=== PATIENT | male | born 1945 | race Caucasian/White ===

== ENCOUNTER 2021-10-26 07:52 | Inpatient (IN) ==
[2021-10-26] MEDS ORDERED: IOPAMIDOL 100 ML BOTTLE IV ONE ×2 (07:53)
[2021-10-26] MEDS ORDERED: 0.9 % SODIUM CHLORIDE 1,000 ML IV ONE (08:06)
[2021-10-26 08:30] LABS: POC Calcium, Ionized 1.08 (1.16-1.32); POC Creatinine 0.9 (0.6-1.2); POC Potassium 2.4 (3.3-5.1)
[2021-10-26 09:30] LABS: Partial Thromboplastin Time 31.3 sec (20.0-37.0)
[2021-10-26 09:37] LABS: INR 1.6 (0.9-1.1); Prothrombin Time 19.3 sec (11.9-14.5)
[2021-10-26 09:49] LABS: ALT/SGPT 9 U/L (<40); AST/SGOT 20 U/L (<40); Albumin 2.7 gm/dL (3.2-5.2); Alkaline Phosphatase 95 U/L (39-117); Bilirubin,Total 1.1 mg/dL (0.1-1.0); Blood Urea Nitrogen 13 mg/dL (8-23); Calcium 8.1 mg/dL (8.6-10.4); Carbon Dioxide 21 mmol/L (22-30); Chloride 94 mmol/L (96-108); Globulin 2.6 gm/dL (2.2-3.7); Glomerular Filtration Rate 83; Glucose 206 mg/dL (70-105)
--- NOTE | 2021-10-26 10:02 | XRay Report ---
CLINICAL INFORMATION: Weakness COMPARISON: None. TECHNIQUE: Portable FINDINGS: The heart size, mediastinum and pulmonary vessels are unremarkable. The lungs are clear. There are no effusions. The bones and soft tissues are within normal limits. IMPRESSION: Normal chest. Interpreted and Authenticated by: Lencho Jurado 10/26/21
[2021-10-26 10:28] LABS: Basophils # (Auto) 0.01 K/mcL (0.00-0.30); Eosinophils # (Auto) 0 K/mcL (0.00-0.70); Hematocrit 27.5 % (40.1-51.0); Hemoglobin 9.5 g/dL (13.7-17.5); Lymphocytes # (Auto) 0.34 K/mcL (1.50-4.80); Mean Cell Volume 95.5 fL (80.0-100.0); Mean Corpuscular HGB Conc 34.5 g/dL (31.0-36.0); Mean Platelet Volume 10.2 fL (7.4-10.4); Monocytes # (Auto) 0.39 K/mcL (0.10-0.90); Platelet Count 135 K/mcL (140-440); RBC 2.88 M/mcL (4.63-6.08); WBC 1.5 K/mcL (4.5-11.0)
[2021-10-26] MEDS ORDERED: MAGNESIUM OXIDE 400 MG TABLET PO ONE (10:48)
[2021-10-26] MEDS ORDERED: POTASSIUM CHLORIDE 20 MEQ TABLET PO ONE (10:48)
[2021-10-26] MEDS ORDERED: POTASSIUM CHLORIDE 20 MEQ PACKET PO ONE (11:57)
[2021-10-26] MEDS ORDERED: MAGNESIUM SULFATE 8.12 MEQ in DEXTROSE 5% IN WATER 50 ML IV ONE (11:57)
--- NOTE | 2021-10-26 12:18 | Ultrasound Report ---
CLINICAL INFORMATION: Edema and pain COMPARISON: None. FINDINGS: The entire deep venous system including the common femoral, superficial femoral, popliteal and paired trifurcation calf veins are easily compressible and show normal venous blood flow on color and spectral Doppler. No evidence of thrombus IMPRESSION: Negative exam - no evidence of deep vein thrombosis. Interpreted and Authenticated by: Lencho Jurado 10/26/21
[2021-10-26] MEDS ORDERED: VANCOMYCIN 1,000 MG in 0.9 % SODIUM CHLORIDE 250 ML IV ONE (12:49)
[2021-10-26] MEDS ORDERED: PIPERACILLIN SODIUM/TAZOBACTAM 4.5 GM in DEXTROSE 5% IN WATER 50 ML IV ONE (12:49)
--- NOTE | 2021-10-26 14:54 | Cat Scan Report ---
CLINICAL INFORMATION: Sacral decubitus ulcer. Evaluate for osteomyelitis COMPARISON: Chest abdomen and pelvic CT 10/11/2021 TECHNIQUE: Following enteric contrast, 80 cc of [id number] were injected intravenously, and 60 seconds later, 0.625 mm helical slices were obtained from the mid heart through the subtrochanteric regions. Following reconstruction, 2.5 mm sagittal, coronal and axial reformatted images were processed and reviewed at bone, lung and soft tissue windows. Five minutes later, 0.625 mm helical slices were obtained from the mid heart through the kidneys and viewed at soft tissue windows.The exam was performed using radiation dose optimization techniques including, but not limited to, automated exposure control, adjustment of the mA and/or kV according to patient size and use of iterative reconstruction technique. FINDINGS: The lung bases are clear. No effusions. The visualized heart is mildly enlarged with calcific plaque the visualized coronary arteries also calcification in the mitral and aortic valves. Abdominal images show diminutive liver with homogeneous attenuation and slight cortical irregularity compatible with cirrhosis. The portal vein and tributaries are normal diameter. There is moderate ascites throughout the abdomen and pelvis. Gallbladder and bile ducts are normal: CBD is 5 mm. Both kidneys, adrenal glands, spleen and pancreas are normal. The aorta is normal diameter with scattered atherosclerotic plaque. Pelvic images show prostate, seminal vesicles and urinary bladder to be normal. The stomach, small and large bowel show symmetric dilatation compatible with ileus. There is mild colonic wall thickening particularly in the mid transverse segment suggesting edema or inflammation. Cerclage clips are present in the mid sigmoid colon reflecting partial colectomy and primary anastomosis. There is no free air. Bone windows show degenerative changes of lower lumbar spine. There is no evidence of osteomyelitis in the sacrococcygeal region in the area reported decubitus ulcer. No evidence of myositis or fasciitis.. IMPRESSION: 1. No evidence of abscess or osteomyelitis in the sacral region in the area of decubitus ulcer. 2. Cirrhosis with moderate ascites. No evidence of portal hypertension. 3. Moderate ileus. Mild wall thickening in the colon likely reflect edema related cirrhosis but colitis is not excluded. Interpreted and Authenticated by: Lencho Jurado 10/26/21
--- NOTE | 2021-10-26 15:45 | Internal Med History&Physical ---
HPI History of Present Illness Patient information: Note initiated : 10/26/21 at 3:32 pm Service Date, if different from initiated Date: [] Patient: Will Lyn 75 y/o M admitted on for Weak. Chief Complaint: [] History of present illness: Mr. Lyn is a 75 year old male with a history of hypertension, diabetes mellitus, obesity, nonhealing decubitus pressure ulcer, colon cancer status post partial hemicolectomy currently receiving chemotherapy who presented to the ED for feeling generally unwell. The patient was supposed to go to wound care today at [facility] but decided to go to the emergency department instead. In the emergency department, the patient was felt to have an infected decubitus ulcer. The patient was started on broad-spectrum antibiotics. In the ED, the patient was noted to be pancytopenic including neutropenia with an absolute neutrophil count of 740. Chemistry panel was noted for mild hyponatremia, hypokalemia, mild metabolic acidosis, relatively normal LFTs, albumin of 2.7. The patient was afebrile in the ED, he deniedrecent fevers. The patient had a CT abdomen and pelvis, the radiology report did not show any evidence of abscess or osteomyelitis in the sacral region of the area of the decubitus ulcer, there was cirrhosis with moderate ascites, no evidence of portal hypertension, there was moderate ileus with mild wall thickening in the colon felt to reflect edema related to cirrhosis but colitis was not excluded. The patient says that he recently experienced diarrhea and lower abdominal pain which is occurred before after receiving chemotherapy. Upon further evaluation, the patient says that he has also recently been having difficulty eating due to oral pain exacerbated by eating, bilateral lower extremity pitting edema. General surgery evaluated the patient and felt that a debridement was necessary. Hospital medicine was consulted for admission. It sounds like the patient's decubitus pressure ulcer started a couple months ago and has been progressively worsening. The patient says he received IV chemotherapy about 2 weeks ago and recently completed oral chemotherapy. Neither the patient nor his accompanying family member know which chemotherapy the patient has received. The patient normally follows at [facility] as well as [facility]. Review of systems Constitutional: Positive for fatigue, no fevers Eyes: no vision changes or pain Cardiovascular: no chest pain, no palpitations Respiratory: no cough or dyspnea Gastrointestinal: Painful swallowing, suprapubic abdominal pain, no nausea, vomiting, or diarrhea Genitourinary: no dysuria or difficulty voiding Musculoskeletal: no arthralgia or myalgia Integumentary: Positive for decubitus pressure ulcer. Neurological: no focal weakness or numbness Psychiatric: no anxiety or depression Physical exam General: Chronically ill-appearing 75-year-old male in no apparent distress. Head: Atraumatic, normal inspection. Eyes: normal appearance, no scleral icterus. Neck: full ROM Respiratory: no respiratory distress. Cardiovascular: normal rate and rhythm, S1, S2. GI/Abdominal: soft, nontender, no guarding. Extremities: bilateral lower extremity pitting edema full range of motion, nontender. Neurological: CN II-XII intact, intact motor, intact sensation. Psychiatric: normal mood. Skin: Palmar and pedal desquamation. PFSH PFSH All Active Problems (Updated 05/28/20 @ 23:34 by Nathan Barnhart DO) Concussion without loss of consciousness (Acute) Laceration (Acute) Fall from slip, trip, or stumble (Acute) Dyslipidemia (Acute) Essential hypertension (Acute) Type 2 diabetes mellitus (Acute) Medical History (Updated 05/28/20 @ 23:34 by Nathan Barnhart DO) Dyslipidemia Essential hypertension Type 2 diabetes mellitus MEDS/ALLERGIES Home Medications and Allergies Home Medications Medication Instructions Recorded Confirmed Type aspirin 325 mg tablet 325 mg PO DAILY 05/28/20 05/28/20 History atorvastatin 80 mg tablet 80 mg PO HS 05/28/20 05/28/20 History cinnamon bark 500 mg capsule 1,000 mg PO DAILY 05/28/20 05/28/20 History (Cinnamon) lisinopril 10 mg tablet 10 mg PO QDAY 05/28/20 05/28/20 History metformin 1,000 mg tablet 1,000 mg PO BID 05/28/20 05/28/20 History pioglitazone 30 mg tablet 30 mg PO QDAY 05/28/20 05/28/20 History salmon oil-omega-3 fatty acids 1,000 cap PO DAILY 05/28/20 05/28/20 History 1,000 mg-200 mg capsule Allergies Allergy/AdvReac Type Severity Reaction Status Date / Time No Known Drug Allergies Allergy Verified 10/26/21 07:53 EXAM Constitutional Vitals: Temp Pulse Resp BP Pulse Ox 98.4 F 67 16 76/52 96 10/26/21 07:53 10/26/21 14:59 10/26/21 07:53 10/26/21 14:59 10/26/21 14:59 DATA Data Completed and Pending Labs: Labs from last 24 hours 10/26/21 10/26/21 10/26/21 11:51 08:29 08:27 WBC RBC Hgb Hct POC Hct 26.0 L MCV MCH MCHC RDW Plt Count MPV Neut % (Auto) Lymph % (Auto) [place] % (Auto) Eos % (Auto) Baso % (Auto) Lymph # (Auto) [place] # (Auto) Eos # (Auto) Baso # (Auto) Absolute Neutrophils PT INR APTT VBG Lactic Acid 1.3 POC Sodium 132 L Sodium POC Potassium 2.4 L* Potassium POC Chloride 95 L Chloride Carbon Dioxide POC Total CO2 24.0 Anion Gap POC BUN 13 BUN Creatinine POC Creatinine 0.9 GFR Calculation Glucose POC Glucose 209 H Calcium POC WB Ioniz Calcium 1.08 L Total Bilirubin AST ALT Alkaline Phosphatase Total Protein Albumin Globulin Albumin/Globulin Ratio POC Troponin I 0.02 10/26/21 10/26/21 10/26/21 08:20 08:20 08:20 WBC 1.5 L RBC 2.88 L Hgb 9.5 L Hct 27.5 L POC Hct MCV 95.5 MCH 33.0 MCHC 34.5 RDW Plt Count 135 L MPV 10.2 Neut % (Auto) TNP Lymph % (Auto) TNP [place] % (Auto) TNP Eos % (Auto) TNP Baso % (Auto) TNP Lymph # (Auto) 0.34 L [place] # (Auto) 0.39 Eos # (Auto) 0 Baso # (Auto) 0.01 Absolute Neutrophils 0.74 L* PT 19.3 H INR 1.6 H APTT 31.3 VBG Lactic Acid 2.1 H POC Sodium Sodium 131 L POC Potassium Potassium 2.6 L* POC Chloride Chloride 94 L Carbon Dioxide 21 L POC Total CO2 Anion Gap 16.0 POC BUN BUN 13 Creatinine 0.9 POC Creatinine GFR Calculation 83 Glucose 206 H POC Glucose Calcium 8.1 L POC WB Ioniz Calcium Total Bilirubin 1.1 H AST 20 ALT 9 Alkaline Phosphatase 95 Total Protein 5.3 L Albumin 2.7 L Globulin 2.6 Albumin/Globulin Ratio 1.0 POC Troponin I A/P Narrative A/P Narrative: Assessment: 75 year old male with a history of diabetes mellitus, obesity, nonhealing decubitus pressure ulcer, colon cancer status post partial hemicolectomy currently receiving chemotherapy who presented to the ED for feeling generally unwell. In the ED, the patient was found to be pancytopenic, likely secondary to chemotherapy, and hypokalemic. General surgery was consulted regarding the patient's decubitus ulcer, recommended surgical debridement. Hospital medicine was consulted for admission due to the patient's comorbidities. #Decubitus pressure ulcer #Pancytopenia likely due to chemotherapy #Afebrile neutropenia #Hypokalemia likely secondary to loop diuretic #Bilateral lower extremity pedal edema #Liver cirrhosis with moderate ascites #Oropharyngeal candidiasis #Possible moderate ileus and mild colonic wall thickening #Diabetes mellitus #Colon cancer status post partial hemicolectomy currently on chemotherapy #Malnourishment Plan -General surgery consulted to evaluate pressure ulcer, wound care recom mendations. -Received antibiotics in the ED, will hold off for now in case surgical cultures can be obtained. -Monitor CBC, if the patient develops a fever will start antibiotics for neutropenic fever. -Check procalcitonin and CRP. -Replace potassium and follow. -Echocardiogram for bilateral lower extremity edema in the setting of a chemotherapy. -Nystatin for oropharyngeal candidiasis, treat for 7 to 14 days -Correction Humalog SSImedium. -Check hemoglobin A1c. -Home medication reconciliation, resume important meds. 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 -Wound cares. -NPO at midnight for surgery. -DVT prophylaxis: Hold until after surgery. -Disposition: TBD Time Spent With Patient Time: Total time spent is greater than 50% in coordination of care (as documented) at patient's floor/unit and/or counseling patient:
[2021-10-26] MEDS ORDERED: CLOTRIMAZOLE 10 MG TROCHE PO SCH (17:00)
[2021-10-26] MEDS ORDERED: DEXTROSE 31 GM ORAL.SUSP PO PRN (17:19)
[2021-10-26] MEDS ORDERED: DEXTROSE 50% 50 ML VIAL IV PRN (17:19)
[2021-10-26] MEDS: NYSTATIN 500,000 UNITS/5 ML ORAL.SUSP SSW SCH ×2 (18:04→20:40)
[2021-10-26 18:05] LABS: C-Reactive Protein 4.7 mg/dL (0.03-0.80)
--- NOTE | 2021-10-26 18:07 | General Surgery Consult Note ---
HPI Data of Consult Patient: new to practice Consult date: 10/26/21 Primary Care Provider: Qasim Murphy Consult Narrative Patient Information: Note initiated : 10/26/21 at 6:00 pm Service Date, if different from initiated Date: [] Patient: Will Lyn 75 y/o M admitted on 10/26/21 for Weakness. Mr. Lyn is a 75 year old male with a history of hypertension, diabetes mellitus, obesity, nonhealing decubitus pressure ulcer, colon cancer status post partial hemicolectomy currently receiving chemotherapy who presented to the ED for feeling generally unwell. The patient was supposed to go to wound care today at [facility] but decided to go to the emergency department instead. In the emergency department, the patient was felt to have an infected decubitus ulcer. The patient was started on broad-spectrum antibiotics. In the ED, the patient was noted to be pancytopenic including neutropenia with an absolute neutrophil count of 740. Chemistry panel was noted for mild hyponatremia, hypokalemia, mild metabolic acidosis, relatively normal LFTs, albumin of 2.7. T he patient was afebrile in the ED, he deniedrecent fevers. The patient had a CT abdomen and pelvis, the radiology report did not show any evidence of abscess or osteomyelitis in the sacral region of the area of the decubitus ulcer, there was cirrhosis with moderate ascites, no evidence of portal hypertension, there was moderate ileus with mild wall thickening in the colon felt to reflect edema related to cirrhosis but colitis was not excluded. The patient says that he recently experienced diarrhea and lower abdominal pain which is occurred before after receiving chemotherapy. Upon further evaluation, the patient says that he has also recently been having difficulty eating due to oral pain exacerbated by eating, bilateral lower extremity pitting edema. It sounds like the patient's decubitus pressure ulcer started a couple months ago and has been progressively worsening. The patient says he received IV chemotherapy about 2 weeks ago and recently completed oral chemotherapy. Neither the patient nor his accompanying family member know which chemotherapy the patient has received. The patient normally follows at [facility] as well as [facility]. Chief Complaint: [] Reason for consult: Evaluate for sacral decubitis cc:: CC: Griffin Anaya MD Review of Systems Review of systems: all systems reviewed, negative other than above PFSH PFSH All Active Problems Decubitus ulcer of sacral region, unstageable (Acute) Concussion without loss of consciousness (Acute) Laceration (Acute) Fall from slip, trip, or stumble (Acute) Dyslipidemia (Acute) Essential hypertension (Acute) Type 2 diabetes mellitus (Acute) Medical History Dyslipidemia Essential hypertension Type 2 diabetes mellitus MEDS/ALLERGIES Home Medications and Allergies Home Medications Medication Instructions Recorded Confirmed Type atorvastatin 80 mg tablet 80 mg PO HS 05/28/20 10/26/21 History cinnamon bark 500 mg capsule 1,000 mg PO DAILY 05/28/20 10/26/21 History (Cinnamon) metformin 1,000 mg tablet 1,000 mg PO BID 05/28/20 10/26/21 History salmon oil-omega-3 fatty acids 1,000 cap PO DAILY 05/28/20 10/26/21 History 1,000 mg-200 mg capsule cholestyramine (with sugar) 4 gram 1 ea PO BID 10/26/21 10/26/21 History oral powder diphenoxylate-atropine 2.5 2 tab PO QID 10/26/21 10/26/21 History mg-0.025 mg tablet doxycycline hyclate 100 mg capsule 1 cap PO BID 10/26/21 10/26/21 History furosemide 40 mg tablet 1 tab PO QDAY 10/26/21 10/26/21 History ondansetron HCl 8 mg tablet 8 mg PO Q8HP PRN 10/26/21 10/26/21 History pioglitazone 30 mg tablet 1 tab PO QDAY 10/26/21 10/26/21 History Allergies Allergy/AdvReac Type Severity Reaction Status Date / Time No Known Drug Allergies Allergy Verified 10/26/21 07:53 Physical Examination Vital Signs Vital signs: Temp Pulse Resp BP Pulse Ox 98.4 F 58 L 16 103/61 100 10/26/21 07:53 10/26/21 16:01 10/26/21 07:53 10/26/21 16:01 10/26/21 16:01 General physical appearance General physical exam: well developed, well nourished and no distress Eyes Eye exam: PERRL and normal ocular movement ENT ENT exam: normal pinna, normal nares, normal mucosa, no hearing loss and no congestion Head Head exam IM: Present atraumatic and normocephalic Neck Neck exam: no masses, no bruits, trachea midline, no lymphadenopathy and no venous distension Cardiovascular Cardiovascular exam IM: Present normal rate and rhythm Respiratory Respiratory exam: normal expansion, normal respiratory effort, clear to percussion and clear to auscultation Abdomen Abdomen: Present soft, non tender and bowel sounds Hernia: Present none Genitourinary Genitourinary (Male): Present normal penis with no external lesions Rectum Rectum: Present normal sphincter tone, no hemorrhoids, no tenderness, no masses and no bleeding Integumentary Integumentary: Present no rash, no growths and no abnormal pigmentation Neurologic Neurologic: Present normal coordination and normal sensation Musculoskeletal Musculoskeletal: Present normal gait and normal posture Psychiatric Psychiatric: Present oriented to time, oriented to person, oriented to place, speech is normal and memory intact Additional Findings Additional exam: non-stageable sacral decubitus ulcer Results Labs Result diagrams: 10/26/21 08:20 10/26/21 08:20 Labs: Abnormal lab results 10/26/21 10/26/21 10/26/21 Range/Units 08:20 08:20 08:20 WBC 1.5 L (4.5-11.0) K/mcL RBC 2.88 L (4.63-6.08) M/mcL Hgb 9.5 L (13.7-17.5) g/dL Hct 27.5 L (40.1-51.0) % POC Hct (41-55) Plt Count 135 L (140-440) K/mcL Lymph # (Auto) 0.34 L (1.50-4.80) K/mcL Absolute Neutrophils 0.74 L* (1.80-8.00) K/mcL PT 19.3 H (11.9-14.5) sec INR 1.6 H (0.9-1.1) VBG Lactic Acid 2.1 H (0.5-2.0) mmol/L POC Sodium (133-145) Sodium 131 L (133-145) mmol/L POC Potassium (3.3-5.1) Potassium 2.6 L* (3.3-5.1) mmol/L POC Chloride (96-108) Chloride 94 L (96-108) mmol/L Carbon Dioxide 21 L (22-30) mmol/L Glucose 206 H (70-105) mg/dL POC Glucose (70-105) Calcium 8.1 L (8.6-10.4) mg/dL POC WB Ioniz Calcium (1.16-1.32) Total Bilirubin 1.1 H (0.1-1.0) mg/dL Total Protein 5.3 L (5.9-8.4) gm/dL Albumin 2.7 L (3.2-5.2) gm/dL 10/26/21 Range/Units 08:27 WBC (4.5-11.0) K/mcL RBC (4.63-6.08) M/mcL Hgb (13.7-17.5) g/dL Hct (40.1-51.0) % POC Hct 26.0 L (41-55) Plt Count (140-440) K/mcL Lymph # (Auto) (1.50-4.80) K/mcL Absolute Neutrophils (1.80-8.00) K/mcL PT (11.9-14.5) sec INR (0.9-1.1) VBG Lactic Acid (0.5-2.0) mmol/L POC Sodium 132 L (133-145) Sodium (133-145) mmol/L POC Potassium 2.4 L* (3.3-5.1) Potassium (3.3-5.1) mmol/L POC Chloride 95 L (96-108) Chloride (96-108) mmol/L Carbon Dioxide (22-30) mmol/L Glucose (70-105) mg/dL POC Glucose 209 H (70-105) Calcium (8.6-10.4) mg/dL POC WB Ioniz Calcium 1.08 L (1.16-1.32) Total Bilirubin (0.1-1.0) mg/dL Total Protein (5.9-8.4) gm/dL Albumin (3.2-5.2) gm/dL Diabetes panel 10/26/21 Range/Units 08:20 Sodium 131 L (133-145) mmol/L Potassium 2.6 L* (3.3-5.1) mmol/L Chloride 94 L (96-108) mmol/L Carbon Dioxide 21 L (22-30) mmol/L BUN 13 (8-23) mg/dL Creatinine 0.9 (0.7-1.2) mg/dL Glucose 206 H (70-105) mg/dL Calcium 8.1 L (8.6-10.4) mg/dL AST 20 (<40) U/L ALT 9 (<40) U/L Alkaline Phosphatase 95 (39-117) U/L Total Protein 5.3 L (5.9-8.4) gm/dL Albumin 2.7 L (3.2-5.2) gm/dL Calcium panel 10/26/21 Range/Units 08:20 Calcium 8.1 L (8.6-10.4) mg/dL Albumin 2.7 L (3.2-5.2) gm/dL Pituitary panel 10/26/21 Range/Units 08:20 Sodium 131 L (133-145) mmol/L Potassium 2.6 L* (3.3-5.1) mmol/L Chloride 94 L (96-108) mmol/L Carbon Dioxide 21 L (22-30) mmol/L BUN 13 (8-23) mg/dL Creatinine 0.9 (0.7-1.2) mg/dL Glucose 206 H (70-105) mg/dL Calcium 8.1 L (8.6-10.4) mg/dL Adrenal panel 10/26/21 Range/Units 08:20 Sodium 131 L (133-145) mmol/L Potassium 2.6 L* (3.3-5.1) mmol/L Chloride 94 L (96-108) mmol/L Carbon Dioxide 21 L (22-30) mmol/L BUN 13 (8-23) mg/dL Creatinine 0.9 (0.7-1.2) mg/dL Glucose 206 H (70-105) mg/dL Calcium 8.1 L (8.6-10.4) mg/dL Total Bilirubin 1.1 H (0.1-1.0) mg/dL AST 20 (<40) U/L ALT 9 (<40) U/L Alkaline Phosphatase 95 (39-117) U/L Total Protein 5.3 L (5.9-8.4) gm/dL Albumin 2.7 L (3.2-5.2) gm/dL All other labs normal. A/P Assessment and plan (1) Decubitus ulcer of sacral region, unstageable: Plan: can not stage due to necrotic tissue, no evidence of abscess or osteo Plan: will take to OR tomorrow for debridement, further wound care by wound care at that point. Status: Acute Time Spent With Patient Time: Total time spent is greater than 50% in coordination of care (as documented) at patient's floor/unit and/or counseling patient:
[2021-10-26 18:33] LABS: Hemoglobin A1C 6.9 % Hgb (4.0-6.0)
[2021-10-26] MEDS ORDERED: HYDROcodone/APAP 5/325MG TABLET PO PRN (18:34)
[2021-10-26] MEDS: INSULIN LISPRO 1 UNIT/0.01 ML UNIT SQ SCH ×2 (18:35→22:06)
[2021-10-26] MEDS: NYSTATIN 500,000 UNITS/5 ML ORAL.SUSP PO SCH (18:36)
--- NOTE | 2021-10-26 18:57 | Emergency Department Note ---
HPI General Chief complaint: Weakness Stated complaint: Weak Time Seen by Provider: 10/26/21 07:59 Source: EMS Mode of arrival: EMS Limitations: no limitations History of Present Illness HPI Narrative: Narrative: 75-year-old male with history of colon cancer post hemicolectomy chemotherapy fourth round, sacral decubitus region ulcer was going to have initial wound care evaluation today presents for evaluation of about 3 to 4 days of generalized weakness and malaise. He denies fever or chills. He denies chest pain or shortness of breath. He is on unknown chemotherapy drug with oral regimen. He denies any chest pain or pressure. He denies cough or congestion. He denies shortness of breath. He denies abdominal pain or nausea but has had loose stools, no jaswant watery stools. He denies any dysuria or flank pain. He is tolerating p.o. but has reduced p.o. intake Related Data Home Medications Medication Instructions Recorded Confirmed atorvastatin 80 mg tablet 80 mg PO HS 05/28/20 10/26/21 cinnamon bark 500 mg capsule 1,000 mg PO DAILY 05/28/20 10/26/21 (Cinnamon) metformin 1,000 mg tablet 1,000 mg PO BID 05/28/20 10/26/21 salmon oil-omega-3 fatty acids 1,000 cap PO DAILY 05/28/20 10/26/21 1,000 mg-200 mg capsule cholestyramine (with sugar) 4 gram 1 ea PO BID 10/26/21 10/26/21 oral powder diphenoxylate-atropine 2.5 2 tab PO QID 10/26/21 10/26/21 mg-0.025 mg tablet doxycycline hyclate 100 mg capsule 1 cap PO BID 10/26/21 10/26/21 furosemide 40 mg tablet 1 tab PO QDAY 10/26/21 10/26/21 ondansetron HCl 8 mg tablet 8 mg PO Q8HP PRN 10/26/21 10/26/21 pioglitazone 30 mg tablet 1 tab PO QDAY 10/26/21 10/26/21 Allergies Allergy/AdvReac Type Severity Reaction Status Date / Time No Known Drug Allergies Allergy Verified 10/26/21 07:53 Review of Systems ROS ROS Narrative: Narrative: All systems ED: reviewed and negative except as stated. PFSH Narrative Patient History Narrative: Narrative: Medical/Surgical/Family History All Active Problems (Updated 10/26/21 @ 19:02 by Alex Allen DO) Decubitus ulcer, infected (Acute) Decubitus ulcer of sacral region, unstageable (Acute) Concussion without loss of consciousness (Acute) Laceration (Acute) Fall from slip, trip, or stumble (Acute) Dyslipidemia (Acute) Essential hypertension (Acute) Type 2 diabetes mellitus (Acute) Medical History Dyslipidemia Essential hypertension Type 2 diabetes mellitus Social History Smoking Status: Smokeless tobacco Exam Narrative Narrative: Narrative: General Limitations: no limitations General appearance: Present alert and in no apparent distress Head Head: Present atraumatic and normocephalic Eye Eye: Present normal appearance and EOMI ENT ENT: Present normal exam; Absent mucous membranes moist Neck Neck: Present normal inspection and full ROM Chest Chest: Present normal inspection and symmetric chest wall rise Respiratory Respiratory: Present normal lung sounds bilaterally; Absent respiratory distress Cardiovascular Cardiovascular: Present regular rate and normal rhythm Adbominal Abdominal: Present soft; Absent distention or tenderness Extremities Extremities: Present normal inspection, full ROM and other (Bilateral palms and soles erythematous and peeling, or patient reports that has been this way for the past several weeks) Back Back: Present other (Sacral decub ulcer with small amount of purulent drainage, mild surrounding erythema, tender surrounding this area) Neurological Neurological: Present alert, oriented X3 and CN II-XII intact; Absent motor sensory deficit Psychiatric Psychiatric: Present normal affect and normal mood Skin Skin: Present warm (WNL), dry and normal color Course Vital Signs Vital signs: Vital Signs Temperature 98.4 F 10/26/21 07:53 Pulse Rate 82 10/26/21 07:53 Respiratory Rate 16 10/26/21 07:53 Blood Pressure 115/64 10/26/21 07:53 Pulse Oximetry (%) 99 10/26/21 07:53 Temperature 97.6 F 10/26/21 18:15 Pulse Rate 89 10/26/21 18:15 Respiratory Rate 20 10/26/21 18:15 Blood Pressure 83/58 10/26/21 18:15 Pulse Oximetry (%) 100 10/26/21 18:15 [facility] Narrative Medical decision making narrative: Narrative: Patient with generalized weakness and systemic symptoms concerning for infected sacral decubitus ulcer. He has leukopenia likely consistent with this but vitals otherwise normal and I do not believe he has severe sepsis. He felt better after IV fluids and was given vancomycin and Zosyn for broad-spectrum coverage for his wound with underlying diabetes. He was admitted to the hospitalist for further management with surgical consult for debridement. He was also found to have significant hypokalemia which was repleted in the emergency department Lab Data Lab results reviewed: Yes I reviewed the patient's lab results. Result diagrams: 10/26/21 08:20 10/26/21 08:20 Labs: Lab Results 10/26/21 10/26/21 10/26/21 Range/Units 08:20 08:20 08:20 WBC 1.5 L (4.5-11.0) K/mcL RBC 2.88 L (4.63-6.08) M/mcL Hgb 9.5 L (13.7-17.5) g/dL Hct 27.5 L (40.1-51.0) % POC Hct (41-55) MCV 95.5 (80.0-100.0) fL MCH 33.0 (26.0-34.0) pg MCHC 34.5 (31.0-36.0) g/dL RDW (11.5-14.5) % Plt Count 135 L (140-440) K/mcL MPV 10.2 (7.4-10.4) fL Neut % (Auto) TNP Lymph % (Auto) TNP [place] % (Auto) TNP Eos % (Auto) TNP Baso % (Auto) TNP Lymph # (Auto) 0.34 L (1.50-4.80) K/mcL [place] # (Auto) 0.39 (0.10-0.90) K/mcL Eos # (Auto) 0 (0.00-0.70) K/mcL Baso # (Auto) 0.01 (0.00-0.30) K/mcL Absolute Neutrophils 0.74 L* (1.80-8.00) K/mcL PT 19.3 H (11.9-14.5) sec INR 1.6 H (0.9-1.1) APTT 31.3 (20.0-37.0) sec VBG Lactic Acid 2.1 H (0.5-2.0) mmol/L POC Sodium (133-145) Sodium 131 L (133-145) mmol/L POC Potassium (3.3-5.1) Potassium 2.6 L* (3.3-5.1) mmol/L POC Chloride (96-108) Chloride 94 L (96-108) mmol/L Carbon Dioxide 21 L (22-30) mmol/L POC Total CO2 (22-30) Anion Gap 16.0 (8.0-16.0) POC BUN (6-20) BUN 13 (8-23) mg/dL Creatinine 0.9 (0.7-1.2) mg/dL POC Creatinine (0.6-1.2) GFR Calculation 83 Glucose 206 H (70-105) mg/dL POC Glucose (70-105) Hemoglobin A1c (4.0-6.0) % Hgb Estim Average Glucose mg/dL Calcium 8.1 L (8.6-10.4) mg/dL POC WB Ioniz Calcium (1.16-1.32) Magnesium (1.6-2.5) mg/dL Total Bilirubin 1.1 H (0.1-1.0) mg/dL AST 20 (<40) U/L ALT 9 (<40) U/L Alkaline Phosphatase 95 (39-117) U/L C-Reactive Protein (0.03-0.80) mg/dL Total Protein 5.3 L (5.9-8.4) gm/dL Albumin 2.7 L (3.2-5.2) gm/dL Globulin 2.6 (2.2-3.7) gm/dL Albumin/Globulin Ratio 1.0 (1.0-2.3) Procalcitonin (<0.10) ng/mL POC Troponin I (0.02-0.08) 10/26/21 10/26/21 10/26/21 Range/Units 08:27 08:29 08:40 WBC (4.5-11.0) K/mcL RBC (4.63-6.08) M/mcL Hgb (13.7-17.5) g/dL Hct (40.1-51.0) % POC Hct 26.0 L (41-55) MCV (80.0-100.0) fL MCH (26.0-34.0) pg MCHC (31.0-36.0) g/dL RDW (11.5-14.5) % Plt Count (140-440) K/mcL MPV (7.4-10.4) fL Neut % (Auto) Lymph % (Auto) [place] % (Auto) Eos % (Auto) Baso % (Auto) Lymph # (Auto) (1.50-4.80) K/mcL [place] # (Auto) (0.10-0.90) K/mcL Eos # (Auto) (0.00-0.70) K/mcL Baso # (Auto) (0.00-0.30) K/mcL Absolute Neutrophils (1.80-8.00) K/mcL PT (11.9-14.5) sec INR (0.9-1.1) APTT (20.0-37.0) sec VBG Lactic Acid (0.5-2.0) mmol/L POC Sodium 132 L (133-145) Sodium (133-145) mmol/L POC Potassium 2.4 L* (3.3-5.1) Potassium (3.3-5.1) mmol/L POC Chloride 95 L (96-108) Chloride (96-108) mmol/L Carbon Dioxide (22-30) mmol/L POC Total CO2 24.0 (22-30) Anion Gap (8.0-16.0) POC BUN 13 (6-20) BUN (8-23) mg/dL Creatinine (0.7-1.2) mg/dL POC Creatinine 0.9 (0.6-1.2) GFR Calculation Glucose (70-105) mg/dL POC Glucose 209 H (70-105) Hemoglobin A1c 6.9 H (4.0-6.0) % Hgb Estim Average Glucose 151 mg/dL Calcium (8.6-10.4) mg/dL POC WB Ioniz Calcium 1.08 L (1.16-1.32) Magnesium 1.8 (1.6-2.5) mg/dL Total Bilirubin (0.1-1.0) mg/dL AST (<40) U/L ALT (<40) U/L Alkaline Phosphatase (39-117) U/L C-Reactive Protein 4.70 H (0.03-0.80) mg/dL Total Protein (5.9-8.4) gm/dL Albumin (3.2-5.2) gm/dL Globulin (2.2-3.7) gm/dL Albumin/Globulin Ratio (1.0-2.3) Procalcitonin (<0.10) ng/mL POC Troponin I 0.02 (0.02-0.08) 10/26/21 10/26/21 Range/Units 08:40 11:51 WBC (4.5-11.0) K/mcL RBC (4.63-6.08) M/mcL Hgb (13.7-17.5) g/dL Hct (40.1-51.0) % POC Hct (41-55) MCV (80.0-100.0) fL MCH (26.0-34.0) pg MCHC (31.0-36.0) g/dL RDW (11.5-14.5) % Plt Count (140-440) K/mcL MPV (7.4-10.4) fL Neut % (Auto) Lymph % (Auto) [place] % (Auto) Eos % (Auto) Baso % (Auto) Lymph # (Auto) (1.50-4.80) K/mcL [place] # (Auto) (0.10-0.90) K/mcL Eos # (Auto) (0.00-0.70) K/mcL Baso # (Auto) (0.00-0.30) K/mcL Absolute Neutrophils (1.80-8.00) K/mcL PT (11.9-14.5) sec INR (0.9-1.1) APTT (20.0-37.0) sec VBG Lactic Acid 1.3 (0.5-2.0) mmol/L POC Sodium (133-145) Sodium (133-145) mmol/L POC Potassium (3.3-5.1) Potassium (3.3-5.1) mmol/L POC Chloride (96-108) Chloride (96-108) mmol/L Carbon Dioxide (22-30) mmol/L POC Total CO2 (22-30) Anion Gap (8.0-16.0) POC BUN (6-20) BUN (8-23) mg/dL Creatinine (0.7-1.2) mg/dL POC Creatinine (0.6-1.2) GFR Calculation Glucose (70-105) mg/dL POC Glucose (70-105) Hemoglobin A1c (4.0-6.0) % Hgb Estim Average Glucose mg/dL Calcium (8.6-10.4) mg/dL POC WB Ioniz Calcium (1.16-1.32) Magnesium (1.6-2.5) mg/dL Total Bilirubin (0.1-1.0) mg/dL AST (<40) U/L ALT (<40) U/L Alkaline Phosphatase (39-117) U/L C-Reactive Protein (0.03-0.80) mg/dL Total Protein (5.9-8.4) gm/dL Albumin (3.2-5.2) gm/dL Globulin (2.2-3.7) gm/dL Albumin/Globulin Ratio (1.0-2.3) Procalcitonin 0.47 H (<0.10) ng/mL POC Troponin I (0.02-0.08) ED POC Tests ED POC Tests: MARCIE - SARS Antigen Negative Radiology Data Radiology results reviewed: Yes I reviewed the patient's radiology results. Discharge Plan Patient/Caregiver Discharge Instructions Pt seen by DUMPER [employer] CLEANER/PA only: No Clinical Impression: Decubitus ulcer, infected Patient Disposition: Xfer As Inpt ([facility]) Discharge Date/Time: 10/26/21 17:11
[2021-10-26 19:11] LABS: Appearance,Urine CLEAR (Clear); Bilirubin,Urine Negative (Negative); Color,Urine YELLOW; Culture Indicated,Urine No; Glucose,Urine (UA) >=500 mg/dL (Negative); Ketones,Urine 20 mg/dL (Negative); Leukocyte Esterase,Urine Negative /uL (Negative); Mucus,Urine FEW /hpf; Nitrate,Urine Negative (Negative); Protein,Urine Negative (Negative); Specific Gravity,Urine 1.038 (1.000-1.035); Urine Blood 0.03 mg/dL (Negative); Urine RBC < 1 /hpf (0-3); Urine Squamous Epithelial Cell 0 /hpf (0-4); Urine WBC 5 /hpf (0-4); Urobilinogen,Urine Negative
[2021-10-26] MEDS: ACETAMINOPHEN 500 MG TABLET PO PRN (20:40)
[2021-10-26] MEDS: ATORVASTATIN 40 MG TABLET PO SCH (20:40)
[2021-10-26] MEDS: CHOLESTYRAMINE/ASPARTAME 4 GM POWD.PACK PO SCH (21:55)
[2021-10-26] MEDS: 0.9 % SODIUM CHLORIDE 10 ML SYRINGE IV SCH (22:07)
[2021-10-26] MEDS: SENNOSIDES 1 TABLET PO SCH (22:07)
[2021-10-27] MEDS: ACETAMINOPHEN 500 MG TABLET PO PRN (03:52)
[2021-10-27] MEDS: 0.9 % SODIUM CHLORIDE 10 ML SYRINGE IV SCH ×3 (05:58→21:06)
[2021-10-27 06:45] LABS: Hematocrit 24.4 % (40.1-51.0); Hemoglobin 8.6 g/dL (13.7-17.5); Mean Cell Volume 94.9 fL (80.0-100.0); Mean Corpuscular HGB Conc 35.2 g/dL (31.0-36.0); Mean Platelet Volume 9.6 fL (7.4-10.4); Platelet Count 119 K/mcL (140-440); RBC 2.57 M/mcL (4.63-6.08); WBC 3.3 K/mcL (4.5-11.0)
[2021-10-27 07:20] LABS: ALT/SGPT 9 U/L (<40); AST/SGOT 18 U/L (<40); Albumin 2.2 gm/dL (3.2-5.2); Alkaline Phosphatase 86 U/L (39-117); Bilirubin,Direct 0.6 mg/dL (<0.3); Blood Urea Nitrogen 16 mg/dL (8-23); Calcium 7.8 mg/dL (8.6-10.4); Carbon Dioxide 21 mmol/L (22-30); Chloride 97 mmol/L (96-108); Globulin 2.3 gm/dL (2.2-3.7); Glomerular Filtration Rate 87; Glucose 140 mg/dL (70-105); Lactate Dehydrogenase 226 U/L (135-225); Phosphorous 1.3 mg/dL (2.5-4.5); Triglycerides 71 mg/dL (<150); Uric Acid 1.9 mg/dL (2.5-8.0)
[2021-10-27] MEDS ORDERED: POTASSIUM CHLORIDE 20 MEQ TABLET PO ONE ×2 (07:26→12:08)
[2021-10-27] MEDS: INSULIN LISPRO 1 UNIT/0.01 ML UNIT SQ SCH ×4 (07:36→21:05)
[2021-10-27] MEDS: CHOLESTYRAMINE/ASPARTAME 4 GM POWD.PACK PO SCH ×2 (07:39→21:15)
[2021-10-27] MEDS ORDERED: POTASSIUM PHOSPHATE 40 MEQ in DEXTROSE 5% IN WATER 500 ML IV SCH (08:00)
[2021-10-27 08:56] LABS: Anisocytosis 2+ (None Seen); Band Neutrophils % 18 % (0-10); Eosinophils % (Manual) 1 % (0-7); Lymphocytes % 26 % (15-49); Metamyelocytes % 6 %; Monocytes % (Manual) 15 % (1-12); Myelocytes % 6 %; Nucleated Red Blood Cells 3 % (0-0); Platelet Estimate DECREASED (Normal); RBC Morphology ABNORMAL (Normal); Segmented Neutrophils % 28 % (38-78)
[2021-10-27] MEDS ORDERED: FUROSEMIDE 40 MG TABLET PO SCH (09:00)
[2021-10-27] MEDS: NYSTATIN 500,000 UNITS/5 ML ORAL.SUSP SSW SCH ×4 (09:47→21:05)
[2021-10-27] MEDS ORDERED: SCOPOLAMINE 1 PATCH PATCH TOPICAL PRN (10:00)
[2021-10-27] MEDS ORDERED: IPRATROPIUM/ALBUTEROL 3 ML AMPUL.NEB NEB PRN (10:00)
[2021-10-27] MEDS ORDERED: fentaNYL 100 MCG/2 ML VIAL IV ONE ×2 (10:23)
[2021-10-27] MEDS ORDERED: KETAMINE 50 MG/ML Syringe (ANEST) IV ONE ×3 (10:23)
[2021-10-27] MEDS ORDERED: PROPOFOL 200 MG/20 ML VIAL IV ONE ×2 (10:23)
[2021-10-27] MEDS ORDERED: ONDANSETRON 4 MG/2 ML VIAL ONE ×2 (10:23)
[2021-10-27] MEDS ORDERED: DEXAMETHASONE 10 MG/ML VIAL ONE ×2 (10:23)
[2021-10-27] MEDS ORDERED: LIDOCAINE 1% 20 ML, BUPIVACAINE W/EPI 0.5% 20 ML SQ ONE (11:30)
--- NOTE | 2021-10-27 11:35 | Operative Note ---
Brief Operative Note Date of procedure: 10/27/21 Pre-op diagnosis: Sacral decub Post-op diagnosis: other (Gluteal pressure sore) Procedure: Operative debridement down to subcutaneous tissue Grafts/Implants: No Anesthesia: MAC Findings: Necrotic skin down to subcutaneous tissue Complications: none Surgeon: Tunde Mullins Estimated blood loss (cc): 10 Specimens Removed/Pathology: other (Necrotic skin right gluteal lesion) Condition: stable Disposition: PACU Operative Note Operative Note: After Hours benefits and alternatives to the procedure were discussed with the patient at length he verbalized understanding and desire to continue the procedure. Patient was taken main operating place upon the operative table. Monitored anesthesia care was administered throughout the case. Patient's and draped in the standard sterile surgical fashion after being placed in a left lateral decubitus position. Surgical timeout was taken to verify patient and procedure being performed. 1% lidocaine half percent Marcaine was used for local anesthesia. Attention was first turned to the right gluteal wound where the necrotic area of the skin was sharply excised down to the subcutaneous tissue. The necrosis did not extend past the skin and dermis and good healthy subcutaneous tissues were identified. Hemostasis was obtained with electrocautery. The skin was passed off the field for surgical pathology. Attention was turned to the left gluteal region where no further pathology was identified. Betadine soaked 4 x 4 gauze was placed in the wound covered with an ABD and mesh underwear. Patient was then awake from a seizure transported postanesthesia care unit awake alert in good condition.
--- NOTE | 2021-10-27 15:54 | Internal Med Progress Note ---
SUBJECTIVE Subjective Patient information: Note initiated : 10/27/21 at 3:53 pm Service Date, if different from initiated Date: [] Patient: Will Lyn 75 y/o M admitted on 10/26/21 for Weak. Chief Complaint: [] Interval history: Mr. Lyn is a 75 year old male with a history of hypertension, diabetes mellitus, obesity, nonhealing decubitus pressure ulcer, colon cancer status post partial hemicolectomy currently receiving chemotherapy who presented to the ED for feeling generally unwell. The patient was supposed to go to wound care today at [facility] but decided to go to the emergency department instead. In the emergency department, the patient was felt to have an infected decubitus ulcer. The patient was started on broad-spectrum antibiotics. In the ED, the patient was noted to be pancytopenic including neutropenia with an absolute neutrophil count of 740. Chemistry panel was noted for mild hyponatremia, hypokalemia, mild metabolic acidosis, relatively normal LFTs, albumin of 2.7. The patient was afebrile in the ED, he deniedrecent fevers. The patient had a CT abdomen and pelvis, the radiology report did not show any evidence of abscess or osteomyelitis in the sacral region of the area of the decubitus ulcer, there was cirrhosis with moderate ascites, no evidence of portal hypertension, there was moderate ileus with mild wall thickening in the colon felt to reflect edema related to cirrhosis but colitis was not excluded. The patient says that he recently experienced diarrhea and lower abdominal pain which is occurred before after receiving chemotherapy. Upon further evaluation, the patient says that he has also recently been having difficulty eating due to oral pain exacerbated by eating, bilateral lower extremity pitting edema. General surgery evaluated the patient and felt that a debridement was necessary. Hospital medicine was consulted for admission. It sounds like the patient's decubitus pressure ulcer started a couple months ago and has been progressively worsening. The patient says he received IV chemotherapy about 2 weeks ago and recently completed oral chemotherapy. Neither the patient nor his accompanying family member know which chemotherapy the patient has received. The patient normally follows at [facility] well as [facility]. 10/27 General surgery performed a debridement of the gluteal pressure ulcer, noted necrotic tissue but no evidence of infection. Replaced potassium and phosphorus, holding lasix until potassium normalizes. Two loose bowel movements this morning per the patient. Physical exam General: Chronically ill-appearing 75-year-old male in no apparent distress. Head: Atraumatic, normal inspection. Eyes: normal appearance, no scleral icterus. Neck: full ROM Respiratory: no respiratory distress. Cardiovascular: normal rate and rhythm, S1, S2. GI/Abdominal: soft, nontender, no guarding. Extremities: bilateral lower extremity pitting edema full range of motion, nontender. Neurological: CN II-XII intact, intact motor, intact sensation. Psychiatric: normal mood. Skin: Palmar and pedal desquamation. Constitutional Vitals: Vital Signs Temp Pulse Resp BP Pulse Ox 97.1 F 72 16 108/67 97 10/27/21 15:39 10/27/21 15:39 10/27/21 15:39 10/27/21 15:39 10/27/21 15:39 Period Temp Pulse Resp BP Sys/Hawkins Pulse Ox Last 24 Hr 96.7 F-97.8 F 58-89 15-20 83-119/51-70 96-100 Intake and Output 10/27/21 10/27/21 10/27/21 05:59 13:59 21:59 Intake Total 055 390.7708 Output Total 5 200 Balance 482 875.4981 Intake & Output: Intake & Output 10/27/21 10/27/21 10/27/21 05:59 13:59 21:59 Intake Total 271 842.8153 Output Total 5 200 Balance 136 832.0925 Intake: IV 509.0909 Potassium Phosphate 40 Meq In 509.0909 Dextrose 5% in Water 500 ml @ 84.848 mls/hr IV 0800 [facility] Rx#: [id number] IV - Manual Only 600 Output: Void Amount 200 Estimated Blood Loss 5 Other: Meal Lunch Percent of Meal Consumed 75% Feeding Ability Independent Urine Color Light Melanie Stool Size Small Small Stool Color Brown Brown Stool Consistency Loose Loose # Voids 1 # Bowel Movements 1 # of times incontinent of 1 Bowels OBJ DATA Labs CBC & Chem 7: 10/27/21 05:21 10/27/21 05:21 Labs: Abnormal Lab Results 10/27/21 10/27/21 10/26/21 05:21 05:21 18:32 WBC 3.3 L RBC 2.57 L Hgb 8.6 L Hct 24.4 L POC Hct Plt Count 119 L Lymph # (Auto) Seg Neutrophils % 28 L Band Neutrophils % 18 H Monocytes % (Manual) 15 H Absolute Neutrophils Nucleated RBCs 3 H Platelet Estimate Decreased A RBC Morphology Abnormal A Anisocytosis 2+ A PT INR VBG Lactic Acid POC Sodium Sodium 132 L POC Potassium Potassium 2.2 L* POC Chloride Chloride Carbon Dioxide 21 L Glucose 140 H POC Glucose Hemoglobin A1c Uric Acid 1.9 L Calcium 7.8 L POC WB Ioniz Calcium Phosphorus 1.3 L Total Bilirubin Direct Bilirubin 0.6 H Lactate Dehydrogenase 226 H C-Reactive Protein Total Protein 4.5 L Albumin 2.2 L Procalcitonin Urine Glucose (UA) >=500 A Urine Ketones 20 A Urine WBC 5 H Urine Mucus Few A 10/26/21 10/26/21 10/26/21 08:40 08:40 08:27 WBC RBC Hgb Hct POC Hct 26.0 L Plt Count Lymph # (Auto) Seg Neutrophils % Band Neutrophils % Monocytes % (Manual) Absolute Neutrophils Nucleated RBCs Platelet Estimate RBC Morphology Anisocytosis PT INR VBG Lactic Acid POC Sodium 132 L Sodium POC Potassium 2.4 L* Potassium POC Chloride 95 L Chloride Carbon Dioxide Glucose POC Glucose 209 H Hemoglobin A1c 6.9 H Uric Acid Calcium POC WB Ioniz Calcium 1.08 L Phosphorus Total Bilirubin Direct Bilirubin Lactate Dehydrogenase C-Reactive Protein 4.70 H Total Protein Albumin Procalcitonin 0.47 H Urine Glucose (UA) Urine Ketones Urine WBC Urine Mucus 10/26/21 10/26/21 10/26/21 08:20 08:20 08:20 WBC 1.5 L RBC 2.88 L Hgb 9.5 L Hct 27.5 L POC Hct Plt Count 135 L Lymph # (Auto) 0.34 L Seg Neutrophils % Band Neutrophils % Monocytes % (Manual) Absolute Neutrophils 0.74 L* Nucleated RBCs Platelet Estimate RBC Morphology Anisocytosis PT 19.3 H INR 1.6 H VBG Lactic Acid 2.1 H POC Sodium Sodium 131 L POC Potassium Potassium 2.6 L* POC Chloride Chloride 94 L Carbon Dioxide 21 L Glucose 206 H POC Glucose Hemoglobin A1c Uric Acid Calcium 8.1 L POC WB Ioniz Calcium Phosphorus Total Bilirubin 1.1 H Direct Bilirubin Lactate Dehydrogenase C-Reactive Protein Total Protein 5.3 L Albumin 2.7 L Procalcitonin Urine Glucose (UA) Urine Ketones Urine WBC Urine Mucus Meds: Medications Acetaminophen (Acetaminophen 500 Mg Tablet) 500 mg PO Q4HP PRN; Protocol PRN Reason: Per Pain Protocol Last Admin: 10/27/21 03:52 Dose: 500 mg Documented by: Hydrocodone Bitart/Acetaminophen (Hydrocodone/Apap 5/325mg Tablet) 1 tab PO Q4HP PRN; Protocol PRN Reason: Per Pain Protocol Atorvastatin Calcium (Atorvastatin 40 Mg Tablet) 80 mg PO [facility] Last Admin: 10/26/21 20:40 Dose: 80 mg Documented by: Cholestyramine Resin (Cholestyramine/Aspartame 4 Gm Powd.Pack) 4 gm PO BID@0700,1900 [facility] Last Admin: 10/27/21 07:39 Dose: Not Given Documented by: Dextrose (Dextrose 50% 50 Ml Vial) 0 ml IV UD PRN PRN Reason: Per Sliding Scale Diagnostic Test (Pha) (Accu-Chek 1 Each Strip) 1 each FS [facility] Last Admin: 10/27/21 11:41 Dose: 1 each Documented by: Glucose (Dextrose 31 Gm Oral.Susp) 15 gm PO PRN PRN PRN Reason: Hypoglycemia Insulin Human Lispro (Insulin Lispro 1 Unit/0.01 Ml Unit) 0 unit SQ [facility]; Protocol Last Admin: 10/27/21 12:31 Dose: 2 units Documented by: Nystatin (Nystatin 500,000 Units/5 Ml Oral.Susp) 500,000 units SSW QID [facility] Stop: 11/02/21 17:18 Last Admin: 10/27/21 15:01 Dose: 500,000 units Documented by: Ondansetron HCl (Ondansetron 4 Mg/2 Ml Vial) 4 mg IV Q6HP PRN PRN Reason: Nausea And Vomiting Senna (Sennosides 1 Tablet) 2 tab PO [facility] Last Admin: 10/26/21 22:07 Dose: Not Given Documented by: Sodium Chloride (0.9 % Sodium Chloride 10 Ml Syringe) 10 ml IV Q8 [facility] Last Admin: 10/27/21 15:18 Dose: 10 ml Documented by: A/P Narrative A/P Narrative: Assessment: 75 year old male with a history of diabetes mellitus, obesity, nonhealing decubitus pressure ulcer, colon cancer status post partial hemicolectomy currently receiving chemotherapy who presented to the ED for feeling generally unwell. In the ED, the patient was found to be pancytopenic, likely secondary to chemotherapy, and hypokalemic. General surgery was consulted regarding the patient's decubitus ulcer, recommended surgical debridement. Hospital medicine was consulted for admission due to the patient's comorbidities. #Gluteal pressure ulcer #Pancytopenia likely due to chemotherapy #Neutropenia #Hypokalemia likely secondary to loop diuretic #Hypophosphatemia #Bilateral lower extremity pedal edema #Liver cirrhosis with moderate ascites #Oropharyngeal candidiasis #Possible mild colonic wall thickening per CT #Diarrhea #Diabetes mellitus #Colon cancer status post partial hemicolectomy currently on chemotherapy #Malnourishment Plan -Monitor CBC and vitals, if the patient develops a fever will start antibiotics for neutropenic fever. -Replace potassium and phosphorus. -Holding home lasix until potassium level normal. -Follow up pending Echocardiogram for bilateral lower extremity edema in the setting of a chemotherapy. -Nystatin for oropharyngeal candidiasis, treat for 7 to 14 days -Correction Humalog SSImedium. -Resume home Atorvastatin and cholestyramine. 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 -Wound cares. -Consistent carbohydrate diet. -media monitor. -DVT prophylaxis: Lovenox -Disposition: TBD, referral to wound care clinic at discharge. Time Spent With Patient Time: Total time spent is greater than 50% in coordination of care (as documented) at patient's floor/unit and/or counseling patient: QUALITY VTE Deep Vein Thrombosis/Pulmonary Embolism Present on Admission: No
[2021-10-27] MEDS: SENNOSIDES 1 TABLET PO SCH (21:06)
[2021-10-27] MEDS: ATORVASTATIN 40 MG TABLET PO SCH (21:06)
[2021-10-28] MEDS: 0.9 % SODIUM CHLORIDE 10 ML SYRINGE IV SCH ×3 (05:40→21:03)
[2021-10-28 06:30] LABS: INR 1.5 (0.9-1.1); Prothrombin Time 18.6 sec (11.9-14.5)
[2021-10-28 06:33] LABS: Basophils # (Auto) 0.06 K/mcL (0.00-0.30); Basophils % (Auto) 1.3 % (0.0-2.0); Eosinophils # (Auto) 0 K/mcL (0.00-0.70); Eosinophils % (Auto) 0 % (0.0-7.0); Hematocrit 26.7 % (40.1-51.0); Lymphocytes # (Auto) 0.45 K/mcL (1.50-4.80); Lymphocytes % (Auto) 9.8 % (15.5-49.0); Mean Cell Volume 96.4 fL (80.0-100.0); Mean Corpuscular HGB Conc 33.7 g/dL (31.0-36.0); Mean Platelet Volume 9.7 fL (7.4-10.4); Monocytes # (Auto) 0.74 K/mcL (0.10-0.90); Monocytes % (Auto) 16.2 % (1.0-12.0); Platelet Count 155 K/mcL (140-440); WBC 4.6 K/mcL (4.5-11.0)
[2021-10-28 06:36] LABS: ALT/SGPT 11 U/L (<40); AST/SGOT 21 U/L (<40); Albumin 2.3 gm/dL (3.2-5.2); Alkaline Phosphatase 91 U/L (39-117); Bilirubin,Direct 0.5 mg/dL (<0.3); Bilirubin,Total 0.8 mg/dL (0.1-1.0); Blood Urea Nitrogen 18 mg/dL (8-23); Carbon Dioxide 23 mmol/L (22-30); Chloride 100 mmol/L (96-108); Globulin 2.3 gm/dL (2.2-3.7); Glomerular Filtration Rate 87; Glucose 210 mg/dL (70-105); Lactate Dehydrogenase 240 U/L (135-225); Phosphorous 2.2 mg/dL (2.5-4.5); Triglycerides 71 mg/dL (<150); Uric Acid 2.1 mg/dL (2.5-8.0)
[2021-10-28 07:22] LABS: Neutrophils % (Auto) 72.7 % (38.0-78.0); RBC 2.77 M/mcL (4.63-6.08)
[2021-10-28] MEDS ORDERED: POTASSIUM CHLORIDE 20 MEQ TABLET PO ONE (07:33)
[2021-10-28] MEDS: INSULIN LISPRO 1 UNIT/0.01 ML UNIT SQ SCH ×4 (08:05→21:03)
[2021-10-28] MEDS: CHOLESTYRAMINE/ASPARTAME 4 GM POWD.PACK PO SCH ×2 (08:10→18:38)
[2021-10-28] MEDS: FUROSEMIDE 40 MG/4 ML VIAL IV SCH ×2 (08:37→16:57)
--- NOTE | 2021-10-28 09:38 | General Surgery Progress Note ---
SUBJECTIVE Subjective Patient information: Note initiated : 10/28/21 at 9:37 am Service Date, if different from initiated Date: [] Patient: Will Lyn 75 y/o M admitted on 10/26/21 for Weak. Chief Complaint: [] Principal diagnosis: Postop day 1 status post debridement of bilateral buttocks pressure wounds. Interval history: No significant changes overnight Constitutional Vitals: Vital Signs Temp Pulse Resp BP Pulse Ox 97.8 F 68 16 115/63 96 10/28/21 06:43 10/28/21 06:43 10/28/21 06:43 10/28/21 06:43 10/28/21 06:43 Period Temp Pulse Resp BP Sys/Hawkins Pulse Ox Last 24 Hr 96.8 F-98.3 F 63-79 16-16 97-123/55-74 96-100 Intake and Output 10/27/21 10/28/21 10/28/21 21:59 05:59 13:59 Intake Total 509.0909 200 Output Total 300 100 150 Balance 209.0909 100 -150 Weight 182 lb 1.6 oz Intake & Output: Intake & Output 10/27/21 10/28/21 10/28/21 21:59 05:59 13:59 Intake Total 509.0909 200 Output Total 300 100 150 Balance 209.0909 100 -150 Weight 182 lb 1.6 oz Intake: IV 509.0909 Potassium Phosphate 40 Meq In 509.0909 Dextrose 5% in Water 500 ml @ 84.848 mls/hr IV 0800 [facility] Rx#: [id number] Oral 200 Output: Void Amount 300 100 Urine/Stool Mix 150 Other: Meal Dinner Percent of Meal Consumed 100% Feeding Ability Independent Urine Color Light Melanie Stool Size Small Stool Color Brown Stool Consistency Soft # of times incontinent of 1 Bowels General appearance: cooperative and no acute distress GI/Abdominal GI/Abdominal exam: Present normal bowel sounds and soft; Absent distended or tenderness A/P Assessment and plan (1) Decubitus ulcer, infected: Status: Acute Plan Twice daily dressing changes to bilateral buttocks pressure wounds. Offloading to decrease further pressure. Follow-up with wound care as an outpatient for further wound care instructions. Time Spent With Patient Time: Total time spent is greater than 50% in coordination of care (as documented) at patient's floor/unit and/or counseling patient:
[2021-10-28] MEDS: INSULIN GLARGINE, HUMAN 1 UNIT/0.01 ML SQ SCH (11:11)
[2021-10-28] MEDS: ENOXAPARIN 40 MG/0.4 ML SYRINGE SQ SCH (11:15)
[2021-10-28] MEDS: NYSTATIN 500,000 UNITS/5 ML ORAL.SUSP SSW SCH ×4 (11:16→21:03)
--- NOTE | 2021-10-28 16:58 | Internal Med Progress Note ---
SUBJECTIVE Subjective Patient information: Note initiated : 10/28/21 at 4:51 pm Service Date, if different from initiated Date: [] Patient: Will Lyn 75 y/o M admitted on 10/26/21 for Weak. Chief Complaint: [] Interval history: Mr. Lyn is a 75 year old male with a history of hypertension, diabetes mellitus, obesity, nonhealing decubitus pressure ulcer, colon cancer status post partial hemicolectomy currently receiving chemotherapy who presented to the ED for feeling generally unwell. The patient was supposed to go to wound care today at [facility] but decided to go to the emergency department instead. In the emergency department, the patient was felt to have an infected decubitus ulcer. The patient was started on broad-spectrum antibiotics. In the ED, the patient was noted to be pancytopenic including neutropenia with an absolute neutrophil count of 740. Chemistry panel was noted for mild hyponatremia, hypokalemia, mild metabolic acidosis, relatively normal LFTs, albumin of 2.7. The patient was afebrile in the ED, he deniedrecent fevers. The patient had a CT abdomen and pelvis, the radiology report did not show any evidence of abscess or osteomyelitis in the sacral region of the area of the decubitus ulcer, there was cirrhosis with moderate ascites, no evidence of portal hypertension, there was moderate ileus with mild wall thickening in the colon felt to reflect edema related to cirrhosis but colitis was not excluded. The patient says that he recently experienced diarrhea and lower abdominal pain which is occurred before after receiving chemotherapy. Upon further evaluation, the patient says that he has also recently been having difficulty eating due to oral pain exacerbated by eating, bilateral lower extremity pitting edema. General surgery evaluated the patient and felt that a debridement was necessary. Hospital medicine was consulted for admission. It sounds like the patient's decubitus pressure ulcer started a couple months ago and has been progressively worsening. The patient says he received IV chemotherapy about 2 weeks ago and recently completed oral chemotherapy. Neither the patient nor his accompanying family member know which chemotherapy the patient has received. The patient normally follows at [facility] well as [facility]. 10/27 General surgery performed a debridement of the gluteal pressure ulcer, noted necrotic tissue but no evidence of infection. Replaced potassium and phosphorus, holding lasix until potassium normalizes. Two loose bowel movements this morning per the patient. 5/7 Stable overnight, neutropenia resolved. Potassium normal today, started Lasix 40 mg IV twice daily. Started Lasix 10 units daily. Transthoracic echocardiogram show LVEF of 50 to 55% with mild hypokinesis of the anterior left ventricular wall, right ventricular systolic function was mildly reduced with a TAPSE of 1.1 cm, RV S' was 10.7 cm/s. Ongoing wound care for gluteal pressure ulcer and disposition planning. Physical exam General: Chronically ill-appearing 75-year-old male in no apparent distress. Head: Atraumatic, normal inspection. Eyes: normal appearance, no scleral icterus. Neck: full ROM Respiratory: no respiratory distress. Cardiovascular: normal rate and rhythm, S1, S2. GI/Abdominal: soft, nontender, no guarding. Extremities: bilateral lower extremity pitting edema full range of motion, nontender. Neurological: CN II-XII intact, intact motor, intact sensation. Psychiatric: normal mood. Skin: Palmar and pedal desquamation. Constitutional Vitals: Vital Signs Temp Pulse Resp BP Pulse Ox 97.6 F 73 18 111/71 96 10/28/21 16:00 10/28/21 16:00 10/28/21 16:00 10/28/21 16:00 10/28/21 16:00 Period Temp Pulse Resp BP Sys/Hawkins Pulse Ox Last 24 Hr 97.2 F-98.3 F 68-81 16-18 111-123/63-74 96-99 Intake and Output 10/28/21 10/28/21 10/28/21 05:59 13:59 21:59 Intake Total 200 360 480 Output Total 100 850 400 Balance 100 -490 80 Intake & Output: Intake & Output 10/28/21 10/28/21 10/28/21 05:59 13:59 21:59 Intake Total 200 360 480 Output Total 100 850 400 Balance 100 -490 80 Intake: Nourishment/Supplement quantity 360 240 (ml) Oral 200 240 Output: Void Amount 100 Urine/Stool Mix 850 400 Other: Meal Breakfast Lunch Percent of Meal Consumed 75% 75% Feeding Ability Independent Independent Nourishment/Supplement name brendenomaira, angelia glucerjakub Stool Size Small Small Stool Color Brown Brown Blood Tinged Stool Consistency Soft Soft # Voids 1 # Bowel Movements 2 # of times incontinent of 1 2 Bowels OBJ DATA Labs CBC & Chem 7: 10/28/21 05:28 10/28/21 05:28 Labs: Abnormal Lab Results 10/28/21 10/28/21 10/28/21 05:28 05:28 05:28 WBC RBC 2.77 L Hgb 9.0 L Hct 26.7 L POC Hct Plt Count Lymph % (Auto) 9.8 L Walsh % (Auto) 16.2 H Lymph # (Auto) 0.45 L Seg Neutrophils % Band Neutrophils % Monocytes % (Manual) Absolute Neutrophils Nucleated RBCs Platelet Estimate RBC Morphology Anisocytosis PT 18.6 H INR 1.5 H VBG Lactic Acid POC Sodium Sodium POC Potassium Potassium POC Chloride Chloride Carbon Dioxide Glucose 210 H POC Glucose Hemoglobin A1c Uric Acid 2.1 L Calcium 8.0 L POC WB Ioniz Calcium Phosphorus 2.2 L Total Bilirubin Direct Bilirubin 0.5 H Lactate Dehydrogenase 240 H C-Reactive Protein Total Protein 4.6 L Albumin 2.3 L Procalcitonin Urine Glucose (UA) Urine Ketones Urine WBC Urine Mucus 10/27/21 10/27/21 10/26/21 05:21 05:21 18:32 WBC 3.3 L RBC 2.57 L Hgb 8.6 L Hct 24.4 L POC Hct Plt Count 119 L Lymph % (Auto) Walsh % (Auto) Lymph # (Auto) Seg Neutrophils % 28 L Band Neutrophils % 18 H Monocytes % (Manual) 15 H Absolute Neutrophils Nucleated RBCs 3 H Platelet Estimate Decreased A RBC Morphology Abnormal A Anisocytosis 2+ A PT INR VBG Lactic Acid POC Sodium Sodium 132 L POC Potassium Potassium 2.2 L* POC Chloride Chloride Carbon Dioxide 21 L Glucose 140 H POC Glucose Hemoglobin A1c Uric Acid 1.9 L Calcium 7.8 L POC WB Ioniz Calcium Phosphorus 1.3 L Total Bilirubin Direct Bilirubin 0.6 H Lactate Dehydrogenase 226 H C-Reactive Protein Total Protein 4.5 L Albumin 2.2 L Procalcitonin Urine Glucose (UA) >=500 A Urine Ketones 20 A Urine WBC 5 H Urine Mucus Few A 10/26/21 10/26/21 10/26/21 08:40 08:40 08:27 WBC RBC Hgb Hct POC Hct 26.0 L Plt Count Lymph % (Auto) Walsh % (Auto) Lymph # (Auto) Seg Neutrophils % Band Neutrophils % Monocytes % (Manual) Absolute Neutrophils Nucleated RBCs Platelet Estimate RBC Morphology Anisocytosis PT INR VBG Lactic Acid POC Sodium 132 L Sodium POC Potassium 2.4 L* Potassium POC Chloride 95 L Chloride Carbon Dioxide Glucose POC Glucose 209 H Hemoglobin A1c 6.9 H Uric Acid Calcium POC WB Ioniz Calcium 1.08 L Phosphorus Total Bilirubin Direct Bilirubin Lactate Dehydrogenase C-Reactive Protein 4.70 H Total Protein Albumin Procalcitonin 0.47 H Urine Glucose (UA) Urine Ketones Urine WBC Urine Mucus 10/26/21 10/26/21 10/26/21 08:20 08:20 08:20 WBC 1.5 L RBC 2.88 L Hgb 9.5 L Hct 27.5 L POC Hct Plt Count 135 L Lymph % (Auto) Walsh % (Auto) Lymph # (Auto) 0.34 L Seg Neutrophils % Band Neutrophils % Monocytes % (Manual) Absolute Neutrophils 0.74 L* Nucleated RBCs Platelet Estimate RBC Morphology Anisocytosis PT 19.3 H INR 1.6 H VBG Lactic Acid 2.1 H POC Sodium Sodium 131 L POC Potassium Potassium 2.6 L* POC Chloride Chloride 94 L Carbon Dioxide 21 L Glucose 206 H POC Glucose Hemoglobin A1c Uric Acid Calcium 8.1 L POC WB Ioniz Calcium Phosphorus Total Bilirubin 1.1 H Direct Bilirubin Lactate Dehydrogenase C-Reactive Protein Total Protein 5.3 L Albumin 2.7 L Procalcitonin Urine Glucose (UA) Urine Ketones Urine WBC Urine Mucus Meds: Medications Acetaminophen (Acetaminophen 500 Mg Tablet) 500 mg PO Q4HP PRN; Protocol PRN Reason: Per Pain Protocol Last Admin: 10/27/21 03:52 Dose: 500 mg Documented by: Hydrocodone Bitart/Acetaminophen (Hydrocodone/Apap 5/325mg Tablet) 1 tab PO Q4HP PRN; Protocol PRN Reason: Per Pain Protocol Atorvastatin Calcium (Atorvastatin 40 Mg Tablet) 80 mg PO HS [facility] Last Admin: 10/27/21 21:06 Dose: 80 mg Documented by: Cholestyramine Resin (Cholestyramine/Aspartame 4 Gm Powd.Pack) 4 gm PO BID@0700,1900 [facility] Last Admin: 10/28/21 08:10 Dose: 4 gm Documented by: Dextrose (Dextrose 50% 50 Ml Vial) 0 ml IV UD PRN PRN Reason: Per Sliding Scale Diagnostic Test (Pha) (Accu-Chek 1 Each Strip) 1 each FS ACHS [facility] Last Admin: 10/28/21 11:56 Dose: 1 each Documented by: Enoxaparin Sodium (Enoxaparin 40 Mg/0.4 Ml Syringe) 40 mg SQ DAILY [facility] Last Admin: 10/28/21 11:15 Dose: 40 mg Documented by: Glucose (Dextrose 31 Gm Oral.Susp) 15 gm PO PRN PRN PRN Reason: Hypoglycemia Insulin Glargine (Insulin Glargine, Human 1 Unit/0.01 Ml) 10 unit SQ DAILY [facility] Last Admin: 10/28/21 11:11 Dose: 10 unit Documented by: Insulin Human Lispro (Insulin Lispro 1 Unit/0.01 Ml Unit) 0 unit SQ ACHS [facility]; Protocol Last Admin: 10/28/21 12:09 Dose: 4 units Documented by: Nystatin (Nystatin 500,000 Units/5 Ml Oral.Susp) 500,000 units SSW QID [facility] Stop: 11/02/21 17:18 Last Admin: 10/28/21 14:37 Dose: 500,000 units Documented by: Ondansetron HCl (Ondansetron 4 Mg/2 Ml Vial) 4 mg IV Q6HP PRN PRN Reason: Nausea And Vomiting Senna (Sennosides 1 Tablet) 2 tab PO HS [facility] Last Admin: 10/27/21 21:06 Dose: Not Given Documented by: Sodium Chloride (0.9 % Sodium Chloride 10 Ml Syringe) 10 ml IV Q8 [facility] Last Admin: 10/28/21 13:45 Dose: 10 ml Documented by: A/P Narrative A/P Narrative: Assessment: 75 year old male with a history of diabetes mellitus, obesity, nonhealing decubitus pressure ulcer, colon cancer status post partial hemicolectomy currently receiving chemotherapy who presented to the ED for feeling generally unwell. In the ED, the patient was found to be pancytopenic, likely secondary to chemotherapy, and hypokalemic. General surgery was consulted regarding the patient's decubitus ulcer, recommended surgical debridement. Hospital medicine was consulted for admission due to the patient's comorbidities. #Gluteal pressure wounds status post debridement 10/27/2021 #Resolved pancytopenia secondary to chemotherapy #Normocytic anemia #Hypophosphatemia #Bilateral lower extremity pedal edema #Liver cirrhosis with moderate ascites #Oropharyngeal candidiasis #Possible mild colonic wall thickening per CT #Diarrhea #Diabetes mellitus #Colon cancer status post partial hemicolectomy currently on chemotherapy #Malnourishment Plan -Replace potassium and phosphorus. -Lasix 40 mg IV twice daily today. -Nystatin for oropharyngeal candidiasis, treat for 7 to 14 days -Correction Humalog SSImedium. -Continue home Atorvastatin and cholestyramine. 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 -Wound cares with the twice daily dressing changes. -Offloading gluteal pressure wounds. -Consistent carbohydrate diet with nutritional supplement. -playground monitor. -DVT prophylaxis: Lovenox -Disposition: TBD, referral to wound care clinic at discharge. Time Spent With Patient Time: Total time spent is greater than 50% in coordination of care (as documented) at patient's floor/unit and/or counseling patient: QUALITY VTE Deep Vein Thrombosis/Pulmonary Embolism Present on Admission: No
[2021-10-28] MEDS: SENNOSIDES 1 TABLET PO SCH (19:32)
[2021-10-28] MEDS ORDERED: DIPHENOXYLATE HCL/ATROPINE 1 TABLET PO SCH (20:00)
[2021-10-28] MEDS: NEUTRA PHOS 1 PACKET PO SCH (21:02)
[2021-10-28] MEDS: ATORVASTATIN 40 MG TABLET PO SCH (21:03)
[2021-10-29] MEDS: 0.9 % SODIUM CHLORIDE 10 ML SYRINGE IV SCH ×3 (05:53→21:09)
[2021-10-29 07:57] LABS: Basophils # (Auto) 0.03 K/mcL (0.00-0.30); Basophils % (Auto) 0.9 % (0.0-2.0); Eosinophils # (Auto) 0 K/mcL (0.00-0.70); Eosinophils % (Auto) 0 % (0.0-7.0); Hematocrit 26.8 % (40.1-51.0); Hemoglobin 8.9 g/dL (13.7-17.5); Lymphocytes % (Auto) 17.2 % (15.5-49.0); Mean Corpuscular HGB Conc 33.2 g/dL (31.0-36.0); Mean Platelet Volume 9.6 fL (7.4-10.4); Monocytes # (Auto) 0.84 K/mcL (0.10-0.90); Monocytes % (Auto) 24.1 % (1.0-12.0); Platelet Count 117 K/mcL (140-440); WBC 3.5 K/mcL (4.5-11.0)
[2021-10-29] MEDS: INSULIN LISPRO 1 UNIT/0.01 ML UNIT SQ SCH ×4 (07:58→21:09)
[2021-10-29] MEDS: ENOXAPARIN 40 MG/0.4 ML SYRINGE SQ SCH (08:03)
[2021-10-29] MEDS: NYSTATIN 500,000 UNITS/5 ML ORAL.SUSP SSW SCH ×4 (08:03→21:09)
[2021-10-29] MEDS: INSULIN GLARGINE, HUMAN 1 UNIT/0.01 ML SQ SCH (08:03)
[2021-10-29] MEDS: DIPHENOXYLATE HCL/ATROPINE 1 TABLET PO SCH ×5 (08:04→21:33)
[2021-10-29 08:14] LABS: ALT/SGPT 11 U/L (<40); AST/SGOT 18 U/L (<40); Albumin 2.3 gm/dL (3.2-5.2); Alkaline Phosphatase 89 U/L (39-117); Bilirubin,Direct 0.3 mg/dL (<0.3); Bilirubin,Total 0.7 mg/dL (0.1-1.0); Blood Urea Nitrogen 25 mg/dL (8-23); Calcium 8.4 mg/dL (8.6-10.4); Carbon Dioxide 25 mmol/L (22-30); Chloride 104 mmol/L (96-108); Globulin 2.3 gm/dL (2.2-3.7); Glomerular Filtration Rate 83; Glucose 158 mg/dL (70-105); Lactate Dehydrogenase 264 U/L (135-225); Phosphorous 2.2 mg/dL (2.5-4.5); Triglycerides 80 mg/dL (<150); Uric Acid 2.7 mg/dL (2.5-8.0)
[2021-10-29] MEDS: NEUTRA PHOS 1 PACKET PO SCH ×2 (08:59→21:09)
[2021-10-29] MEDS: CHOLESTYRAMINE/ASPARTAME 4 GM POWD.PACK PO SCH ×2 (08:59→18:44)
[2021-10-29] MEDS: POTASSIUM CHLORIDE 20 MEQ TABLET PO SCH (09:00)
[2021-10-29 11:27] LABS: Neutrophils % (Auto) 57.8 % (38.0-78.0)
[2021-10-29 11:28] LABS: RBC 2.68 M/mcL (4.63-6.08)
[2021-10-29] MEDS ORDERED: FUROSEMIDE 40 MG/4 ML VIAL IV SCH ×2 (11:45→18:00)
[2021-10-29] MEDS ORDERED: POTASSIUM CHLORIDE 20 MEQ TABLET PO SCH (11:50)
[2021-10-29] MEDS: ONDANSETRON 4 MG/2 ML VIAL IV PRN ×2 (14:57→21:24)
--- NOTE | 2021-10-29 15:54 | Internal Med Progress Note ---
SUBJECTIVE Subjective Patient information: Note initiated : 10/29/21 at 3:49 pm Service Date, if different from initiated Date: [] Patient: Will Lyn 75 y/o M admitted on 10/26/21 for Weak. Chief Complaint: [] Principal diagnosis: Postop day 1 status post debridement of bilateral buttocks pressure wounds. Interval history: Mr. Lyn is a 75 year old male with a history of hypertension, diabetes mellitus, obesity, nonhealing decubitus pressure ulcer, colon cancer status post partial hemicolectomy currently receiving chemotherapy who presented to the ED for feeling generally unwell. The patient was supposed to go to wound care today at [facility] but decided to go to the emergency department instead. In the emergency department, the patient was felt to have an infected decubitus ulcer. The patient was started on broad-spectrum antibiotics. In the ED, the patient was noted to be pancytopenic including neutropenia with an absolute neutrophil count of 740. Chemistry panel was noted for mild hyponatremia, hyp okalemia, mild metabolic acidosis, relatively normal LFTs, albumin of 2.7. The patient was afebrile in the ED, he deniedrecent fevers. The patient had a CT abdomen and pelvis, the radiology report did not show any evidence of abscess or osteomyelitis in the sacral region of the area of the decubitus ulcer, there was cirrhosis with moderate ascites, no evidence of portal hypertension, there was moderate ileus with mild wall thickening in the colon felt to reflect edema related to cirrhosis but colitis was not excluded. The patient says that he recently experienced diarrhea and lower abdominal pain which is occurred before after receiving chemotherapy. Upon further evaluation, the patient says that he has also recently been having difficulty eating due to oral pain exacerbated by eating, bilateral lower extremity pitting edema. General surgery evaluated the patient and felt that a debridement was necessary. Hospital medicine was consulted for admission. It sounds like the patient's decubitus pressure ulcer started a couple months ago and has been progressively worsening. The patient says he received IV chemotherapy about 2 weeks ago and recently completed oral chemotherapy. Neither the patient nor his accompanying family member know which chemotherapy the patient has received. The patient normally follows at [facility] well as [facility]. 10/27 General surgery performed a debridement of the gluteal pressure ulcer, noted necrotic tissue but no evidence of infection. Replaced potassium and phosphorus, holding lasix until potassium normalizes. Two loose bowel movements this morning per the patient. 10/28 Stable overnight, neutropenia resolved. Potassium normal today, started Lasix 40 mg IV twice daily. Started Lasix 10 units daily. Transthoracic echocardiogram show LVEF of 50 to 55% with mild hypokinesis of the anterior left ventricular wall, right ventricular systolic function was mildly reduced with a TAPSE of 1.1 cm, RV S' was 10.7 cm/s. Ongoing wound care for gluteal pressure ulcer and disposition planning. 10/29 Stable overnight, continuing Lasix IV twice daily for bilateral lower extremity pitting edema. Patient is currently awaiting placement in a shelter facility. Physical exam General: Chronically ill-appearing 75-year-old male in no apparent distress. Head: Atraumatic, normal inspection. Eyes: normal appearance, no scleral icterus. Neck: full ROM Respiratory: no respiratory distress. Cardiovascular: normal rate and rhythm, S1, S2. GI/Abdominal: soft, nontender, no guarding. Extremities: bilateral lower extremity pitting edema full range of motion, nontender. Neurological: CN II-XII intact, intact motor, intact sensation. Psychiatric: normal mood. Skin: Palmar and pedal desquamation. Constitutional Vitals: Vital Signs Temp Pulse Resp BP Pulse Ox 97.1 F 96 H 18 136/75 98 10/29/21 11:26 10/29/21 11:26 10/29/21 11:26 10/29/21 11:26 10/29/21 11:26 Period Temp Pulse Resp BP Sys/Hawkins Pulse Ox Last 24 Hr 96.5 F-97.9 F 63-96 14-18 111-136/61-75 96-99 Intake and Output 10/29/21 10/29/21 10/29/21 05:59 13:59 21:59 Intake Total 240 709 Output Total 475 260 Balance 240 234 -260 Intake & Output: Intake & Output 10/29/21 10/29/21 10/29/21 05:59 13:59 21:59 Intake Total 240 709 Output Total 475 260 Balance 240 234 -260 Intake: Nourishment/Supplement quantity 709 (ml) Oral 240 Output: Void Amount 375 260 Urine/Stool Mix 100 Other: Meal Lunch Percent of Meal Consumed 75% Feeding Ability Assist with Tray Set Up Nourishment/Supplement name Bal Urine Appearance Clear Urine Color Bright Yellow Bright Yellow Urine Odor Normal Strong Stool Size Moderate Small Small Stool Color Green Brown Brown Stool Consistency Liquid Loose Loose # Voids 1 # Unmeasured Emesis 1 2 # Bowel Movements 1 1 # of times incontinent of 1 1 Bowels OBJ DATA Labs CBC & Chem 7: 10/29/21 05:13 10/29/21 05:13 Labs: Abnormal Lab Results 10/29/21 10/29/21 10/28/21 05:13 05:13 05:28 WBC 3.5 L RBC 2.68 L Hgb 8.9 L Hct 26.8 L Plt Count 117 L Lymph % (Auto) Mcmullen % (Auto) 24.1 H Lymph # (Auto) 0.60 L Seg Neutrophils % Band Neutrophils % Monocytes % (Manual) Nucleated RBCs Platelet Estimate RBC Morphology Anisocytosis PT 18.6 H INR 1.5 H Sodium Potassium Carbon Dioxide BUN 25 H Glucose 158 H Hemoglobin A1c Uric Acid Calcium 8.4 L Phosphorus 2.2 L Direct Bilirubin 0.3 H Lactate Dehydrogenase 264 H C-Reactive Protein Total Protein 4.6 L Albumin 2.3 L Procalcitonin Urine Glucose (UA) Urine Ketones Urine WBC Urine Mucus 10/28/21 10/28/21 10/27/21 05:28 05:28 05:21 WBC RBC 2.77 L Hgb 9.0 L Hct 26.7 L Plt Count Lymph % (Auto) 9.8 L Mcmullen % (Auto) 16.2 H Lymph # (Auto) 0.45 L Seg Neutrophils % Band Neutrophils % Monocytes % (Manual) Nucleated RBCs Platelet Estimate RBC Morphology Anisocytosis PT INR Sodium 132 L Potassium 2.2 L* Carbon Dioxide 21 L BUN Glucose 210 H 140 H Hemoglobin A1c Uric Acid 2.1 L 1.9 L Calcium 8.0 L 7.8 L Phosphorus 2.2 L 1.3 L Direct Bilirubin 0.5 H 0.6 H Lactate Dehydrogenase 240 H 226 H C-Reactive Protein Total Protein 4.6 L 4.5 L Albumin 2.3 L 2.2 L Procalcitonin Urine Glucose (UA) Urine Ketones Urine WBC Urine Mucus 10/27/21 10/26/21 10/26/21 05:21 18:32 08:40 WBC 3.3 L RBC 2.57 L Hgb 8.6 L Hct 24.4 L Plt Count 119 L Lymph % (Auto) Mcmullen % (Auto) Lymph # (Auto) Seg Neutrophils % 28 L Band Neutrophils % 18 H Monocytes % (Manual) 15 H Nucleated RBCs 3 H Platelet Estimate Decreased A RBC Morphology Abnormal A Anisocytosis 2+ A PT INR Sodium Potassium Carbon Dioxide BUN Glucose Hemoglobin A1c Uric Acid Calcium Phosphorus Direct Bilirubin Lactate Dehydrogenase C-Reactive Protein Total Protein Albumin Procalcitonin 0.47 H Urine Glucose (UA) >=500 A Urine Ketones 20 A Urine WBC 5 H Urine Mucus Few A 10/26/21 08:40 WBC RBC Hgb Hct Plt Count Lymph % (Auto) Mcmullen % (Auto) Lymph # (Auto) Seg Neutrophils % Band Neutrophils % Monocytes % (Manual) Nucleated RBCs Platelet Estimate RBC Morphology Anisocytosis PT INR Sodium Potassium Carbon Dioxide BUN Glucose Hemoglobin A1c 6.9 H Uric Acid Calcium Phosphorus Direct Bilirubin Lactate Dehydrogenase C-Reactive Protein 4.70 H Total Protein Albumin Procalcitonin Urine Glucose (UA) Urine Ketones Urine WBC Urine Mucus Meds: Medications Acetaminophen (Acetaminophen 500 Mg Tablet) 500 mg PO Q4HP PRN; Protocol PRN Reason: Per Pain Protocol Last Admin: 10/27/21 03:52 Dose: 500 mg Documented by: Hydrocodone Bitart/Acetaminophen (Hydrocodone/Apap 5/325mg Tablet) 1 tab PO Q4HP PRN; Protocol PRN Reason: Per Pain Protocol Atorvastatin Calcium (Atorvastatin 40 Mg Tablet) 80 mg PO HS [facility] Last Admin: 10/28/21 21:03 Dose: 80 mg Documented by: Cholestyramine Resin (Cholestyramine/Aspartame 4 Gm Powd.Pack) 4 gm PO BID@0700,1900 [facility] Last Admin: 10/29/21 08:59 Dose: 4 gm Documented by: Dextrose (Dextrose 50% 50 Ml Vial) 0 ml IV UD PRN PRN Reason: Per Sliding Scale Diagnostic Test (Pha) (Accu-Chek 1 Each Strip) 1 each FS ACHS [facility] Last Admin: 10/29/21 12:39 Dose: 1 each Documented by: Diphenoxylate HCl/Atropine (Diphenoxylate Hcl/Atropine 1 Tablet) 2 tab PO QID [facility] Last Admin: 10/29/21 12:54 Dose: 2 tab Documented by: Enoxaparin Sodium (Enoxaparin 40 Mg/0.4 Ml Syringe) 40 mg SQ DAILY [facility] Last Admin: 10/29/21 08:03 Dose: 40 mg Documented by: Furosemide (Furosemide 40 Mg/4 Ml Vial) 40 mg IV 1800 [facility] Stop: 10/29/21 21:00 Furosemide (Furosemide 40 Mg Tablet) 40 mg PO BIDD [facility] Stop: 10/30/21 16:01 Glucose (Dextrose 31 Gm Oral.Susp) 15 gm PO PRN PRN PRN Reason: Hypoglycemia Insulin Glargine (Insulin Glargine, Human 1 Unit/0.01 Ml) 10 unit SQ DAILY [facility] Last Admin: 10/29/21 08:03 Dose: 10 unit Documented by: Insulin Human Lispro (Insulin Lispro 1 Unit/0.01 Ml Unit) 0 unit SQ ACHS [facility]; Protocol Last Admin: 10/29/21 12:51 Dose: 2 units Documented by: Nystatin (Nystatin 500,000 Units/5 Ml Oral.Susp) 500,000 units SSW QID [facility] Stop: 11/02/21 17:18 Last Admin: 10/29/21 13:29 Dose: 500,000 units Documented by: Ondansetron HCl (Ondansetron 4 Mg/2 Ml Vial) 4 mg IV Q6HP PRN PRN Reason: Nausea And Vomiting Last Admin: 10/29/21 14:57 Dose: 4 mg Documented by: Potassium Chloride (Potassium Chloride 20 Meq Tablet) 40 meq PO DAILY [facility] Stop: 11/01/21 08:59 Last Admin: 10/29/21 09:00 Dose: 40 meq Documented by: Potassium/Phosphorus/Sodium (Neutra Phos 1 Packet) 1 packet PO BID [facility] Stop: 10/29/21 21:01 Last Admin: 10/29/21 08:59 Dose: 1 packet Documented by: Senna (Sennosides 1 Tablet) 2 tab PO HS [facility] Last Admin: 10/28/21 19:32 Dose: Not Given Documented by: Sodium Chloride (0.9 % Sodium Chloride 10 Ml Syringe) 10 ml IV Q8 [facility] Last Admin: 10/29/21 13:03 Dose: 10 ml Documented by: A/P Narrative A/P Narrative: Assessment: 75 year old male with a history of diabetes mellitus, obesity, nonhealing decubitus pressure ulcer, colon cancer status post partial he micolectomy currently receiving chemotherapy who presented to the ED for feeling generally unwell. In the ED, the patient was found to be pancytopenic, likely secondary to chemotherapy, and hypokalemic. The patient was admitted for further evaluation of a gluteal pressure wound. General surgery was consulted and performed debridement of the patient's pressure wound. Neutropenia resolved, the patient feels better. The reason the patient was not feeling well on admission was probably because of recent chemotherapy. The patient is currently awaiting placement. #Gluteal pressure wounds status post debridement 10/27/2021 #Resolved pancytopenia secondary to chemotherapy #Normocytic anemia #Hypophosphatemia #Bilateral lower extremity pedal edema #Liver cirrhosis with moderate ascites #Oropharyngeal candidiasis #Possible mild colonic wall thickening per CT #Diarrhea #Diabetes mellitus #Colon cancer status post partial hemicolectomy currently on chemotherapy #Malnourishment Plan -Lasix 40 mg IV twice daily today. -Nystatin for oropharyngeal candidiasis, treat for 7 to 14 days -Correction Humalog SSImedium. -Continue home Atorvastatin and cholestyramine. 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 -Wound cares for left toe wound and gluteal pressure wound. -Offloading gluteal pressure wounds. -Consistent carbohydrate diet with nutritional supplement. -Consider wound care consult. -equine intern. -DVT prophylaxis: Lovenox -Disposition: snf facility for rehab. Referral to wound care clinic for left toe wound and gluteal pressure wound. Time Spent With Patient Time: Total time spent is greater than 50% in coordination of care (as documented) at patient's floor/unit and/or counseling patient: QUALITY VTE Deep Vein Thrombosis/Pulmonary Embolism Present on Admission: No
[2021-10-29] MEDS ORDERED: METOCLOPRAMIDE 10 MG/2 ML VIAL IV PRN (19:20)
[2021-10-29] MEDS ORDERED: METOCLOPRAMIDE 10 MG/2 ML VIAL ONE (19:35)
[2021-10-29] MEDS: ATORVASTATIN 40 MG TABLET PO SCH ×2 (21:09→21:34)
[2021-10-29] MEDS: SENNOSIDES 1 TABLET PO SCH (21:10)
[2021-10-29] MEDS ORDERED: PROMETHAZINE 25 MG/ML VIAL IV PRN (23:26)
[2021-10-29] MEDS ORDERED: PROMETHAZINE 25 MG/ML VIAL ONE (23:38)
[2021-10-30] MEDS: NEUTRA PHOS 1 PACKET PO SCH (00:24)
[2021-10-30] MEDS ORDERED: ASPIRIN 81 MG TAB.CHEW CHEWED ONE (02:47)
[2021-10-30] MEDS ORDERED: NITROGLYCERIN 0.4 MG TAB.SUBL SL PRN (02:47)
[2021-10-30 03:17] LABS: POC Calcium, Ionized 1.17 (1.16-1.32); POC Creatinine 1.5 (0.6-1.2); POC Potassium 3.6 (3.3-5.1)
[2021-10-30 03:51] LABS: Basophils # (Auto) 0 K/mcL (0.00-0.30); Basophils % (Auto) 0 % (0.0-2.0); Eosinophils # (Auto) 0 K/mcL (0.00-0.70); Eosinophils % (Auto) 0 % (0.0-7.0); Hemoglobin 12.5 g/dL (13.7-17.5); Lymphocytes % (Auto) 12.6 % (15.5-49.0); Mean Cell Volume 100.8 fL (80.0-100.0); Mean Corpuscular HGB Conc 32.9 g/dL (31.0-36.0); Mean Platelet Volume 9.5 fL (7.4-10.4); Monocytes # (Auto) 1.41 K/mcL (0.10-0.90); Monocytes % (Auto) 22.2 % (1.0-12.0); Neutrophils % (Auto) 65.2 % (38.0-78.0); Platelet Count 201 K/mcL (140-440); RBC 3.77 M/mcL (4.63-6.08); WBC 6.3 K/mcL (4.5-11.0)
[2021-10-30 03:58] LABS: Creatine Kinase MB 2.2 ng/mL (<6.7)
[2021-10-30 04:00] LABS: ALT/SGPT 13 U/L (<40); AST/SGOT 22 U/L (<40); Albumin 2.7 gm/dL (3.2-5.2); Albumin/Globulin Ratio 0.9 (1.0-2.3); Alkaline Phosphatase 109 U/L (39-117); Bilirubin,Total 0.9 mg/dL (0.1-1.0); Blood Urea Nitrogen 35 mg/dL (8-23); Calcium 9.2 mg/dL (8.6-10.4); Carbon Dioxide 24 mmol/L (22-30); Chloride 102 mmol/L (96-108); Creatine Kinase 50 U/L (24-195); Globulin 3.1 gm/dL (2.2-3.7); Glomerular Filtration Rate 45; Glucose 178 mg/dL (70-105)
[2021-10-30] MEDS: ONDANSETRON 4 MG/2 ML VIAL IV PRN (04:51)
[2021-10-30] MEDS: 0.9 % SODIUM CHLORIDE 10 ML SYRINGE IV SCH ×3 (04:51→23:18)
[2021-10-30] MEDS ORDERED: 0.9 % SODIUM CHLORIDE 500 ML IV ONE (05:05)
[2021-10-30] MEDS: CHOLESTYRAMINE/ASPARTAME 4 GM POWD.PACK PO SCH ×2 (07:59→19:20)
[2021-10-30] MEDS ORDERED: FUROSEMIDE 40 MG TABLET PO SCH (08:00)
--- NOTE | 2021-10-30 08:07 | EKG ---
[facility] Minor Care Test Date: 2021-10-26 Pat Name: Will Lyn Department: ED Room: Gender: Male Bartender: LR : 1945 Requested By: Alex Allen Order Number: [id number] Reading MD: Benito Whatley D.O. Measurements Intervals [place] Rate: 68 P: -8 HI: 181 QRS: -15 QRSD: 132 T: -27 QT: 402 QTc: 428 Interpretive Statements Significant baseline artifact limits Interpretation SINUS OR ECTOPIC ATRIAL RHYTHM Electronically Signed On 10-30-2021 8:06:57 PDT by Benito Whatley D.O. /store/M0/[id number]
--- NOTE | 2021-10-30 08:36 | XRay Report ---
HISTORY: Nausea and vomiting FINDINGS: Two supine images were obtained. There is a moderate amount of gas in both large and small intestine. Some of the loops of small bowel are abnormally dilated measuring up to 5.1 cm. The wall of the bowel does not appear abnormally thickened or inflamed. Mid transverse colon measures up to 8.7 cm in diameter. The distal large bowel is decompressed. No gross free intra-abdominal air is present. There is a large amount of gas in the stomach. Comparison with the prior CT done on 10/26/21 shows similar findings were present at that time. A couple loops of small bowel are larger today than they had been on the prior exam. IMPRESSION: Nonspecific bowel pattern. This is more likely due to ileus rather than a distal large bowel obstruction Interpreted and Authenticated by: Aldair Bedolla 10/30/21
--- NOTE | 2021-10-30 09:32 | XRay Report ---
HISTORY: Nasogastric tube insertion FINDINGS: A nasogastric tube has been inserted. The catheter forms a partial loop in the stomach with the tip in the cardia. The stomach has been partially decompressed compared with earlier exam. There still a large amount gas in both large and small intestine. Transverse colon now measures up to 10 cm in diameter. Loops of small bowel measure up to 5 cm. IMPRESSION: Well-positioned nasogastric tube Interpreted and Authenticated by: Aldair Bedolla 10/30/21
--- NOTE | 2021-10-30 10:35 | Cat Scan Report ---
History: Nausea, vomiting, dilated large and small intestine, prior partial colectomy for colon cancer TECHNIQUE: Patient was imaged without contrast in axial plane at 2.5 mm intervals from above the diaphragm through the symphysis pubis. Sagittal and coronal reformats were created. The radiation exposure was limited using dose reduction technology. FINDINGS: The lung bases are clear. There is nasogastric tube passing through the esophagus into the stomach. The catheter forms a gentle loop in the upper fundus and body. There is a large amount of fluid within the stomach. Moderate amount of fluid is present in the small intestine. There are dilated segments of the jejunum and proximal ileum which measure up to 4.5 cm in diameter. The distal ileum is collapsed. Terminal ileum is normal. The appendix is not identified. There is a large amount of fecal material in the cecum and ascending colon. The hepatic flexure is interposed between the liver and diaphragm. This is an anatomic variant which was seen on prior study CT scan. The transverse colon is partially air-filled and measures up to 6.2 cm in diameter. There is an abrupt transition in caliber to collapsed descending colon, and the splenic flexure. There is no apparent mass, ulceration or inflammation at the transition point. On the prior CT on 10/26/21 there are circumferential thickening and inflammation of the wall of the large intestine from the splenic flexure to the rectosigmoid junction. The inflammation has since resolved. There is a row of anastomotic sutures in the sigmoid colon. There is no obstruction or inflammation at this point. The liver is small but grossly homogeneous. The capsule is smooth. There is high attenuation material within the gallbladder. This could be sludge or excreted intravenous contrast from the prior CT scan area the alexis not thickened and there are no stones. Small to moderate volume of ascites is present in the abdomen and pelvis. The volume of fluid deep in the pelvis has increased but the fluid in the upper abdomen remain stable since 10/26/21. No abscess is detected. There is no free intraperitoneal air. The spleen is normal in size and homogeneous. There is atrophy of the pancreas and no evidence of acute pancreatitis. The adrenals and kidneys are normal. Scattered plaques are present along the wall of the aorta. No adenopathy is present. Urinary bladder is collapsed by Manzo catheter. Prostate is normal in size. IMPRESSION: Partial large bowel obstruction at the splenic flexure. This could be due to a stricture following the recent inflammation of the large bowel. Small /moderate volume of ascites which has increased within the pelvis since the prior exam Small liver which may be due to cirrhosis Atrophic pancreas Interpreted and Authenticated by: Aldair Bedolla 10/30/21
[2021-10-30] MEDS: INSULIN LISPRO 1 UNIT/0.01 ML UNIT SQ SCH ×4 (10:39→19:12)
[2021-10-30] MEDS: DIPHENOXYLATE HCL/ATROPINE 1 TABLET PO SCH ×4 (10:40→19:21)
[2021-10-30] MEDS: NYSTATIN 500,000 UNITS/5 ML ORAL.SUSP SSW SCH ×4 (10:40→23:19)
[2021-10-30] MEDS: POTASSIUM CHLORIDE 20 MEQ TABLET PO SCH (10:40)
[2021-10-30] MEDS: 0.9 % SODIUM CHLORIDE 1,000 ML IV SCH ×2 (10:41→18:39)
[2021-10-30] MEDS: INSULIN GLARGINE, HUMAN 1 UNIT/0.01 ML SQ SCH (10:59)
[2021-10-30] MEDS: ENOXAPARIN 40 MG/0.4 ML SYRINGE SQ SCH (10:59)
--- NOTE | 2021-10-30 11:12 | Internal Med Progress Note ---
SUBJECTIVE Subjective Patient information: Note initiated : 10/30/21 at 11:06 am Service Date, if different from initiated Date: [] Patient: Will Lyn 75 y/o M admitted on 10/26/21 for Weak. Chief Complaint: [] Principal diagnosis: Postop day 1 status post debridement of bilateral buttocks pressure wounds. Interval history: Mr. Lyn is a 75 year old male with a history of hypertension, diabetes mellitus, obesity, nonhealing decubitus pressure ulcer, colon cancer status post partial hemicolectomy currently receiving chemotherapy who presented to the ED for feeling generally unwell. The patient was supposed to go to wound care today at [facility] but decided to go to the emergency department instead. In the emergency department, the patient was felt to have an infected decubitus ulcer. The patient was started on broad-spectrum antibiotics. In the ED, the patient was noted to be pancytopenic including neutropenia with an absolute neutrophil count of 740. Chemistry panel was noted for mild hyponatremia, hy pokalemia, mild metabolic acidosis, relatively normal LFTs, albumin of 2.7. The patient was afebrile in the ED, he deniedrecent fevers. The patient had a CT abdomen and pelvis, the radiology report did not show any evidence of abscess or osteomyelitis in the sacral region of the area of the decubitus ulcer, there was cirrhosis with moderate ascites, no evidence of portal hypertension, there was moderate ileus with mild wall thickening in the colon felt to reflect edema related to cirrhosis but colitis was not excluded. The patient says that he recently experienced diarrhea and lower abdominal pain which is occurred before after receiving chemotherapy. Upon further evaluation, the patient says that he has also recently been having difficulty eating due to oral pain exacerbated by eating, bilateral lower extremity pitting edema. General surgery evaluated the patient and felt that a debridement was necessary. Hospital medicine was consulted for admission. It sounds like the patient's decubitus pressure ulcer started a couple months ago and has been progressively worsening. The patient says he received IV chemotherapy about 2 weeks ago and recently completed oral chemotherapy. Neither the patient nor his accompanying family member know which chemotherapy the patient has received. The patient normally follows at [facility] as well as [facility]. 10/27 General surgery performed a debridement of the gluteal pressure ulcer, noted necrotic tissue but no evidence of infection. Replaced potassium and phosphorus, holding lasix until potassium normalizes. Two loose bowel movements this morning per the patient. 10/28 Stable overnight, neutropenia resolved. Potassium normal today, started Lasix 40 mg IV twice daily. Started Lasix 10 units daily. Transthoracic echocardiogram show LVEF of 50 to 55% with mild hypokinesis of the anterior left ventricular wall, right ventricular systolic function was mildly reduced with a TAPSE of 1.1 cm, RV S' was 10.7 cm/s. Ongoing wound care for gluteal pressure ulcer and disposition planning. 10/29 Stable overnight, continuing Lasix IV twice daily for bilateral lower extremity pitting edema. 10/30 The patient developed nausea, vomiting, and tachycardia overnight. IV fluids started, discontinued Lasix. Morning labs show that creatinine has bumped up to 1.5. Troponin initially 0.02, trended and increased to 0.08 (high normal). The patient is not having any chest discomforts. Abdominal x-ray showed a nonspecific bowel pattern. A CT abdomen pelvis without contrast showed a partial large bowel obstruction at the splenic flexure. A nasogastric tube was placed for low intermittent suctioning. Physical exam General: Chronically ill-appearing 75-year-old male in no apparent distress. Head: Atraumatic, normal inspection. Eyes: normal appearance, no scleral icterus. Neck: full ROM Respiratory: no respiratory distress. Cardiovascular: normal rate and rhythm, S1, S2. GI/Abdominal: soft, nontender, no guarding. Extremities: bilateral lower extremity pitting edema full range of motion, no ntender. Neurological: CN II-XII intact, intact motor, intact sensation. Psychiatric: normal mood. Skin: Palmar and pedal desquamation. Constitutional Vitals: Vital Signs Temp Pulse Resp BP Pulse Ox 97.8 F 102 H 20 129/81 99 10/30/21 08:00 10/30/21 08:00 10/30/21 08:00 10/30/21 08:00 10/30/21 08:00 Period Temp Pulse Resp BP Sys/Hawkins Pulse Ox Last 24 Hr 96.9 F-97.8 F 93-122 16-20 99-136/62-96 97-100 Intake and Output 10/29/21 10/30/21 10/30/21 21:59 05:59 13:59 Intake Total 472 120 500 Output Total 1185 350 Balance -713 -230 500 Weight 79.333 kg Intake & Output: Intake & Output 10/29/21 10/30/21 10/30/21 21:59 05:59 13:59 Intake Total 472 120 500 Output Total 1185 350 Balance -713 -230 500 Weight 79.333 kg Intake: Nourishment/Supplement quantity 236 (ml) IV 500 Sodium Chloride 0.9% 500 ml @ 500 Wide Open IV BOLUS ONE Rx#: [id number] Oral 236 120 Output: Void Amount 935 Emesis 250 350 Other: Meal Dinner Percent of Meal Consumed 100% Feeding Ability Independent Nourishment/Supplement name Glucerna, Robert Urine Appearance Clear Urine Color Pale Urine Odor Normal Stool Size Small Stool Color Brown Stool Consistency Loose # Unmeasured Emesis 1 # Bowel Movements 1 OBJ DATA Labs CBC & Chem 7: 10/30/21 03:00 10/30/21 03:00 Labs: Abnormal Lab Results 10/30/21 10/30/21 10/30/21 03:01 03:00 03:00 WBC RBC 3.77 L Hgb 12.5 L Hct 38.0 L POC Hct 38.0 L MCV 100.8 H Plt Count Lymph % (Auto) 12.6 L Sully % (Auto) 22.2 H Lymph # (Auto) 0.80 L Sully # (Auto) 1.41 H PT INR POC BUN 35 H BUN 35 H Creatinine 1.5 H POC Creatinine 1.5 H Glucose 178 H POC Glucose 180 H Uric Acid Calcium Phosphorus Direct Bilirubin Lactate Dehydrogenase Total Protein 5.8 L Albumin 2.7 L Albumin/Globulin Ratio 0.9 L 10/29/21 10/29/21 10/28/21 05:13 05:13 05:28 WBC 3.5 L RBC 2.68 L Hgb 8.9 L Hct 26.8 L POC Hct MCV Plt Count 117 L Lymph % (Auto) Sully % (Auto) 24.1 H Lymph # (Auto) 0.60 L Sully # (Auto) PT 18.6 H INR 1.5 H POC BUN BUN 25 H Creatinine POC Creatinine Glucose 158 H POC Glucose Uric Acid Calcium 8.4 L Phosphorus 2.2 L Direct Bilirubin 0.3 H Lactate Dehydrogenase 264 H Total Protein 4.6 L Albumin 2.3 L Albumin/Globulin Ratio 10/28/21 10/28/21 05:28 05:28 WBC RBC 2.77 L Hgb 9.0 L Hct 26.7 L POC Hct MCV Plt Count Lymph % (Auto) 9.8 L Sully % (Auto) 16.2 H Lymph # (Auto) 0.45 L Sully # (Auto) PT INR POC BUN BUN Creatinine POC Creatinine Glucose 210 H POC Glucose Uric Acid 2.1 L Calcium 8.0 L Phosphorus 2.2 L Direct Bilirubin 0.5 H Lactate Dehydrogenase 240 H Total Protein 4.6 L Albumin 2.3 L Albumin/Globulin Ratio Meds: Medications Acetaminophen (Acetaminophen 500 Mg Tablet) 500 mg PO Q4HP PRN; Protocol PRN Reason: Per Pain Protocol Last Admin: 10/27/21 03:52 Dose: 500 mg Documented by: Hydrocodone Bitart/Acetaminophen (Hydrocodone/Apap 5/325mg Tablet) 1 tab PO Q4HP PRN; Protocol PRN Reason: Per Pain Protocol Atorvastatin Calcium (Atorvastatin 40 Mg Tablet) 80 mg PO HS [facility] Last Admin: 10/29/21 21:34 Dose: Not Given Documented by: Cholestyramine Resin (Cholestyramine/Aspartame 4 Gm Powd.Pack) 4 gm PO BID@0700,1900 [facility] Last Admin: 10/30/21 07:59 Dose: Not Given Documented by: Dextrose (Dextrose 50% 50 Ml Vial) 0 ml IV UD PRN PRN Reason: Per Sliding Scale Diagnostic Test (Pha) (Accu-Chek 1 Each Strip) 1 each FS ACHS [facility] Last Admin: 10/30/21 10:39 Dose: 1 each Documented by: Diphenoxylate HCl/Atropine (Diphenoxylate Hcl/Atropine 1 Tablet) 2 tab PO QID [facility] Last Admin: 10/30/21 10:40 Dose: Not Given Documented by: Enoxaparin Sodium (Enoxaparin 40 Mg/0.4 Ml Syringe) 40 mg SQ DAILY [facility] Last Admin: 10/30/21 10:59 Dose: 40 mg Documented by: Glucose (Dextrose 31 Gm Oral.Susp) 15 gm PO PRN PRN PRN Reason: Hypoglycemia Sodium Chloride (Sodium Chloride 0.9%) 1,000 mls @ 125 mls/hr IV .Q8H [facility] Last Admin: 10/30/21 10:41 Dose: 125 mls/hr Documented by: Insulin Glargine (Insulin Glargine, Human 1 Unit/0.01 Ml) 10 unit SQ DAILY [facility] Last Admin: 10/30/21 10:59 Dose: 10 unit Documented by: Insulin Human Lispro (Insulin Lispro 1 Unit/0.01 Ml Unit) 0 unit SQ [facility]; Protocol Last Admin: 10/30/21 10:39 Dose: Not Given Documented by: Nitroglycerin (Nitroglycerin 0.4 Mg Tab.Subl) 0.4 mg SL Q5M PRN PRN Reason: Chest Pain Nystatin (Nystatin 500,000 Units/5 Ml Oral.Susp) 500,000 units SSW QID [facility] Stop: 11/02/21 17:18 Last Admin: 10/30/21 10:40 Dose: Not Given Documented by: Ondansetron HCl (Ondansetron 4 Mg/2 Ml Vial) 4 mg IV Q6HP PRN PRN Reason: Nausea And Vomiting Last Admin: 10/30/21 04:51 Dose: 4 mg Documented by: Potassium Chloride (Potassium Chloride 20 Meq Tablet) 40 meq PO DAILY [facility] Stop: 11/01/21 08:59 Last Admin: 10/30/21 10:40 Dose: Not Given Documented by: Promethazine HCl (Promethazine 25 Mg/Ml Vial) 12.5 mg IV Q4HP PRN PRN Reason: Nausea And Vomiting Last Admin: 10/29/21 23:34 Dose: 12.5 mg Documented by: Senna (Sennosides 1 Tablet) 2 tab PO HS [facility] Last Admin: 10/29/21 21:10 Dose: Not Given Documented by: Sodium Chloride (0.9 % Sodium Chloride 10 Ml Syringe) 10 ml IV Q8 [facility] Last Admin: 10/30/21 04:51 Dose: 10 ml Documented by: A/P Narrative A/P Narrative: Assessment: 75 year old male with a history of diabetes mellitus, obesity, nonhealing decubitus pressure ulcer, colon cancer status post partial hemicolectomy currently receiving chemotherapy who presented to the ED for feeling generally unwell. In the ED, the patient was found to be pancytopenic, likely secondary to chemotherapy, and hypokalemic. The patient was admitted for further evaluation of a gluteal pressure wound. General surgery was consulted and performed debridement of the patient's pressure wound. Neutropenia resolved, the patient felt better however developed nausea, vomiting and tachycardic on the night of 10/30/2021. Work-up with a noncontrast CT abdomen pelvis due to MAYNOR showed a partial large bowel obstruction at the splenic flexure. #Partial large bowel obstruction at the splenic flexure #Acute kidney injury, likely prerenal due to vomiting and bowel obstruction #Intractable nausea and vomiting due to bowel obstruction #Gluteal pressure wounds status post debridement 10/27/2021 #Resolved pancytopenia secondary to chemotherapy #Normocytic anemia #Hypophosphatemia #Bilateral lower extremity pedal edema #Probable liver cirrhosis #Small/moderate ascites #Oropharyngeal candidiasis #Possible mild colonic wall thickening per CT #Diarrhea #Diabetes mellitus #Colon cancer status post partial hemicolectomy currently on chemotherapy #Malnourishment Plan -General surgery consulted for partial large bowel obstruction. -IV fluid, monitor renal function and urine output. -NG for low intermittent suctioning. -Nystatin for oropharyngeal candidiasis, treat for 7 to 14 days -Correction Humalog SSImedium. -Continue home Atorvastatin and cholestyramine. -Wound cares for left toe wound and gluteal pressure wound. -Offloading gluteal pressure wounds. -N.p.o. except meds. 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 -air sampling and monitoring. -DVT prophylaxis: Lovenox -Disposition: [facility] facility for rehab. Referral to wound care clinic for left toe wound and gluteal pressure wound. Time Spent With Patient Time: Total time spent is greater than 50% in coordination of care (as documented) at patient's floor/unit and/or counseling patient: QUALITY VTE Deep Vein Thrombosis/Pulmonary Embolism Present on Admission: No
--- NOTE | 2021-10-30 12:52 | EKG ---
[facility] Test Date: 2021-10-30 Pat Name: Will Lyn [facility] Room: 128 Gender: Male Business Advisor: : 1945 Requested By: Griffin Anaya Order Number: [id number] Reading MD: Brian Murphy Measurements Intervals [place] Rate: 105 P: 50 SD: 138 QRS: 52 QRSD: 108 T: 134 QT: 362 QTc: 479 Interpretive Statements Sinus tachycardia Posterior infarct, acute (LCx) Electronically Signed On 10-30-2021 12:52:34 PDT by Brian Murphy /store/[email or web address]/[id number]/[id number]
--- NOTE | 2021-10-30 12:52 | EKG ---
[facility] Test Date: 2021-10-30 Pat Name: Will Lyn Department: [facility] Room: 128 Gender: Male Regional Manager: : 1945 Requested By: Griffin Anaya Order Number: [id number] Reading MD: Brian Murphy Measurements Intervals [place] Rate: 118 P: 10 [place]: 140 QRS: 24 QRSD: 98 T: 205 QT: 276 QTc: 387 Interpretive Statements Sinus tachycardia Posterior infarct, acute (LCx) Baseline wander in lead(s) I Electronically Signed On 10-30-2021 12:52:31 PDT by Brian Murphy /store/M0/[id number]/[email or web address]/[id number]
--- NOTE | 2021-10-30 12:53 | EKG ---
[facility] Test Date: 2021-10-30 Pat Name: Will Lyn Department: [facility] Room: 128 Gender: Male Grappler: : 1945 Requested By: Griffin Anaya Order Number: [id number] Reading MD: Brian Murphy Measurements Intervals [place] Rate: 111 P: 31 [place]: 132 QRS: 40 QRSD: 102 T: 103 QT: 320 QTc: 435 Interpretive Statements Sinus tachycardia Possible prior posterior Infarct vs RBBB Electronically Signed On 10-30-2021 12:53:44 PDT by Brian Murphy /store/M0/[id number]/[email or web address]/[id number]
--- NOTE | 2021-10-30 13:56 | EKG ---
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 Measurements Intervals [place] Rate: P: CA: QRS: QRSD: T: QT: QTc: Interpretive Statements Sinus tachycardia Right bundle branch block Baseline artifact Electronically Signed On 10-30-2021 13:56:17 PDT by Benito Whatley D.O. /store/M0/[id number]/[email or web address]/[id number]
--- NOTE | 2021-10-30 16:18 | General Surgery Progress Note ---
SUBJECTIVE Subjective Patient information: Note initiated : 10/30/21 at 4:15 pm Service Date, if different from initiated Date: [] Patient: Will Lyn 75 y/o M admitted on 10/26/21 for Weak. Chief Complaint: [] Principal diagnosis: Bowel obstruction Interval history: This is a 75-year-old gentleman status post colectomy for colon cancer, status post IV chemotherapy. His colon resection was done elsewhere and he was ad mitted here several days ago with overall feeling unwell and question of a infected sacral decubitus. Patient was taken to the operating room, his buttocks wound were debrided, there was no evidence of a sacral decub they were gluteal pressure wounds which only extended through the skin. Yesterday patient started having abdominal distention, nausea and emesis. Work-up with plain films and abdominal CT is significant for what appears to be a large bowel obstruction somewhere around his previous anastomosis. I was asked to see the patient to further evaluate him today for large bowel obstruction. Constitutional Vitals: Vital Signs Temp Pulse Resp BP Pulse Ox 97.8 F 90 24 H 106/64 99 10/30/21 15:01 10/30/21 16:07 10/30/21 14:48 10/30/21 16:07 10/30/21 16:07 Period Temp Pulse Resp BP Sys/Hawkins Pulse Ox Last 24 Hr 96.9 F-98.3 F 83-122 16-24 99-148/62-120 97-100 Intake and Output 10/30/21 10/30/21 10/30/21 05:59 13:59 21:59 Intake Total 120 500 Output Total 350 1600 125 Balance -230 -1100 -125 Weight 174 lb 14.4 oz Patient Weight 10/31/21 05:59 Weight 174 lb 14.4 oz Intake & Output: Intake & Output 10/30/21 10/30/21 10/30/21 05:59 13:59 21:59 Intake Total 120 500 Output Total 350 1600 125 Balance -230 -1100 -125 Weight 174 lb 14.4 oz Intake: IV 500 Sodium Chloride 0.9% 500 ml @ 500 Wide Open IV BOLUS ONE Rx#: [id number] Oral 120 Output: Gastric Drainage 1400 NG/OG 1400 Urine Catheter Amount 200 125 Uretheral (Manzo) 200 Emesis 350 Other: Urine Appearance Clear Uretheral (Manzo) Clear Clear Urine Color Dark Yellow Uretheral (Manzo) Bright Yellow Bright Yellow Urine Odor Normal # Emeses 4 General appearance: cooperative and mild distress GI/Abdominal GI/Abdominal exam: Present soft and distended; Absent rebound or rigid A/P Assessment and plan (1) Status post colectomy: Status: Inactive Plan Patient was admitted for questionable infected sacral decubitus ulcer, this has been ruled out. He is now having complaints of what appears to be a partial large bowel obstruction. Recommend n.p.o., NG tube. Would transfer back to facility who performed his colon cancer resection and has been following him postop. Time Spent With Patient Time: Total time spent is greater than 50% in coordination of care (as documented) at patient's floor/unit and/or counseling patient:
[2021-10-30] MEDS: SENNOSIDES 1 TABLET PO SCH (19:20)
[2021-10-30] MEDS: ATORVASTATIN 40 MG TABLET PO SCH (19:21)
[2021-10-31] MEDS: 0.9 % SODIUM CHLORIDE 1,000 ML IV SCH ×3 (02:50→21:29)
[2021-10-31] MEDS: DIPHENOXYLATE HCL/ATROPINE 1 TABLET PO SCH ×3 (07:07→17:27)
[2021-10-31] MEDS: CHOLESTYRAMINE/ASPARTAME 4 GM POWD.PACK PO SCH ×2 (07:07→21:30)
[2021-10-31] MEDS: POTASSIUM CHLORIDE 20 MEQ TABLET PO SCH (07:07)
[2021-10-31] MEDS: 0.9 % SODIUM CHLORIDE 10 ML SYRINGE IV SCH ×3 (08:01→21:33)
[2021-10-31] MEDS: INSULIN LISPRO 1 UNIT/0.01 ML UNIT SQ SCH ×4 (08:01→21:31)
--- NOTE | 2021-10-31 08:40 | General Surgery Progress Note ---
SUBJECTIVE Subjective Patient information: Note initiated : 10/31/21 at 8:39 am Service Date, if different from initiated Date: [] Patient: Will Lyn 75 y/o M admitted on 10/26/21 for Weak. Chief Complaint: [] Principal diagnosis: Bowel obstruction Interval history: Patient without complaints this morning. 1.5 L out of NG tube. Patient reports flatus but no bowel movements. Constitutional Vitals: Vital Signs Temp Pulse Resp BP Pulse Ox 98.5 F 83 24 H 114/74 93 10/31/21 08:01 10/30/21 20:01 10/30/21 14:48 10/31/21 08:01 10/31/21 08:01 Period Temp Pulse Resp BP Sys/Hawkins Pulse Ox Last 24 Hr 97.2 F-98.5 F 76-97 24 97-148/52-120 93-100 Intake and Output 10/30/21 10/31/21 10/31/21 21:59 05:59 13:59 Intake Total 996 1000 Output Total 325 200 Balance 671 800 Weight 177 lb 4.8 oz Intake & Output: Intake & Output 10/30/21 10/31/21 10/31/21 21:59 05:59 13:59 Intake Total 996 1000 Output Total 325 200 Balance 671 800 Weight 177 lb 4.8 oz Intake: IV 996 1000 Sodium Chloride 0.9% 1,000 ml @ 996 1000 125 mls/hr IV .Q8H [facility] Rx#: [id number] Output: Gastric Drainage 200 50 NG/OG 200 50 Urine Catheter Amount 125 150 Other: Urine Appearance Clear Clear Uretheral (Manzo) Clear Urine Color Dark Yellow Dark Yellow Uretheral (Manzo) Bright Yellow Urine Odor Normal General appearance: cooperative and no acute distress GI/Abdominal GI/Abdominal exam: Present soft; Absent distended, rebound or tenderness A/P Assessment and plan (1) Status post colectomy: Plan: Possible large bowel obstruction status post colectomy for colon cancer and chemotherapy. Patient feels much better today. Gastrografin enema to evaluate for large bowel obstruction. Status: Inactive Time Spent With Patient Time: Total time spent is greater than 50% in coordination of care (as documented) at patient's floor/unit and/or counseling patient:
[2021-10-31] MEDS: INSULIN GLARGINE, HUMAN 1 UNIT/0.01 ML SQ SCH (09:13)
[2021-10-31] MEDS: NYSTATIN 500,000 UNITS/5 ML ORAL.SUSP SSW SCH ×2 (10:34→12:29)
[2021-10-31] MEDS: ENOXAPARIN 40 MG/0.4 ML SYRINGE SQ SCH (11:16)
--- NOTE | 2021-10-31 11:31 | XRay Report ---
HISTORY: Partial large bowel obstruction at the splenic flexure seen on abdomen CT performed on 10/30/21 FINDINGS: The harness worker film of the abdomen shows a moderate amount gas in the transverse colon. Descending and sigmoid colon are small in caliber but contains some air. The stomach is decompressed by an NG tube. The large intestine was filled in a retrograde fashion using dilute Gastrografin contrast. The contrast flowed freely throughout the colon from the rectum to the cecum without obstruction. The splenic flexure is normal and there is no transition point at this level. What appeared to be a transition point yesterday was probably muscle spasm. There is a small to moderate amount stool in the colon. No fixed intraluminal defect is identified. There is no reflux into the terminal ileum or appendix. No diverticula or inflammatory bowel disease are present. 50 seconds of fluoroscopy time was used. IMPRESSION: Normal exam without evidence of bowel obstruction or perforation Interpreted and Authenticated by: Aldair Bedolla 10/31/21
[2021-10-31 13:14] LABS: Eosinophils # (Auto) 0 K/mcL (0.00-0.70); Eosinophils % (Auto) 0 % (0.0-7.0); Hematocrit 30.2 % (40.1-51.0); Hemoglobin 10.1 g/dL (13.7-17.5); Lymphocytes # (Auto) 0.72 K/mcL (1.50-4.80); Mean Corpuscular HGB Conc 33.4 g/dL (31.0-36.0); Mean Platelet Volume 9.4 fL (7.4-10.4); Monocytes # (Auto) 0.96 K/mcL (0.10-0.90); Platelet Count 128 K/mcL (140-440); RBC 2.96 M/mcL (4.63-6.08); WBC 7.7 K/mcL (4.5-11.0)
[2021-10-31 13:38] LABS: ALT/SGPT 13 U/L (<40); AST/SGOT 26 U/L (<40); Albumin 2.1 gm/dL (3.2-5.2); Albumin/Globulin Ratio 0.8 (1.0-2.3); Alkaline Phosphatase 95 U/L (39-117); Bilirubin,Total 0.8 mg/dL (0.1-1.0); Blood Urea Nitrogen 44 mg/dL (8-23); Calcium 8.8 mg/dL (8.6-10.4); Carbon Dioxide 23 mmol/L (22-30); Chloride 107 mmol/L (96-108); Globulin 2.8 gm/dL (2.2-3.7); Glomerular Filtration Rate 38; Glucose 154 mg/dL (70-105)
--- NOTE | 2021-10-31 14:19 | Internal Med Progress Note ---
SUBJECTIVE Subjective Patient information: Note initiated : 10/31/21 at 2:16 pm Service Date, if different from initiated Date: [] Patient: Will Lyn 75 y/o M admitted on 10/26/21 for Weak. Chief Complaint: [Abdominal pain] Principal diagnosis: Bowel obstruction Interval history: There is initially 1400 cc output from the NG tube during initial placement. CT was concerning for colonic mass and the patient was scheduled for Gastrografin enema today per general surgery. Pertinent ROS: The patient's abdominal pain has improved. Constitutional Vitals: Vital Signs Temp Pulse Resp BP Pulse Ox 97.6 F 83 24 H 136/64 100 10/31/21 12:17 10/30/21 20:01 10/30/21 14:48 10/31/21 12:17 10/31/21 12:17 Period Temp Pulse Resp BP Sys/Hawkins Pulse Ox Last 24 Hr 97.2 F-98.5 F 76-95 24 97-136/52-87 91-100 Intake and Output 10/31/21 10/31/21 10/31/21 05:59 13:59 21:59 Intake Total 1000 1000 Output Total 200 Balance 800 1000 Intake & Output: Intake & Output 10/31/21 10/31/21 10/31/21 05:59 13:59 21:59 Intake Total 1000 1000 Output Total 200 Balance 800 1000 Intake: IV 1000 1000 Sodium Chloride 0.9% 1,000 ml @ 1000 1000 125 mls/hr IV .Q8H [facility] Rx#: [id number] Output: Gastric Drainage 50 NG/OG 50 Urine Catheter Amount 150 Other: Urine Appearance Clear Urine Color Dark Yellow Stool Size Moderate Stool Color Brown Stool Consistency Liquid Loose # Bowel Movements 1 # of times incontinent of 1 Bowels Head Head exam: Present atraumatic and normal inspection Eye Eye exam: Present normal appearance ENT ENT exam: Present mucous membranes moist, normal exam and normal external ear exam Neck Neck exam: Present normal inspection Respiratory Respiratory exam: Present normal respiratory exam Cardiovascular Cardiovascular exam: Present normal rate and rhythm GI/Abdominal GI/Abdominal exam: Present soft, distended and tenderness; Absent normal bowel sounds or guarding Back Exam Back exam: Present normal inspection Neurological Exam Neurological exam: Present alert and oriented X3 Skin Skin exam: Present intact and warm OBJ DATA Labs CBC & Chem 7: 10/31/21 12:32 10/31/21 12:32 Labs: Abnormal Lab Results 10/31/21 10/31/21 10/30/21 12:32 12:32 11:34 WBC RBC 2.96 L Hgb 10.1 L Hct 30.2 L POC Hct MCV 102.0 H MCH 34.1 H Plt Count 128 L Lymph % (Auto) 9.4 L [place] % (Auto) 12.5 H Lymph # (Auto) 0.72 L [place] # (Auto) 0.96 H VBG Lactic Acid POC BUN BUN 44 H Creatinine 1.7 H POC Creatinine Glucose 154 H POC Glucose Calcium Phosphorus Direct Bilirubin Lactate Dehydrogenase Total Protein 4.9 L Albumin 2.1 L Albumin/Globulin Ratio 0.8 L POC Troponin I 0.09 H 10/30/21 10/30/21 10/30/21 11:31 03:01 03:00 WBC RBC Hgb Hct POC Hct 38.0 L MCV MCH Plt Count Lymph % (Auto) [place] % (Auto) Lymph # (Auto) [place] # (Auto) VBG Lactic Acid 2.4 H POC BUN 35 H BUN 35 H Creatinine 1.5 H POC Creatinine 1.5 H Glucose 178 H POC Glucose 180 H Calcium Phosphorus Direct Bilirubin Lactate Dehydrogenase Total Protein 5.8 L Albumin 2.7 L Albumin/Globulin Ratio 0.9 L POC Troponin I 10/30/21 10/29/21 10/29/21 03:00 05:13 05:13 WBC 3.5 L RBC 3.77 L 2.68 L Hgb 12.5 L 8.9 L Hct 38.0 L 26.8 L POC Hct MCV 100.8 H MCH Plt Count 117 L Lymph % (Auto) 12.6 L [place] % (Auto) 22.2 H 24.1 H Lymph # (Auto) 0.80 L 0.60 L [place] # (Auto) 1.41 H VBG Lactic Acid POC BUN BUN 25 H Creatinine POC Creatinine Glucose 158 H POC Glucose Calcium 8.4 L Phosphorus 2.2 L Direct Bilirubin 0.3 H Lactate Dehydrogenase 264 H Total Protein 4.6 L Albumin 2.3 L Albumin/Globulin Ratio POC Troponin I Meds: Medications Acetaminophen (Acetaminophen 500 Mg Tablet) 500 mg PO Q4HP PRN; Protocol PRN Reason: Per Pain Protocol Last Admin: 10/27/21 03:52 Dose: 500 mg Documented by: Hydrocodone Bitart/Acetaminophen (Hydrocodone/Apap 5/325mg Tablet) 1 tab PO Q4HP PRN; Protocol PRN Reason: Per Pain Protocol Atorvastatin Calcium (Atorvastatin 40 Mg Tablet) 80 mg PO HS [facility] Last Admin: 10/30/21 19:21 Dose: Not Given Documented by: Cholestyramine Resin (Cholestyramine/Aspartame 4 Gm Powd.Pack) 4 gm PO BID@0700,1900 [facility] Last Admin: 10/31/21 07:07 Dose: Not Given Documented by: Dextrose (Dextrose 50% 50 Ml Vial) 0 ml IV UD PRN PRN Reason: Per Sliding Scale Diagnostic Test (Pha) (Accu-Chek 1 Each Strip) 1 each FS ACHS [facility] Last Admin: 10/31/21 12:27 Dose: 1 each Documented by: Diphenoxylate HCl/Atropine (Diphenoxylate Hcl/Atropine 1 Tablet) 2 tab PO QID [facility] Last Admin: 10/31/21 11:19 Dose: Not Given Documented by: Enoxaparin Sodium (Enoxaparin 40 Mg/0.4 Ml Syringe) 40 mg SQ DAILY [facility] Last Admin: 10/31/21 11:16 Dose: 40 mg Documented by: Glucose (Dextrose 31 Gm Oral.Susp) 15 gm PO PRN PRN PRN Reason: Hypoglycemia Sodium Chloride (Sodium Chloride 0.9%) 1,000 mls @ 125 mls/hr IV .Q8H [facility] Last Admin: 10/31/21 10:00 Dose: 125 mls/hr Documented by: Insulin Glargine (Insulin Glargine, Human 1 Unit/0.01 Ml) 10 unit SQ DAILY [facility] Last Admin: 10/31/21 09:13 Dose: Not Given Documented by: Insulin Human Lispro (Insulin Lispro 1 Unit/0.01 Ml Unit) 0 unit SQ [facility]; Protocol Last Admin: 10/31/21 12:27 Dose: 2 units Documented by: Nitroglycerin (Nitroglycerin 0.4 Mg Tab.Subl) 0.4 mg SL Q5M PRN PRN Reason: Chest Pain Nystatin (Nystatin 500,000 Units/5 Ml Oral.Susp) 500,000 units SSW QID [facility] Stop: 11/02/21 17:18 Last Admin: 10/31/21 12:29 Dose: Not Given Documented by: Ondansetron HCl (Ondansetron 4 Mg/2 Ml Vial) 4 mg IV Q6HP PRN PRN Reason: Nausea And Vomiting Last Admin: 10/30/21 04:51 Dose: 4 mg Documented by: Potassium Chloride (Potassium Chloride 20 Meq Tablet) 40 meq PO DAILY [facility] Stop: 11/01/21 08:59 Last Admin: 10/31/21 07:07 Dose: Not Given Documented by: Promethazine HCl (Promethazine 25 Mg/Ml Vial) 12.5 mg IV Q4HP PRN PRN Reason: Nausea And Vomiting Last Admin: 10/29/21 23:34 Dose: 12.5 mg Documented by: Senna (Sennosides 1 Tablet) 2 tab PO HS [facility] Last Admin: 10/30/21 19:20 Dose: Not Given Documented by: Sodium Chloride (0.9 % Sodium Chloride 10 Ml Syringe) 10 ml IV Q8 [facility] Last Admin: 10/31/21 13:53 Dose: 10 ml Documented by: A/P Narrative A/P Narrative: Assessment: 75 year old male with a history of diabetes mellitus, obesity, nonhealing decubitus pressure ulcer, colon cancer status post partial hemicolectomy currently receiving chemotherapy who presented to the ED for feeling generally unwell. In the ED, the patient was found to be pancytopenic, likely secondary to chemotherapy, and hypokalemic. The patient was admitted for further evaluation of a gluteal pressure wound. General surgery was consulted and performed debridement of the patient's pressure wound. Neutropenia resolved, the patient felt better however developed nausea, vomiting and tachycardic on the night of 10/30/2021. Work-up with a noncontrast CT abdomen pelvis due to MAYNOR showed a partial large bowel obstruction at the splenic flexure. #Partial large bowel obstruction at the splenic flexure #Acute kidney injury, likely prerenal due to vomiting and bowel obstruction #Intractable nausea and vomiting due to bowel obstruction #Gluteal pressure wounds status post debridement 10/27/2021 #Resolved pancytopenia secondary to chemotherapy #Normocytic anemia #Hypophosphatemia #Bilateral lower extremity pedal edema #Probable liver cirrhosis #Small/moderate ascites #Oropharyngeal candidiasis #Possible mild colonic wall thickening per CT #Diarrhea #Diabetes mellitus #Colon cancer status post partial hemicolectomy currently on chemotherapy #Malnourishment Plan -General surgery consulted for partial large bowel obstruction.->Barium study confirmed ileus, no evidence of mass. Transfer to outside facility cancelled. -IV fluid, monitor renal function and urine output. -NG for low intermittent suctioning. -Nystatin for oropharyngeal candidiasis, treat for 7 to 14 days -Correction Humalog SSImedium. -Continue home Atorvastatin and cholestyramine. -Wound cares for left toe wound and gluteal pressure wound. -Offloading gluteal pressure wounds. -N.p.o. except meds. 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 -case monitor. -DVT prophylaxis: Lovenox -Disposition: halfway facility for rehab. Referral to wound care clinic for left toe wound and gluteal pressure wound. Time Spent With Patient Time: Total time spent is greater than 50% in coordination of care (as documented) at patient's floor/unit and/or counseling patient: Total time spent with greater than 50% in coordination of care (as documented) at patient's floor/unit and/or counseling patient:: 35 - 50 minutes QUALITY VTE Deep Vein Thrombosis/Pulmonary Embolism Present on Admission: No
[2021-10-31 17:50] LABS: Basophils # (Auto) 0.05 K/mcL (0.00-0.30); Basophils % (Auto) 0 % (0.0-2.0); Lymphocytes % (Auto) 0 % (15.5-49.0); Monocytes % (Auto) 0 % (1.0-12.0); Neutrophils % (Auto) 0 % (38.0-78.0)
[2021-10-31] MEDS: SENNOSIDES 1 TABLET PO SCH (21:33)
[2021-11-01] MEDS: NYSTATIN 500,000 UNITS/5 ML ORAL.SUSP SSW SCH ×6 (00:12→20:33)
[2021-11-01] MEDS: DIPHENOXYLATE HCL/ATROPINE 1 TABLET PO SCH ×5 (00:13→20:34)
[2021-11-01] MEDS: ATORVASTATIN 40 MG TABLET PO SCH ×2 (00:31→20:34)
[2021-11-01] MEDS: 0.9 % SODIUM CHLORIDE 1,000 ML IV SCH ×5 (03:04→17:06)
[2021-11-01] MEDS: 0.9 % SODIUM CHLORIDE 10 ML SYRINGE IV SCH ×3 (05:16→20:35)
[2021-11-01] MEDS: CHOLESTYRAMINE/ASPARTAME 4 GM POWD.PACK PO SCH ×2 (07:02→20:53)
[2021-11-01] MEDS: INSULIN LISPRO 1 UNIT/0.01 ML UNIT SQ SCH ×4 (08:27→20:52)
[2021-11-01] MEDS: INSULIN GLARGINE, HUMAN 1 UNIT/0.01 ML SQ SCH (08:29)
[2021-11-01] MEDS: ENOXAPARIN 40 MG/0.4 ML SYRINGE SQ SCH (10:05)
--- NOTE | 2021-11-01 10:40 | Internal Med Progress Note ---
SUBJECTIVE Subjective Patient information: Note initiated : 11/01/21 at 10:37 am Service Date, if different from initiated Date: [as above] Patient: Will Lyn 75 y/o M admitted on 10/26/21 for Weak. Chief Complaint: [N/V] Principal diagnosis: Bowel obstruction Interval history: The patient passed flatus and did have loose bowel movements. His barium enema was reassuring. Discussed the case with general surgery attending yesterday evening. He will be clamped today and likely his NG tube removed. He is doing well overall. His brother is at [facility] who is his primary caregiver and the patient will likely need to go there as well. Constitutional Vitals: Vital Signs Temp Pulse Resp BP Pulse Ox 97 F 70 17 112/52 98 11/01/21 08:01 10/31/21 14:00 11/01/21 08:01 11/01/21 10:01 11/01/21 08:09 Period Temp Pulse Resp BP Sys/Hawkins Pulse Ox Last 24 Hr 97 F-98.6 F 70 17-19 98-144/51-74 91-100 Intake and Output 10/31/21 11/01/21 11/01/21 21:59 05:59 13:59 Intake Total 1000 1000 0 Output Total 175 516 150 Balance 825 484 -150 Weight 80.541 kg Intake & Output: Intake & Output 10/31/21 11/01/21 11/01/21 21:59 05:59 13:59 Intake Total 1000 1000 0 Output Total 175 516 150 Balance 825 484 -150 Weight 80.541 kg Intake: IV 1000 1000 Sodium Chloride 0.9% 1,000 ml @ 1000 1000 125 mls/hr IV .Q8H [facility] Rx#: [id number] Tube Feeding 0 0 Output: Gastric Drainage 250 150 NG/OG 250 150 Urine Catheter Amount 175 265 Stool 1 Other: Urine Appearance Clear Clear Urine Color Dark Yellow Straw Uretheral (Manzo) Straw Urine Odor Normal Stool Size Moderate Large Small Stool Color Brown Brown Brown Yellow Green Stool Consistency Liquid Liquid Liquid Watery Watery # Bowel Movements 1 1 # of times incontinent of 1 1 1 Bowels Head Head exam: Present atraumatic and normal inspection Eye Eye exam: Present normal appearance ENT ENT exam: Present mucous membranes moist, normal exam and normal external ear exam Neck Neck exam: Present normal inspection Respiratory Respiratory exam: Present normal respiratory exam Cardiovascular Cardiovascular exam: Present normal rate and rhythm GI/Abdominal GI/Abdominal exam: Present soft and diminished bowel sounds; Absent distended or tenderness Back Exam Back exam: Present normal inspection Neurological Exam Neurological exam: Present alert and oriented X3 Skin Skin exam: Present intact and warm OBJ DATA Labs CBC & Chem 7: 10/31/21 12:32 10/31/21 12:32 Labs: Abnormal Lab Results 10/31/21 10/31/21 10/30/21 12:32 12:32 11:34 RBC 2.96 L Hgb 10.1 L Hct 30.2 L POC Hct MCV 102.0 H MCH 34.1 H Plt Count 128 L Neut % (Auto) 0 L Lymph % (Auto) 0 L [place] % (Auto) 0 L Lymph # (Auto) 0.72 L [place] # (Auto) 0.96 H VBG Lactic Acid POC BUN BUN 44 H Creatinine 1.7 H POC Creatinine Glucose 154 H POC Glucose Total Protein 4.9 L Albumin 2.1 L Albumin/Globulin Ratio 0.8 L POC Troponin I 0.09 H 10/30/21 10/30/21 10/30/21 11:31 03:01 03:00 RBC Hgb Hct POC Hct 38.0 L MCV MCH Plt Count Neut % (Auto) Lymph % (Auto) [place] % (Auto) Lymph # (Auto) [place] # (Auto) VBG Lactic Acid 2.4 H POC BUN 35 H BUN 35 H Creatinine 1.5 H POC Creatinine 1.5 H Glucose 178 H POC Glucose 180 H Total Protein 5.8 L Albumin 2.7 L Albumin/Globulin Ratio 0.9 L POC Troponin I 10/30/21 10/29/21 03:00 05:13 RBC 3.77 L 2.68 L Hgb 12.5 L Hct 38.0 L POC Hct MCV 100.8 H MCH Plt Count Neut % (Auto) Lymph % (Auto) 12.6 L [place] % (Auto) 22.2 H Lymph # (Auto) 0.80 L [place] # (Auto) 1.41 H VBG Lactic Acid POC BUN BUN Creatinine POC Creatinine Glucose POC Glucose Total Protein Albumin Albumin/Globulin Ratio POC Troponin I Meds: Medications Acetaminophen (Acetaminophen 500 Mg Tablet) 500 mg PO Q4HP PRN; Protocol PRN Reason: Per Pain Protocol Last Admin: 10/27/21 03:52 Dose: 500 mg Documented by: Hydrocodone Bitart/Acetaminophen (Hydrocodone/Apap 5/325mg Tablet) 1 tab PO Q4HP PRN; Protocol PRN Reason: Per Pain Protocol Atorvastatin Calcium (Atorvastatin 40 Mg Tablet) 80 mg PO HS [facility] Last Admin: 11/01/21 00:31 Dose: Not Given Documented by: Cholestyramine Resin (Cholestyramine/Aspartame 4 Gm Powd.Pack) 4 gm PO BID@07 00,1900 [facility] Last Admin: 11/01/21 07:02 Dose: Not Given Documented by: Dextrose (Dextrose 50% 50 Ml Vial) 0 ml IV UD PRN PRN Reason: Per Sliding Scale Diagnostic Test (Pha) (Accu-Chek 1 Each Strip) 1 each FS [facility] Last Admin: 11/01/21 08:27 Dose: 1 each Documented by: Diphenoxylate HCl/Atropine (Diphenoxylate Hcl/Atropine 1 Tablet) 2 tab PO QID [facility] Last Admin: 11/01/21 00:13 Dose: Not Given Documented by: Enoxaparin Sodium (Enoxaparin 40 Mg/0.4 Ml Syringe) 40 mg SQ DAILY [facility] Last Admin: 11/01/21 10:05 Dose: 40 mg Documented by: Glucose (Dextrose 31 Gm Oral.Susp) 15 gm PO PRN PRN PRN Reason: Hypoglycemia Sodium Chloride (Sodium Chloride 0.9%) 1,000 mls @ 125 mls/hr IV .Q8H [facility] Last Admin: 11/01/21 10:15 Dose: Not Given Documented by: Insulin Glargine (Insulin Glargine, Human 1 Unit/0.01 Ml) 10 unit SQ DAILY [facility] Last Admin: 11/01/21 08:29 Dose: Not Given Documented by: Insulin Human Lispro (Insulin Lispro 1 Unit/0.01 Ml Unit) 0 unit SQ [facility]; Protocol Last Admin: 11/01/21 08:27 Dose: Not Given Documented by: Nitroglycerin (Nitroglycerin 0.4 Mg Tab.Subl) 0.4 mg SL Q5M PRN PRN Reason: Chest Pain Nystatin (Nystatin 500,000 Units/5 Ml Oral.Susp) 500,000 units SSW QID [facility] Stop: 11/02/21 17:18 Last Admin: 11/01/21 10:05 Dose: 500,000 units Documented by: Ondansetron HCl (Ondansetron 4 Mg/2 Ml Vial) 4 mg IV Q6HP PRN PRN Reason: Nausea And Vomiting Last Admin: 10/30/21 04:51 Dose: 4 mg Documented by: Promethazine HCl (Promethazine 25 Mg/Ml Vial) 12.5 mg IV Q4HP PRN PRN Reason: Nausea And Vomiting Last Admin: 10/29/21 23:34 Dose: 12.5 mg Documented by: Senna (Sennosides 1 Tablet) 2 tab PO HS [facility] Last Admin: 10/31/21 21:33 Dose: Not Given Documented by: Sodium Chloride (0.9 % Sodium Chloride 10 Ml Syringe) 10 ml IV Q8 [facility] Last Admin: 11/01/21 05:16 Dose: Not Given Documented by: A/P Narrative A/P Narrative: Assessment: 75 year old male with a history of diabetes mellitus, obesity, nonhealing decubitus pressure ulcer, colon cancer status post partial hemicolectomy currently receiving chemotherapy who presented to the ED for feeling generally unwell. In the ED, the patient was found to be pancytopenic, likely secondary to chemotherapy, and hypokalemic. The patient was admitted for further evaluation of a gluteal pressure wound. General surgery was consulted and performed debridement of the patient's pressure wound. Neutropenia resolved, the patient felt better however developed nausea, vomiting and tachycardic on the night of 10/30/2021. Work-up with a noncontrast CT abdomen pelvis due to MAYNOR showed a partial large bowel obstruction at the splenic flexure. #Partial large bowel obstruction at the splenic flexure #Acute kidney injury, likely prerenal due to vomiting and bowel obstruction #Intractable nausea and vomiting due to bowel obstruction #Gluteal pressure wounds status post debridement 10/27/2021 #Resolved pancytopenia secondary to chemotherapy #Normocytic anemia #Hypophosphatemia #Bilateral lower extremity pedal edema #Probable liver cirrhosis #Small/moderate ascites #Oropharyngeal candidiasis #Possible mild colonic wall thickening per CT #Diarrhea #Diabetes mellitus #Colon cancer status post partial hemicolectomy currently on chemotherapy #Malnourishment Plan -The patient will have NGT clamped today-> if no nausea within 4h, will remove, ADAT -Transfer out of ICU today -General surgery consulted for partial large bowel obstruction.->Barium study confirmed ileus, no evidence of mass. Transfer to outside facility cancelled. -IV fluid, monitor renal function and urine output. -NG for low intermittent suctioning. -Nystatin for oropharyngeal candidiasis, treat for 7 to 14 days -Correction Humalog SSImedium. -Continue home Atorvastatin and cholestyramine. -Wound cares for left toe wound and gluteal pressure wound. -Offloading gluteal pressure wounds. -N.p.o. except meds. 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 -DVT prophylaxis: Lovenox -Disposition: [facility] facility for rehab. Referral to wound care clinic for left toe wound and gluteal pressure wound. Time Spent With Patient Time: Total time spent is greater than 50% in coordination of care (as documented) at patient's floor/unit and/or counseling patient: Total time spent with greater than 50% in coordination of care (as documented) at patient's floor/unit and/or counseling patient:: 35 - 50 minutes QUALITY VTE Deep Vein Thrombosis/Pulmonary Embolism Present on Admission: No
[2021-11-01 11:14] LABS: ALT/SGPT 14 U/L (<40); AST/SGOT 24 U/L (<40); Albumin 2.4 gm/dL (3.2-5.2); Alkaline Phosphatase 118 U/L (39-117); Bilirubin,Direct 0.3 mg/dL (<0.3); Bilirubin,Total 0.7 mg/dL (0.1-1.0); Blood Urea Nitrogen 37 mg/dL (8-23); Calcium 8.5 mg/dL (8.6-10.4); Carbon Dioxide 22 mmol/L (22-30); Chloride 112 mmol/L (96-108); Globulin 2.4 gm/dL (2.2-3.7); Glomerular Filtration Rate 58; Glucose 133 mg/dL (70-105); Lactate Dehydrogenase 371 U/L (135-225); Phosphorous 2.7 mg/dL (2.5-4.5); Triglycerides 100 mg/dL (<150); Uric Acid 3.8 mg/dL (2.5-8.0)
--- NOTE | 2021-11-01 13:33 | General Surgery Progress Note ---
SUBJECTIVE Subjective Patient information: Note initiated : 11/01/21 at 1:32 pm Service Date, if different from initiated Date: [] Patient: Will Lyn 75 y/o M admitted on 10/26/21 for Weak. Chief Complaint: [] Principal diagnosis: Bowel obstruction Interval history: Doing well today. Small bowel movement overnight. No nausea vomiting fevers or chills. Constitutional Vitals: Vital Signs Temp Pulse Resp BP Pulse Ox 97.6 F 70 18 115/74 100 11/01/21 12:17 10/31/21 14:00 11/01/21 12:17 11/01/21 12:17 11/01/21 12:17 Period Temp Pulse Resp BP Sys/Hawkins Pulse Ox Last 24 Hr 97 F-98.6 F 70 17- 98-144/51-74 98-100 Intake and Output 10/31/21 11/01/21 11/01/21 21:59 05:59 13:59 Intake Total 1000 1000 0 Output Total 175 516 150 Balance 825 484 -150 Weight 177 lb 9 oz Intake & Output: Intake & Output 10/31/21 11/01/21 11/01/21 21:59 05:59 13:59 Intake Total 1000 1000 0 Output Total 175 516 150 Balance 825 484 -150 Weight 177 lb 9 oz Intake: IV 1000 1000 Sodium Chloride 0.9% 1,000 ml @ 1000 1000 125 mls/hr IV .Q8H [facility] Rx#: [id number] Tube Feeding 0 0 Output: Gastric Drainage 250 150 NG/OG 250 150 Urine Catheter Amount 175 265 Stool 1 Other: Urine Appearance Clear Clear Uretheral (Manzo) Clear Urine Color Dark Yellow Straw Uretheral (Manzo) Straw Bright Yellow Urine Odor Normal Stool Size Moderate Large Small Stool Color Brown Brown Brown Yellow Green Stool Consistency Liquid Liquid Liquid Watery Watery # Bowel Movements 1 1 # of times incontinent of 1 1 1 Bowels General appearance: cooperative and no acute distress GI/Abdominal GI/Abdominal exam: Present soft; Absent distended or tenderness A/P Assessment and plan (1) Status post colectomy: Status: Inactive Plan Doing well. DC NG tube. Advance diet as tolerated. Time Spent With Patient Time: Total time spent is greater than 50% in coordination of care (as documented) at patient's floor/unit and/or counseling patient:
[2021-11-01] MEDS: SENNOSIDES 1 TABLET PO SCH (20:34)
[2021-11-02] MEDS: 0.9 % SODIUM CHLORIDE 1,000 ML IV SCH ×3 (03:49→21:24)
[2021-11-02] MEDS: 0.9 % SODIUM CHLORIDE 10 ML SYRINGE IV SCH ×3 (04:13→21:20)
[2021-11-02] MEDS: CHOLESTYRAMINE/ASPARTAME 4 GM POWD.PACK PO SCH ×2 (07:12→21:25)
[2021-11-02] MEDS: INSULIN LISPRO 1 UNIT/0.01 ML UNIT SQ SCH ×4 (07:15→21:20)
[2021-11-02] MEDS: NYSTATIN 500,000 UNITS/5 ML ORAL.SUSP SSW SCH ×3 (08:12→17:45)
[2021-11-02] MEDS: ENOXAPARIN 40 MG/0.4 ML SYRINGE SQ SCH (08:12)
[2021-11-02] MEDS: DIPHENOXYLATE HCL/ATROPINE 1 TABLET PO SCH ×2 (08:12→13:34)
[2021-11-02] MEDS: INSULIN GLARGINE, HUMAN 1 UNIT/0.01 ML SQ SCH (08:13)
--- NOTE | 2021-11-02 09:30 | Internal Med Progress Note ---
SUBJECTIVE Subjective Patient information: Note initiated : 11/02/21 at 9:28 am Service Date, if different from initiated Date: [as above] Patient: Will Lyn 75 y/o M admitted on 10/26/21 for Weak. Chief Complaint: [Ileus] Principal diagnosis: Bowel obstruction Interval history: NGT out, transferred out of ICU. Doing well. Discussed with RN. Constitutional Vitals: Vital Signs Temp Pulse Resp BP Pulse Ox 97 F 64 16 103/59 98 11/02/21 07:35 11/02/21 07:35 11/02/21 07:35 11/02/21 07:35 11/02/21 07:35 Period Temp Pulse Resp BP Sys/Hawkins Pulse Ox Last 24 Hr 96.8 F-97.9 F 61-78 16-20 103-135/48-74 94-100 Intake and Output 11/01/21 11/02/21 11/02/21 21:59 05:59 13:59 Intake Total 1289 1480 Output Total 525 250 Balance 764 1230 Weight 89.358 kg Intake & Output: Intake & Output 11/01/21 11/02/21 11/02/21 21:59 05:59 13:59 Intake Total 1289 1480 Output Total 525 250 Balance 764 1230 Weight 89.358 kg Intake: IV 329 1000 Sodium Chloride 0.9% 1,000 ml @ 329 1000 125 mls/hr IV .Q8H REPLACED BY [facility] Rx#: [id number] Oral 960 480 Output: Urine Catheter Amount 525 250 Other: Urine Appearance Cloudy Clear Uretheral (Manzo) Clear Clear Urine Color Dark Yellow Dark Yellow Uretheral (Manzo) Dark Yellow Dark Yellow Urine Odor Strong Strong Stool Size Large Stool Color Brown Stool Consistency Liquid # Bowel Movements 1 # of times incontinent of 1 Bowels Head Head exam: Present atraumatic and normal inspection Eye Eye exam: Present normal appearance ENT ENT exam: Present mucous membranes moist, normal exam and normal external ear exam Neck Neck exam: Present normal inspection Respiratory Respiratory exam: Present normal respiratory exam Cardiovascular Cardiovascular exam: Present normal rate and rhythm GI/Abdominal GI/Abdominal exam: Present normal bowel sounds Back Exam Back exam: Present normal inspection Neurological Exam Neurological exam: Present alert and oriented X3 Skin Skin exam: Present intact and warm OBJ DATA Labs CBC & Chem 7: 10/31/21 12:32 11/01/21 08:55 Labs: Abnormal Lab Results 11/01/21 10/31/21 10/31/21 08:55 12:32 12:32 RBC 2.96 L Hgb 10.1 L Hct 30.2 L MCV 102.0 H MCH 34.1 H Plt Count 128 L Neut % (Auto) 0 L Lymph % (Auto) 0 L [place] % (Auto) 0 L Lymph # (Auto) 0.72 L [place] # (Auto) 0.96 H VBG Lactic Acid Sodium 146 H Chloride 112 H BUN 37 H 44 H Creatinine 1.7 H Glucose 133 H 154 H Calcium 8.5 L Direct Bilirubin 0.3 H Alkaline Phosphatase 118 H Lactate Dehydrogenase 371 H Total Protein 4.8 L 4.9 L Albumin 2.4 L 2.1 L Albumin/Globulin Ratio 0.8 L POC Troponin I 10/30/21 10/30/21 11:34 11:31 RBC Hgb Hct MCV MCH Plt Count Neut % (Auto) Lymph % (Auto) [place] % (Auto) Lymph # (Auto) [place] # (Auto) VBG Lactic Acid 2.4 H Sodium Chloride BUN Creatinine Glucose Calcium Direct Bilirubin Alkaline Phosphatase Lactate Dehydrogenase Total Protein Albumin Albumin/Globulin Ratio POC Troponin I 0.09 H Meds: Medications Acetaminophen (Acetaminophen 500 Mg Tablet) 500 mg PO Q4HP PRN; Protocol PRN Reason: Per Pain Protocol Last Admin: 10/27/21 03:52 Dose: 500 mg Documented by: Hydrocodone Bitart/Acetaminophen (Hydrocodone/Apap 5/325mg Tablet) 1 tab PO Q4HP PRN; Protocol PRN Reason: Per Pain Protocol Atorvastatin Calcium (Atorvastatin 40 Mg Tablet) 80 mg PO HS REPLACED BY [facility] Last Admin: 11/01/21 20:34 Dose: 80 mg Documented by: Cholestyramine Resin (Cholestyramine/Aspartame 4 Gm Powd.Pack) 4 gm PO BID@0700,1900 REPLACED BY [facility] Last Admin: 11/02/21 07:12 Dose: 4 gm Documented by: Dextrose (Dextrose 50% 50 Ml Vial) 0 ml IV UD PRN PRN Reason: Per Sliding Scale Diagnostic Test (Pha) (Accu-Chek 1 Each Strip) 1 each FS ACHS REPLACED BY [facility] Last Admin: 11/02/21 07:12 Dose: 1 each Documented by: Diphenoxylate HCl/Atropine (Diphenoxylate Hcl/Atropine 1 Tablet) 2 tab PO QID REPLACED BY [facility] Last Admin: 11/02/21 08:12 Dose: 2 tab Documented by: Enoxaparin Sodium (Enoxaparin 40 Mg/0.4 Ml Syringe) 40 mg SQ DAILY REPLACED BY [facility] Last Admin: 11/02/21 08:12 Dose: 40 mg Documented by: Glucose (Dextrose 31 Gm Oral.Susp) 15 gm PO PRN PRN PRN Reason: Hypoglycemia Sodium Chloride (Sodium Chloride 0.9%) 1,000 mls @ 125 mls/hr IV .Q8H REPLACED BY [facility] Last Admin: 11/02/21 03:49 Dose: 125 mls/hr Documented by: Insulin Glargine (Insulin Glargine, Human 1 Unit/0.01 Ml) 10 unit SQ DAILY REPLACED BY [facility] Last Admin: 11/02/21 08:13 Dose: 10 unit Documented by: Insulin Human Lispro (Insulin Lispro 1 Unit/0.01 Ml Unit) 0 unit SQ ACHS REPLACED BY [facility]; Protocol Last Admin: 11/02/21 07:15 Dose: Not Given Documented by: Nitroglycerin (Nitroglycerin 0.4 Mg Tab.Subl) 0.4 mg SL Q5M PRN PRN Reason: Chest Pain Nystatin (Nystatin 500,000 Units/5 Ml Oral.Susp) 500,000 units SSW QID REPLACED BY [facility] Stop: 11/02/21 17:18 Last Admin: 11/02/21 08:12 Dose: 500,000 units Documented by: Ondansetron HCl (Ondansetron 4 Mg/2 Ml Vial) 4 mg IV Q6HP PRN PRN Reason: Nausea And Vomiting Last Admin: 10/30/21 04:51 Dose: 4 mg Documented by: Promethazine HCl (Promethazine 25 Mg/Ml Vial) 12.5 mg IV Q4HP PRN PRN Reason: Nausea And Vomiting Last Admin: 10/29/21 23:34 Dose: 12.5 mg Documented by: Senna (Sennosides 1 Tablet) 2 tab PO HS REPLACED BY [facility] Last Admin: 11/01/21 20:34 Dose: 2 tab Documented by: Sodium Chloride (0.9 % Sodium Chloride 10 Ml Syringe) 10 ml IV Q8 REPLACED BY [facility] Last Admin: 11/02/21 04:13 Dose: Not Given Documented by: A/P Narrative A/P Narrative: Assessment: 75 year old male with a history of diabetes mellitus, obesity, nonhealing decubitus pressure ulcer, colon cancer status post partial hemicolectomy currently receiving chemotherapy who presented to the ED for feeling generally unwell. In the ED, the patient was found to be pancytopenic, likely secondary to chemotherapy, and hypokalemic. The patient was admitted for further evaluation of a gluteal pressure wound. General surgery was consulted and performed debridement of the patient's pressure wound. Neutropenia resolved, the patient felt better however developed nausea, vomiting and ta chycardic on the night of 10/30/2021. Work-up with a noncontrast CT abdomen pelvis due to MAYNOR showed a partial large bowel obstruction at the splenic flexure. #Partial large bowel obstruction at the splenic flexure #Acute kidney injury, likely prerenal due to vomiting and bowel obstruction #Intractable nausea and vomiting due to bowel obstruction #Gluteal pressure wounds status post debridement 10/27/2021 #Resolved pancytopenia secondary to chemotherapy #Normocytic anemia #Hypophosphatemia #Bilateral lower extremity pedal edema #Probable liver cirrhosis #Small/moderate ascites #Oropharyngeal candidiasis #Possible mild colonic wall thickening per CT #Diarrhea #Diabetes mellitus #Colon cancer status post partial hemicolectomy currently on chemotherapy #Malnourishment Plan -NGT out 11/01 -Transfer out of ICU 11/01 -ADAT, awaiting discharge to [facility] Care -General surgery consulted for partial large bowel obstruction.->Barium study confirmed ileus, no evidence of mass. Transfer to outside facility cancelled. -IV fluid, monitor renal function and urine output. -NG for low intermittent suctioning. -Nystatin for oropharyngeal candidiasis, treat for 7 to 14 days -Correction Humalog SSImedium. -Continue home Atorvastatin and cholestyramine. -Wound cares for left toe wound and gluteal pressure wound. -Offloading gluteal pressure wounds. -N.p.o. except meds. 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 -satellite project site monitor. -DVT prophylaxis: Lovenox -Disposition: [facility] facility for rehab. Referral to wound care clinic for left toe wound and gluteal pressure wound. Time Spent With Patient Time: Total time spent is greater than 50% in coordination of care (as documented) at patient's floor/unit and/or counseling patient: Total time spent with greater than 50% in coordination of care (as documented) at patient's floor/unit and/or counseling patient:: 25 - 35 minutes QUALITY VTE Deep Vein Thrombosis/Pulmonary Embolism Present on Admission: No
--- NOTE | 2021-11-02 17:31 | General Surgery Progress Note ---
SUBJECTIVE Subjective Patient information: Note initiated : 11/02/21 at 5:29 pm Service Date, if different from initiated Date: [] Patient: Will Lyn 75 y/o M admitted on 10/26/21 for Weak. Chief Complaint: [] Principal diagnosis: Bowel obstruction Interval history: transferred out of ICU, gely diet, no complaints, continues with BM and flatus Constitutional Vitals: Vital Signs Temp Pulse Resp BP Pulse Ox 97 F 64 16 131/62 98 11/02/21 12:00 11/02/21 12:00 11/02/21 12:00 11/02/21 12:00 11/02/21 12:00 Period Temp Pulse Resp BP Sys/Hawkins Pulse Ox Last 24 Hr 96.8 F-97.9 F 61-78 16-18 103-135/59-68 94-99 Intake and Output 11/02/21 11/02/21 11/02/21 05:59 13:59 21:59 Intake Total 1480 1480 Output Total 250 200 100 Balance 1230 1280 -100 Weight 197 lb Patient Weight 11/03/21 05:59 Weight 197 lb Intake & Output: Intake & Output 11/02/21 11/02/21 11/02/21 05:59 13:59 21:59 Intake Total 1480 1480 Output Total 250 200 100 Balance 1230 1280 -100 Weight 197 lb Intake: IV 1000 1000 Sodium Chloride 0.9% 1,000 ml @ 1000 1000 125 mls/hr IV .Q8H [facility] Rx#: [id number] Oral 480 480 Tube Feeding 0 Output: Urine Catheter Amount 250 200 100 Other: Meal Lunch Percent of Meal Consumed 100% Feeding Ability Independent Urine Appearance Clear Uretheral (Manzo) Clear Urine Color Dark Yellow Dark Yellow Uretheral (Manzo) Dark Yellow Urine Odor Strong Stool Consistency Liquid General appearance: cooperative and no acute distress GI/Abdominal GI/Abdominal exam: Present soft; Absent distended or tenderness A/P Assessment and plan (1) Status post colectomy: Plan: doing well. advance diet as tolerated. call with further questiions Status: Inactive Time Spent With Patient Time: Total time spent is greater than 50% in coordination of care (as documented) at patient's floor/unit and/or counseling patient:
[2021-11-02] MEDS: SENNOSIDES 1 TABLET PO SCH (21:25)
[2021-11-02] MEDS: ATORVASTATIN 40 MG TABLET PO SCH (21:25)
[2021-11-03] MEDS: 0.9 % SODIUM CHLORIDE 1,000 ML IV SCH ×5 (03:43→18:38)
[2021-11-03] MEDS: 0.9 % SODIUM CHLORIDE 10 ML SYRINGE IV SCH ×3 (05:15→20:26)
[2021-11-03] MEDS: INSULIN LISPRO 1 UNIT/0.01 ML UNIT SQ SCH ×4 (07:18→20:26)
[2021-11-03] MEDS: CHOLESTYRAMINE/ASPARTAME 4 GM POWD.PACK PO SCH ×2 (08:10→20:26)
[2021-11-03] MEDS: ENOXAPARIN 40 MG/0.4 ML SYRINGE SQ SCH (08:56)
[2021-11-03] MEDS: INSULIN GLARGINE, HUMAN 1 UNIT/0.01 ML SQ SCH (08:56)
--- NOTE | 2021-11-03 08:57 | Internal Med Progress Note ---
SUBJECTIVE Subjective Patient information: Note initiated : 11/03/21 at 8:55 am Service Date, if different from initiated Date: [] Patient: Will Lyn 75 y/o M admitted on 10/26/21 for Weak. Chief Complaint: [SOB, wheezing] Principal diagnosis: Bowel obstruction Interval history: The patient today was noted to have a mild aspiration event. He was not hypoxemic. Discussed the case with the RN who was present at the bedside. I discussed the importance of sitting upright with his chin down for his meals. We will obtain a chest x-ray. Constitutional Vitals: Vital Signs Temp Pulse Resp BP Pulse Ox 97.6 F 77 16 118/63 97 11/03/21 06:50 11/03/21 06:50 11/03/21 06:50 11/03/21 06:50 11/03/21 06:50 Period Temp Pulse Resp BP Sys/Hawkins Pulse Ox Last 24 Hr 97 F-98.2 F 64-78 16-20 97-136/52-75 97-99 Intake and Output 11/02/21 11/03/21 11/03/21 21:59 05:59 13:59 Intake Total 1000 1067 Output Total 100 275 Balance 900 792 Weight 87.952 kg Intake & Output: Intake & Output 11/02/21 11/03/21 11/03/21 21:59 05:59 13:59 Intake Total 1000 1067 Output Total 100 275 Balance 900 792 Weight 87.952 kg Intake: IV 1000 992 Sodium Chloride 0.9% 1,000 ml @ 1000 992 125 mls/hr IV .Q8H [facility] Rx#: [id number] Oral 75 Output: Urine Catheter Amount 100 275 Other: Urine Appearance Clear Urine Color Dark Yellow Head Head exam: Present atraumatic and normal inspection Eye Eye exam: Present normal appearance ENT ENT exam: Present mucous membranes moist, normal exam and normal external ear exam Neck Neck exam: Present normal inspection Respiratory Respiratory exam: Present rales and wheezes Cardiovascular Cardiovascular exam: Present normal rate and rhythm GI/Abdominal GI/Abdominal exam: Present normal bowel sounds Back Exam Back exam: Present normal inspection Neurological Exam Neurological exam: Present alert and oriented X3 Skin Skin exam: Present intact and warm OBJ DATA Labs CBC & Chem 7: 10/31/21 12:32 11/01/21 08:55 Labs: Abnormal Lab Results 11/01/21 10/31/21 10/31/21 08:55 12:32 12:32 RBC 2.96 L Hgb 10.1 L Hct 30.2 L MCV 102.0 H MCH 34.1 H Plt Count 128 L Neut % (Auto) 0 L Lymph % (Auto) 0 L [place] % (Auto) 0 L Lymph # (Auto) 0.72 L [place] # (Auto) 0.96 H Sodium 146 H Chloride 112 H BUN 37 H 44 H Creatinine 1.7 H Glucose 133 H 154 H Calcium 8.5 L Direct Bilirubin 0.3 H Alkaline Phosphatase 118 H Lactate Dehydrogenase 371 H Total Protein 4.8 L 4.9 L Albumin 2.4 L 2.1 L Albumin/Globulin Ratio 0.8 L Meds: Medications Acetaminophen (Acetaminophen 500 Mg Tablet) 500 mg PO Q4HP PRN; Protocol PRN Reason: Per Pain Protocol Last Admin: 10/27/21 03:52 Dose: 500 mg Documented by: Hydrocodone Bitart/Acetaminophen (Hydrocodone/Apap 5/325mg Tablet) 1 tab PO Q4HP PRN; Protocol PRN Reason: Per Pain Protocol Atorvastatin Calcium (Atorvastatin 40 Mg Tablet) 80 mg PO HS [facility] Last Admin: 11/02/21 21:25 Dose: 80 mg Documented by: Cholestyramine Resin (Cholestyramine/Aspartame 4 Gm Powd.Pack) 4 gm PO BID@0700,1900 [facility] Last Admin: 11/03/21 08:10 Dose: 4 gm Documented by: Dextrose (Dextrose 50% 50 Ml Vial) 0 ml IV UD PRN PRN Reason: Per Sliding Scale Diagnostic Test (Pha) (Accu-Chek 1 Each Strip) 1 each FS ACHS [facility] Last Admin: 11/03/21 07:18 Dose: 1 each Documented by: Enoxaparin Sodium (Enoxaparin 40 Mg/0.4 Ml Syringe) 40 mg SQ DAILY [facility] Last Admin: 11/02/21 08:12 Dose: 40 mg Documented by: Glucose (Dextrose 31 Gm Oral.Susp) 15 gm PO PRN PRN PRN Reason: Hypoglycemia Sodium Chloride (Sodium Chloride 0.9%) 1,000 mls @ 125 mls/hr IV .Q8H [facility] Last Admin: 11/03/21 08:43 Dose: Not Given Documented by: Insulin Glargine (Insulin Glargine, Human 1 Unit/0.01 Ml) 10 unit SQ DAILY [facility] Last Admin: 11/02/21 08:13 Dose: 10 unit Documented by: Insulin Human Lispro (Insulin Lispro 1 Unit/0.01 Ml Unit) 0 unit SQ ACHS [facility]; Protocol Last Admin: 11/03/21 07:18 Dose: Not Given Documented by: Nitroglycerin (Nitroglycerin 0.4 Mg Tab.Subl) 0.4 mg SL Q5M PRN PRN Reason: Chest Pain Ondansetron HCl (Ondansetron 4 Mg/2 Ml Vial) 4 mg IV Q6HP PRN PRN Reason: Nausea And Vomiting Last Admin: 10/30/21 04:51 Dose: 4 mg Documented by: Promethazine HCl (Promethazine 25 Mg/Ml Vial) 12.5 mg IV Q4HP PRN PRN Reason: Nausea And Vomiting Last Admin: 10/29/21 23:34 Dose: 12.5 mg Documented by: Senna (Sennosides 1 Tablet) 2 tab PO HS [facility] Last Admin: 11/02/21 21:25 Dose: 2 tab Documented by: Sodium Chloride (0.9 % Sodium Chloride 10 Ml Syringe) 10 ml IV Q8 [facility] Last Admin: 11/03/21 05:15 Dose: Not Given Documented by: A/P Narrative A/P Narrative: Assessment: 75 year old male with a history of diabetes mellitus, obesity, nonhealing decubitus pressure ulcer, colon cancer status post partial hemicolectomy currently receiving chemotherapy who presented to the ED for feeling generally unwell. In the ED, the patient was found to be pancytopenic, likely secondary to chemotherapy, and hypokalemic. The patient was admitted for further evaluation of a gluteal pressure wound. General surgery was consulted and performed debridement of the patient's pressure wound. Neutropenia resolved, the patient felt better however developed nausea, vomiting and tachycardic on the night of 10/30/2021. Work-up with a noncontrast CT abdomen pelvis due to MAYNOR showed a partial large bowel obstruction at the splenic flexure. #Partial large bowel obstruction at the splenic flexure #Acute kidney injury, likely prerenal due to vomiting and bowel obstruction #Intractable nausea and vomiting due to bowel obstruction #Gluteal pressure wounds status post debridement 10/27/2021 #Resolved pancytopenia secondary to chemotherapy #Normocytic anemia #Hypophosphatemia #Bilateral lower extremity pedal edema #Probable liver cirrhosis #Small/moderate ascites #Oropharyngeal candidiasis #Possible mild colonic wall thickening per CT #Diarrhea #Diabetes mellitus #Colon cancer status post partial hemicolectomy currently on chemotherapy #Malnourishment Plan -Today, the patient developed an aspiration event. Will obtain chest x-ray, repeat labs, and start therapy with Augmentin as Unasyn was not available on formulary. Speech eval will be performed. The patient is chronically ill and significantly debilitated. He would highly benefit from palliative services. -NGT out 11/01 -Transfer out of ICU 11/01 -ADAT, awaiting discharge to [facility] Care -General surgery consulted for partial large bowel obstruction.->Barium study confirmed ileus, no evidence of mass. Transfer to outside facility cancelled. -IV fluid, monitor renal function and urine output. -NG for low intermittent suctioning. -Nystatin for oropharyngeal candidiasis, treat for 7 to 14 days -Correction Humalog SSImedium. -Continue home Atorvastatin and cholestyramine. -Wound cares for left toe wound and gluteal pressure wound. -Offloading gluteal pressure wounds. -N.p.o. except meds. 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 -sander portable machine. -DVT prophylaxis: Lovenox -Disposition: custodial facility for rehab. Referral to wound care clinic for left toe wound and gluteal pressure wound. Time Spent With Patient Time: Total time spent is greater than 50% in coordination of care (as documented) at patient's floor/unit and/or counseling patient: Total time spent with greater than 50% in coordination of care (as documented) at patient's floor/unit and/or counseling patient:: 25 - 35 minutes QUALITY VTE Deep Vein Thrombosis/Pulmonary Embolism Present on Admission: No
[2021-11-03 10:14] LABS: Blood Urea Nitrogen 21 mg/dL (8-23); Calcium 8.1 mg/dL (8.6-10.4); Carbon Dioxide 21 mmol/L (22-30); Chloride 102 mmol/L (96-108); Glomerular Filtration Rate 87; Glucose 143 mg/dL (70-105)
[2021-11-03] MEDS: AMOXICILLIN/POTASSIUM CLAV 875 MG TABLET PO SCH ×2 (10:14→17:31)
[2021-11-03 10:20] LABS: Basophils # (Auto) 0.03 K/mcL (0.00-0.30); Basophils % (Auto) 0.3 % (0.0-2.0); Eosinophils # (Auto) 0.02 K/mcL (0.00-0.70); Eosinophils % (Auto) 0.2 % (0.0-7.0); Hematocrit 36.1 % (40.1-51.0); Hemoglobin 11.8 g/dL (13.7-17.5); Lymphocytes # (Auto) 1.05 K/mcL (1.50-4.80); Lymphocytes % (Auto) 9.8 % (15.5-49.0); Mean Cell Volume 104.9 fL (80.0-100.0); Mean Corpuscular HGB Conc 32.7 g/dL (31.0-36.0); Mean Platelet Volume 9.6 fL (7.4-10.4); Monocytes # (Auto) 0.68 K/mcL (0.10-0.90); Monocytes % (Auto) 6.3 % (1.0-12.0); Neutrophils % (Auto) 83.4 % (38.0-78.0); Platelet Count 139 K/mcL (140-440); RBC 3.44 M/mcL (4.63-6.08); WBC 10.7 K/mcL (4.5-11.0)
[2021-11-03] MEDS: IPRATROPIUM/ALBUTEROL 3 ML AMPUL.NEB NEB SCH ×2 (13:10→19:08)
--- NOTE | 2021-11-03 16:32 | XRay Report ---
HISTORY: New onset shortness of breath and weakness FINDINGS: Lung volumes are small due to poor inspiration. This is causing minor compressive atelectasis adjacent to the diaphragm in both lower lobes. The poor inspiration is worse today than it had been on 10/26/21. There is no consolidating infiltrate or mass. The heart size and pulmonary vasculature are normal. No pleural effusion is present. There is a large amount gas in the large bowel beneath the diaphragm. IMPRESSION: Poor inspiration with minor atelectasis in both lung bases Interpreted and Authenticated by: Aldair Bedolla 11/03/21
[2021-11-03] MEDS: ATORVASTATIN 40 MG TABLET PO SCH (20:26)
[2021-11-03] MEDS: SENNOSIDES 1 TABLET PO SCH (20:26)
[2021-11-04] MEDS: 0.9 % SODIUM CHLORIDE 1,000 ML IV SCH ×5 (00:23→20:47)
[2021-11-04] MEDS: IPRATROPIUM/ALBUTEROL 3 ML AMPUL.NEB NEB SCH ×4 (01:27→18:57)
[2021-11-04] MEDS: 0.9 % SODIUM CHLORIDE 10 ML SYRINGE IV SCH ×3 (04:43→20:12)
[2021-11-04] MEDS: CHOLESTYRAMINE/ASPARTAME 4 GM POWD.PACK PO SCH ×2 (07:42→21:08)
[2021-11-04] MEDS: INSULIN LISPRO 1 UNIT/0.01 ML UNIT SQ SCH ×3 (08:00→17:26)
[2021-11-04] MEDS: INSULIN GLARGINE, HUMAN 1 UNIT/0.01 ML SQ SCH (08:37)
[2021-11-04] MEDS: ENOXAPARIN 40 MG/0.4 ML SYRINGE SQ SCH (08:38)
[2021-11-04] MEDS: AMOXICILLIN/POTASSIUM CLAV 875 MG TABLET PO SCH (08:42)
[2021-11-04] MEDS ORDERED: POLYETHYLENE GLYCOL 3350 17 GM PACKET PO PRN (09:23)
--- NOTE | 2021-11-04 09:26 | Internal Med Progress Note ---
SUBJECTIVE Subjective Patient information: Note initiated : 11/04/21 at 9:23 am Service Date, if different from initiated Date: [] Patient: Will Lyn 75 y/o M admitted on 10/26/21 for Weak. Chief Complaint: [Falls, weakness] Principal diagnosis: Bowel obstruction Interval history: The patient complains of ongoing issues with nerve pain in his feet. He has been unable to ambulate. His bowels are sluggish. He does have issues with swallowing and there was concern yesterday that he may have aspirated. We had a long goals of care discussion today. He understands that he may need to consider hospice. Constitutional Vitals: Vital Signs Temp Pulse Resp BP Pulse Ox 98.4 F 104 H 20 92/53 98 11/04/21 06:45 11/04/21 08:45 11/04/21 07:42 11/04/21 08:45 11/04/21 07:42 Period Temp Pulse Resp BP Sys/Hawkins Pulse Ox Last 24 Hr 97.3 F-99.3 F 76-104 16-24 78-108/42-67 95-99 Intake and Output 11/03/21 11/04/21 11/04/21 21:59 05:59 13:59 Intake Total 897 1050 Output Total 500 225 Balance 397 825 Weight 91.036 kg Intake & Output: Intake & Output 11/03/21 11/04/21 11/04/21 21:59 05:59 13:59 Intake Total 897 1050 Output Total 500 225 Balance 397 825 Weight 91.036 kg Intake: IV 657 1000 Sodium Chloride 0.9% 1,000 ml @ 657 1000 100 mls/hr IV .Q10H [facility] Rx#: [id number] Oral 240 50 Output: Urine Catheter Amount 500 Void Amount 225 Other: Urine Appearance Clear Uretheral (Manzo) Clear Urine Color Dark Yellow Uretheral (Manzo) Dark Yellow Head Head exam: Present atraumatic and normal inspection Eye Eye exam: Present normal appearance ENT ENT exam: Present mucous membranes moist, normal exam and normal external ear exam Neck Neck exam: Present normal inspection Respiratory Respiratory exam: Present normal respiratory exam Cardiovascular Cardiovascular exam: Present normal rate and rhythm GI/Abdominal GI/Abdominal exam: Present normal bowel sounds Back Exam Back exam: Present normal inspection Neurological Exam Neurological exam: Present alert and oriented X3 Skin Skin exam: Present intact and warm OBJ DATA Labs CBC & Chem 7: 11/03/21 08:50 11/03/21 08:50 Labs: Abnormal Lab Results 11/03/21 11/03/21 11/01/21 08:50 08:50 08:55 RBC 3.44 L Hgb 11.8 L Hct 36.1 L MCV 104.9 H MCH 34.3 H Plt Count 139 L Neut % (Auto) 83.4 H Lymph % (Auto) 9.8 L Lymph # (Auto) 1.05 L Absolute Neutrophils 8.95 H Sodium 146 H Potassium 3.2 L Chloride 112 H Carbon Dioxide 21 L BUN 37 H Glucose 143 H 133 H Calcium 8.1 L 8.5 L Direct Bilirubin 0.3 H Alkaline Phosphatase 118 H Lactate Dehydrogenase 371 H Total Protein 4.8 L Albumin 2.4 L Meds: Medications Acetaminophen (Acetaminophen 500 Mg Tablet) 500 mg PO Q4HP PRN; Protocol PRN Reason: Per Pain Protocol Last Admin: 10/27/21 03:52 Dose: 500 mg Documented by: Hydrocodone Bitart/Acetaminophen (Hydrocodone/Apap 5/325mg Tablet) 1 tab PO Q4HP PRN; Protocol PRN Reason: Per Pain Protocol Albuterol/Ipratropium (Ipratropium/Albuterol 3 Ml Ampul.Neb) 3 ml NEB Q6HRT [facility] Last Admin: 11/04/21 07:39 Dose: 3 ml Documented by: Atorvastatin Calcium (Atorvastatin 40 Mg Tablet) 80 mg PO HS [facility] Last Admin: 11/03/21 20:26 Dose: 80 mg Documented by: Cholestyramine Resin (Cholestyramine/Aspartame 4 Gm Powd.Pack) 4 gm PO BID@0700,1900 [facility] Last Admin: 11/04/21 07:42 Dose: 4 gm Documented by: Dextrose (Dextrose 50% 50 Ml Vial) 0 ml IV UD PRN PRN Reason: Per Sliding Scale Diagnostic Test (Pha) (Accu-Chek 1 Each Strip) 1 each FS ACHS [facility] Last Admin: 11/04/21 07:59 Dose: 1 each Documented by: Enoxaparin Sodium (Enoxaparin 40 Mg/0.4 Ml Syringe) 40 mg SQ DAILY [facility] Last Admin: 11/04/21 08:38 Dose: 40 mg Documented by: Glucose (Dextrose 31 Gm Oral.Susp) 15 gm PO PRN PRN PRN Reason: Hypoglycemia Sodium Chloride (Sodium Chloride 0.9%) 1,000 mls @ 100 mls/hr IV .Q10H [facility] Last Admin: 11/04/21 04:43 Dose: 100 mls/hr Documented by: Insulin Glargine (Insulin Glargine, Human 1 Unit/0.01 Ml) 10 unit SQ DAILY [facility] Last Admin: 11/04/21 08:37 Dose: 10 unit Documented by: Insulin Human Lispro (Insulin Lispro 1 Unit/0.01 Ml Unit) 0 unit SQ ACHS [facility]; Protocol Last Admin: 11/04/21 08:00 Dose: Not Given Documented by: Nitroglycerin (Nitroglycerin 0.4 Mg Tab.Subl) 0.4 mg SL Q5M PRN PRN Reason: Chest Pain Ondansetron HCl (Ondansetron 4 Mg/2 Ml Vial) 4 mg IV Q6HP PRN PRN Reason: Nausea And Vomiting Last Admin: 10/30/21 04:51 Dose: 4 mg Documented by: Promethazine HCl (Promethazine 25 Mg/Ml Vial) 12.5 mg IV Q4HP PRN PRN Reason: Nausea And Vomiting Last Admin: 10/29/21 23:34 Dose: 12.5 mg Documented by: Senna (Sennosides 1 Tablet) 2 tab PO HS [facility] Last Admin: 11/03/21 20:26 Dose: 2 tab Documented by: Sodium Chloride (0.9 % Sodium Chloride 10 Ml Syringe) 10 ml IV Q8 [facility] Last Admin: 11/04/21 04:43 Dose: Not Given Documented by: A/P Narrative A/P Narrative: Assessment: 75 year old male with a history of diabetes mellitus, obesity, nonhealing decubitus pressure ulcer, colon cancer status post partial hemicolectomy currently receiving chemotherapy who presented to the ED for feeling generally unwell. In the ED, the patient was found to be pancytopenic, likely secondary to chemotherapy, and hypokalemic. The patient was admitted for further evaluation of a gluteal pressure wound. General surgery was consulted and performed debridement of the patient's pressure wound. Neutropenia resolve d, the patient felt better however developed nausea, vomiting and tachycardic on the night of 10/30/2021. Work-up with a noncontrast CT abdomen pelvis due to MAYNOR showed a partial large bowel obstruction at the splenic flexure. #Partial large bowel obstruction at the splenic flexure #Acute kidney injury, likely prerenal due to vomiting and bowel obstruction #Intractable nausea and vomiting due to bowel obstruction #Gluteal pressure wounds status post debridement 10/27/2021 #Resolved pancytopenia secondary to chemotherapy #Normocytic anemia #Hypophosphatemia #Bilateral lower extremity pedal edema #Probable liver cirrhosis #Small/moderate ascites #Oropharyngeal candidiasis #Possible mild colonic wall thickening per CT #Diarrhea #Diabetes mellitus #Colon cancer status post partial hemicolectomy currently on chemotherapy #Malnourishment Plan -11/04: The patient's chest x-ray was unrevealing and his Augmentin has been discontinued. He is afebrile with a normal white blood cell count. We had a long goals of care discussion and a family meeting is scheduled. The patient will benefit from hospice. He remains borderline hypotensive, has poor p.o. 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 -11/03, the patient developed an aspiration event. Will obtain chest x-ray, repeat labs, and start therapy with Augmentin as Unasyn was not available on formulary. Speech eval will be performed. The patient is chronically ill and significantly debilitated. He would highly benefit from palliative services. -NGT out 11/01 -Transfer out of ICU 11/01 -ADAT, [facility] -General surgery consulted for partial large bowel obstruction.->Barium study confirmed ileus, no evidence of mass. Transfer to outside facility cancelled. -IV fluid, monitor renal function and urine output. -NG for low intermittent suctioning. -Nystatin for oropharyngeal candidiasis, treat for 7 to 14 days -Correction Humalog SSImedium. -Continue home Atorvastatin and cholestyramine. -Wound cares for left toe wound and gluteal pressure wound. -Offloading gluteal pressure wounds. -N.p.o. except meds. 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 -DVT prophylaxis: Lovenox -[facility] Referral to wound care clinic for left toe wound and gluteal pressure wound. Time Spent With Patient Time: Total time spent is greater than 50% in coordination of care (as documented) at patient's floor/unit and/or counseling patient: Total time spent with greater than 50% in coordination of care (as documented) at patient's floor/unit and/or counseling patient:: 25 - 35 minutes QUALITY VTE Deep Vein Thrombosis/Pulmonary Embolism Present on Admission: No
[2021-11-04 10:58] LABS: Blood Urea Nitrogen 25 mg/dL (8-23); Calcium 7.7 mg/dL (8.6-10.4); Carbon Dioxide 20 mmol/L (22-30); Chloride 106 mmol/L (96-108); Glomerular Filtration Rate 92; Glucose 155 mg/dL (70-105)
[2021-11-04 11:09] LABS: Basophils # (Auto) 0 K/mcL (0.00-0.30); Basophils % (Auto) 0 % (0.0-2.0); Eosinophils # (Auto) 0.02 K/mcL (0.00-0.70); Eosinophils % (Auto) 0.3 % (0.0-7.0); Hematocrit 28.6 % (40.1-51.0); Hemoglobin 9.5 g/dL (13.7-17.5); Lymphocytes # (Auto) 0.76 K/mcL (1.50-4.80); Lymphocytes % (Auto) 10.5 % (15.5-49.0); Mean Cell Volume 103.6 fL (80.0-100.0); Mean Corpuscular HGB Conc 33.2 g/dL (31.0-36.0); Mean Platelet Volume 9.3 fL (7.4-10.4); Monocytes # (Auto) 0.69 K/mcL (0.10-0.90); Monocytes % (Auto) 9.5 % (1.0-12.0); Neutrophils % (Auto) 79.7 % (38.0-78.0); Platelet Count 96 K/mcL (140-440); RBC 2.76 M/mcL (4.63-6.08); WBC 7.3 K/mcL (4.5-11.0)
[2021-11-04] MEDS ORDERED: LACTATED RINGERS 1,000 ML IV ONE (14:13)
[2021-11-04] MEDS ORDERED: IOPAMIDOL 100 ML BOTTLE IV ONE (16:06)
--- NOTE | 2021-11-04 16:37 | Cat Scan Report ---
History: Nausea, vomiting, prior partial colectomy for colon cancer TECHNIQUE: Following injection of intravenous nonionic contrast the patient was imaged from the thoracic inlet through the symphysis pubis at 2.5 mm intervals. Sagittal and coronal reformats were created. The radiation exposure was limited using dose reduction technology. FINDINGS: CHEST: Lung volumes are small. There is moderate atelectasis in both lower lobes with several air bronchograms. Small bilateral layering pleural effusions are present. The upper lung dalal are clear. There is no evidence of a lung mass. The heart size is within normal limits. Aorta is normal in caliber. The thoracic esophagus is moderately distended with fluid. Abdomen and pelvis: There is a moderate to large volume of ascites throughout the abdomen or pelvis. This has increased in volume since the prior abdomen pelvic CT performed on 10/30/21. The liver is small but relatively homogeneous. No varices are identified. The gallbladder appears normal with no stones or thickening of the wall. The bile ducts are nondilated. The spleen is normal in size. There is no mass or inflammation in the pancreas. The adrenals are normal and symmetric. There is a 1.8 cm cortical cyst posteriorly in the upper third of the right kidney. The kidneys are otherwise normal and there is no stone, solid mass or hydronephrosis. The cyst is better seen today than it was on the prior exams since the prior study was performed without contrast. Aorta is normal in caliber and there are scattered plaques along the wall. The stomach is significantly distended with a large amount of fluid. The previously seen nasogastric tube has been removed. The duodenum, jejunum and ileum are normal in caliber. There is no apparent mass or inflammation at the pylorus. No hiatus hernia is present. There is residual barium in the large intestine following the barium enema performed on 10/31/21. The large intestine is normal in caliber. The transition point seen at the splenic flexure on 10/30/21 is not present at this time. The splenic flexure appeared normal on the barium enema. There are no diverticula. Urinary bladder is over distended in spite of the presence of a Manzo catheter. There is a small bubble of air in the bladder due to the Manzo. Moderate subcutaneous edema is present in the chest and abdominal wall. This has increased since 10/30/21. IMPRESSION: Large fluid-filled distended stomach and distended esophagus. Nasogastric tube may be beneficial. No evidence of small or large bowel obstruction Increasing volume of ascites Anasarca Moderate atelectasis in both lower lobes Small liver. Does the patient have cirrhosis clinically Distended urinary bladder. Was the Manzo catheter clamped? Interpreted and Authenticated by: Aldair Bedolla 11/04/21
[2021-11-04] MEDS ORDERED: LORazepam 2 MG/ML VIAL IV PRN (17:13)
[2021-11-04] MEDS ORDERED: HYDROmorphone 1 MG/ML SYRINGE IV PRN (17:13)
[2021-11-04] MEDS ORDERED: LACTOPEROXI/GLUC OXID/POT THIO 1 EACH GEL..EA. TOPICAL PRN (17:13)
[2021-11-05] MEDS: 0.9 % SODIUM CHLORIDE 10 ML SYRINGE IV SCH ×3 (04:19→21:47)
--- NOTE | 2021-11-05 10:51 | Internal Med Progress Note ---
SUBJECTIVE Subjective Patient information: Note initiated : 11/05/21 at 10:48 am Service Date, if different from initiated Date: [as above] Patient: Will Lyn 75 y/o M admitted on 10/26/21 for Weak. Chief Complaint: [Abdominal pain, weakness] Principal diagnosis: Bowel obstruction Interval history: The patient was resting comfortably in bed. Had a long goals of care discussion via multidisciplinary meeting with a niece, nephew, social media senior associate, and RN. The patient was hypotensive yesterday with an elevated lactic acid. Repeat CT was performed which revealed worsening of his ileus and a significantly distended gastrum and esophagus. He would need further aggressive medical management and was decided to transition to hospice. Constitutional Vitals: Vital Signs Temp Pulse Resp BP Pulse Ox 98.7 F 81 16 111/65 96 11/05/21 07:22 11/04/21 18:40 11/05/21 07:22 11/05/21 07:22 11/05/21 07:22 Period Temp Pulse Resp BP Sys/Hawkins Pulse Ox Last 24 Hr 97.9 F-99 F 81-104 16-20 87-111/52-67 95-100 Intake and Output 11/04/21 11/05/21 11/05/21 21:59 05:59 13:59 Intake Total 1720 150 Output Total 700 525 Balance 1020 -375 Intake & Output: Intake & Output 11/04/21 11/05/21 11/05/21 21:59 05:59 13:59 Intake Total 1720 150 Output Total 700 525 Balance 1020 -375 Intake: IV 1000 Sodium Chloride 0.9% 1,000 ml @ 1000 100 mls/hr IV .Q10H [facility] Rx#: [id number] Oral 720 150 Output: Urine Catheter Amount 700 Void Amount 525 Other: Meal Lunch Percent of Meal Consumed 75% Feeding Ability Assist with Tray Set Up Urine Appearance Clear Uretheral (Manzo) Clear Sediment Urine Color Bright Yellow Uretheral (Manzo) Bright Yellow Bright Yellow Head Head exam: Present atraumatic and normal inspection Eye Eye exam: Present normal appearance ENT ENT exam: Present mucous membranes moist, normal exam and normal external ear exam Neck Neck exam: Present normal inspection Respiratory Respiratory exam: Present normal respiratory exam Cardiovascular Cardiovascular exam: Present normal rate and rhythm GI/Abdominal GI/Abdominal exam: Present normal bowel sounds Back Exam Back exam: Present normal inspection Neurological Exam Neurological exam: Present alert and oriented X3 Skin Skin exam: Present intact and warm OBJ DATA Labs CBC & Chem 7: 11/04/21 10:14 11/04/21 10:14 Labs: Abnormal Lab Results 11/04/21 11/04/21 11/04/21 14:04 10:14 10:14 RBC 2.76 L Hgb 9.5 L Hct 28.6 L MCV 103.6 H MCH 34.4 H Plt Count 96 L Neut % (Auto) 79.7 H Lymph % (Auto) 10.5 L Lymph # (Auto) 0.76 L Absolute Neutrophils VBG Lactic Acid 2.1 H Potassium 3.1 L Carbon Dioxide 20 L Anion Gap 7.0 L BUN 25 H Glucose 155 H Calcium 7.7 L 11/03/21 11/03/21 08:50 08:50 RBC 3.44 L Hgb 11.8 L Hct 36.1 L MCV 104.9 H MCH 34.3 H Plt Count 139 L Neut % (Auto) 83.4 H Lymph % (Auto) 9.8 L Lymph # (Auto) 1.05 L Absolute Neutrophils 8.95 H VBG Lactic Acid Potassium 3.2 L Carbon Dioxide 21 L Anion Gap BUN Glucose 143 H Calcium 8.1 L Meds: Medications Acetaminophen (Acetaminophen 500 Mg Tablet) 500 mg PO Q4HP PRN; Protocol PRN Reason: Per Pain Protocol Last Admin: 10/27/21 03:52 Dose: 500 mg Documented by: Hydrocodone Bitart/Acetaminophen (Hydrocodone/Apap 5/325mg Tablet) 1 tab PO Q4HP PRN; Protocol PRN Reason: Per Pain Protocol Glucose Oxid/Lactoperoxid/Muramidas (Lactoperoxi/Gluc Oxid/Pot Thio 1 Each Gel..Ea.) 1 each TOPICAL PRN PRN PRN Reason: Dry Mouth Hydromorphone HCl (Hydromorphone 1 Mg/Ml Syringe) 0.5 - 2 mg IV Q2HP PRN; Protocol PRN Reason: Per Pain Protocol Sodium Chloride (Sodium Chloride 0.9%) 1,000 mls @ 30 mls/hr IV .Q24H [facility] Last Admin: 11/04/21 20:11 Dose: 30 mls/hr Documented by: Lorazepam (Lorazepam 2 Mg/Ml Vial) 0 mg IV Q1HP PRN; Protocol PRN Reason: ANXIETY/SEDATION Ondansetron HCl (Ondansetron 4 Mg/2 Ml Vial) 4 mg IV Q6HP PRN PRN Reason: Nausea And Vomiting Last Admin: 10/30/21 04:51 Dose: 4 mg Documented by: Promethazine HCl (Promethazine 25 Mg/Ml Vial) 12.5 mg IV Q4HP PRN PRN Reason: Nausea And Vomiting Last Admin: 10/29/21 23:34 Dose: 12.5 mg Documented by: Sodium Chloride (0.9 % Sodium Chloride 10 Ml Syringe) 10 ml IV Q8 [facility] Last Admin: 11/05/21 04:19 Dose: Not Given Documented by: A/P Narrative A/P Narrative: Assessment: 75 year old male with a history of diabetes mellitus, obesity, nonhealing decubitus pressure ulcer, colon cancer status post partial hemicolectomy currently receiving chemotherapy who presented to the ED for feeling generally unwell. In the ED, the patient was found to be pancytopenic, likely secondary to chemotherapy, and hypokalemic. The patient was admitted for further evaluation of a gluteal pressure wound. General surgery was consulted a nd performed debridement of the patient's pressure wound. Neutropenia resolved, the patient felt better however developed nausea, vomiting and tachycardic on the night of 10/30/2021. Work-up with a noncontrast CT abdomen pelvis due to MAYNOR showed a partial large bowel obstruction at the splenic flexure. #Partial large bowel obstruction at the splenic flexure #Acute kidney injury, likely prerenal due to vomiting and bowel obstruction #Intractable nausea and vomiting due to bowel obstruction #Gluteal pressure wounds status post debridement 10/27/2021 #Resolved pancytopenia secondary to chemotherapy #Normocytic anemia #Hypophosphatemia #Bilateral lower extremity pedal edema #Probable liver cirrhosis #Small/moderate ascites #Oropharyngeal candidiasis #Possible mild colonic wall thickening per CT #Diarrhea #Diabetes mellitus #Colon cancer status post partial hemicolectomy currently on chemotherapy #Malnourishment Plan -11/05: Due to the patient's clinical deterioration yesterday goals of care discussion was had and he was transition to hospice. 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 He is redeveloped a significant ileus resulting in aspiration. Social work is working [facility]. -11/04: The patient's chest x-ray was unrevealing and his Augmentin has been disc ontinued. He is afebrile with a normal white blood cell count. We had a long goals of care discussion and a family meeting is scheduled. The patient will benefit from hospice. He remains borderline hypotensive, has poor p.o. 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 -11/03, the patient developed an aspiration event. Will obtain chest x-ray, repeat labs, and start therapy with Augmentin as Unasyn was not available on formulary. Speech eval will be performed. The patient is chronically ill and significantly debilitated. He would highly benefit from palliative services. -NGT out 11/01 -Transfer out of ICU 11/01 -ADAT, [facility] -General surgery consulted for partial large bowel obstruction.->Barium study confirmed ileus, no evidence of mass. Transfer to outside facility cancelled. -IV fluid, monitor renal function and urine output. -NG for low intermittent suctioning. -Nystatin for oropharyngeal candidiasis, treat for 7 to 14 days -Correction Humalog SSImedium. -Continue home Atorvastatin and cholestyramine. -Wound cares for left toe wound and gluteal pressure wound. -Offloading gluteal pressure wounds. -N.p.o. except meds. 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 -DVT prophylaxis: Lovenox -Disposition: half-way facility for rehab. Referral to wound care clinic for left toe wound and gluteal pressure wound. Time Spent With Patient Time: Total time spent is greater than 50% in coordination of care (as documented) at patient's floor/unit and/or counseling patient: Total time spent with greater than 50% in coordination of care (as documented) at patient's floor/unit and/or counseling patient:: 25 - 35 minutes QUALITY VTE Deep Vein Thrombosis/Pulmonary Embolism Present on Admission: No
[2021-11-05] MEDS ORDERED: IPRATROPIUM/ALBUTEROL 3 ML AMPUL.NEB NEB PRN (14:34)
[2021-11-05] MEDS: 0.9 % SODIUM CHLORIDE 1,000 ML IV SCH (23:02)
[2021-11-06] MEDS: 0.9 % SODIUM CHLORIDE 10 ML SYRINGE IV SCH ×2 (05:56→13:22)
[2021-11-06] MEDS: ACETAMINOPHEN 500 MG TABLET PO PRN (08:37)
--- NOTE | 2021-11-06 10:33 | Internal Med Progress Note ---
SUBJECTIVE Subjective Patient information: Note initiated : 11/06/21 at 10:32 am Service Date, if different from initiated Date: [] Patient: Will Lyn 75 y/o M admitted on 10/26/21 for Weak. Chief Complaint: [Bowel obstruction] Principal diagnosis: Bowel obstruction Interval history: The patient was resting comfortably in bed. Podiatry will be coming by today. The patient was wondering if he can continue insulin sliding scale and POCT checks. I told him that this was not needed at this time. Discussed the case w man GIL. Constitutional Vitals: Vital Signs Temp Pulse Resp BP Pulse Ox 97 F 84 19 102/71 95 11/06/21 07:26 11/06/21 07:26 11/06/21 07:26 11/06/21 07:26 11/06/21 07:26 Period Temp Pulse Resp BP Sys/Hawkins Pulse Ox Last 24 Hr 97 F-98.4 F 75-85 18-19 87-108/54-71 95-97 Intake and Output 11/05/21 11/06/21 11/06/21 21:59 05:59 13:59 Intake Total 1550 1200 Output Total 475 525 Balance 1075 675 Intake & Output: Intake & Output 11/05/21 11/06/21 11/06/21 21:59 05:59 13:59 Intake Total 1550 1200 Output Total 475 525 Balance 1075 675 Intake: IV 1550 1000 Sodium Chloride 0.9% 1,000 ml @ 1550 1000 30 mls/hr IV .Q24H [facility] Rx#: [id number] Oral 200 Output: Urine Catheter Amount 475 Void Amount 525 Other: Urine Appearance Cloudy Clear Sediment Uretheral (Manzo) Cloudy Sediment Urine Color Light Melanie Straw Uretheral (Manzo) Light Melanie Urine Odor Normal Uretheral (Manzo) Normal Head Head exam: Present atraumatic and normal inspection Eye Eye exam: Present normal appearance ENT ENT exam: Present mucous membranes moist, normal exam and normal external ear exam Neck Neck exam: Present normal inspection Respiratory Respiratory exam: Present normal respiratory exam Cardiovascular Cardiovascular exam: Present normal rate and rhythm GI/Abdominal GI/Abdominal exam: Present normal bowel sounds Back Exam Back exam: Present normal inspection Neurological Exam Neurological exam: Present alert and oriented X3 Skin Skin exam: Present intact and warm OBJ DATA Labs CBC & Chem 7: 11/04/21 10:14 11/04/21 10:14 Labs: Abnormal Lab Results 11/04/21 11/04/21 11/04/21 14:04 10:14 10:14 RBC 2.76 L Hgb 9.5 L Hct 28.6 L MCV 103.6 H MCH 34.4 H Plt Count 96 L Neut % (Auto) 79.7 H Lymph % (Auto) 10.5 L Lymph # (Auto) 0.76 L VBG Lactic Acid 2.1 H Potassium 3.1 L Carbon Dioxide 20 L Anion Gap 7.0 L BUN 25 H Glucose 155 H Calcium 7.7 L Meds: Medications Acetaminophen (Acetaminophen 500 Mg Tablet) 500 mg PO Q4HP PRN; Protocol PRN Reason: Per Pain Protocol Last Admin: 11/06/21 08:37 Dose: 500 mg Documented by: Hydrocodone Bitart/Acetaminophen (Hydrocodone/Apap 5/325mg Tablet) 1 tab PO Q4HP PRN; Protocol PRN Reason: Per Pain Protocol Albuterol/Ipratropium (Ipratropium/Albuterol 3 Ml Ampul.Neb) 3 ml NEB Q6HP PRN PRN Reason: Shortness Of Breath Last Admin: 11/05/21 15:05 Dose: 3 ml Documented by: Glucose Oxid/Lactoperoxid/Muramidas (Lactoperoxi/Gluc Oxid/Pot Thio 1 Each Gel..Ea.) 1 each TOPICAL PRN PRN PRN Reason: Dry Mouth Hydromorphone HCl (Hydromorphone 1 Mg/Ml Syringe) 0.5 - 2 mg IV Q2HP PRN; Protocol PRN Reason: Per Pain Protocol Sodium Chloride (Sodium Chloride 0.9%) 1,000 mls @ 30 mls/hr IV .Q24H [facility] Last Infusion: 11/06/21 00:46 Dose: Infused Documented by: Lorazepam (Lorazepam 2 Mg/Ml Vial) 0 mg IV Q1HP PRN; Protocol PRN Reason: ANXIETY/SEDATION Ondansetron HCl (Ondansetron 4 Mg/2 Ml Vial) 4 mg IV Q6HP PRN PRN Reason: Nausea And Vomiting Last Admin: 10/30/21 04:51 Dose: 4 mg Documented by: Promethazine HCl (Promethazine 25 Mg/Ml Vial) 12.5 mg IV Q4HP PRN PRN Reason: Nausea And Vomiting Last Admin: 10/29/21 23:34 Dose: 12.5 mg Documented by: Sodium Chloride (0.9 % Sodium Chloride 10 Ml Syringe) 10 ml IV Q8 RANDELL Last Admin: 11/06/21 05:56 Dose: Not Given Documented by: A/P Narrative A/P Narrative: Assessment: 75 year old male with a history of diabetes mellitus, obesity, nonhealing decubitus pressure ulcer, colon cancer status post partial hemicolectomy currently receiving chemotherapy who presented to the ED for feeling generally unwell. In the ED, the patient was found to be pancytopenic, likely secondary to chemotherapy, and hypokalemic. The patient was admitted for further evaluation of a gluteal pressure wound. General surgery was consulted and performed debridement of the patient's pressure wound. Neutropenia resolved, the patient felt better however developed nausea, vomiting and tachycardic on the night of 10/30/2021. Work-up with a noncontrast CT abdomen pelvis due to MAYNOR showed a partial large bowel obstruction at the splenic flexure. #Partial large bowel obstruction at the splenic flexure #Acute kidney injury, likely prerenal due to vomiting and bowel obstruction #Intractable nausea and vomiting due to bowel obstruction #Gluteal pressure wounds status post debridement 10/27/2021 #Resolved pancytopenia secondary to chemotherapy #Normocytic anemia #Hypophosphatemia #Bilateral lower extremity pedal edema #Probable liver cirrhosis #Small/moderate ascites #Oropharyngeal candidiasis #Possible mild colonic wall thickening per CT #Diarrhea #Diabetes mellitus #Colon cancer status post partial hemicolectomy currently on chemotherapy #Malnourishment Plan - 11/06: Podiatry will follow up today. Continue supportive care with comfort care orders. -11/05: Due to the patient's clinical deterioration yesterday goals of care discussion was had and he was transition to hospice. 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 He is redeveloped a significant ileus resulting in aspiration. Social work is working on [facility] for [facility]. -11/04: The patient's chest x-ray was unrevealing and his Augmentin has been discontinued. He is afebrile with a normal white blood cell count. We had a long goals of care discussion and a family meeting is scheduled. The patient will benefit from hospice. He remains borderline hypotensive, has poor p.o. 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 -11/03, the patient developed an aspiration event. Will obtain chest x-ray, repeat labs, and start therapy with Augmentin as Unasyn was not available on formulary. Speech eval will be performed. The patient is chronically ill and significantly debilitated. He would highly benefit from palliative services. -NGT out 11/01 -Transfer out of ICU 11/01 -ADAT, awaiting discharge to [facility] -General surgery consulted for partial large bowel obstruction.->Barium study confirmed ileus, no evidence of mass. Transfer to outside facility cancelled. -IV fluid, monitor renal function and urine output. -NG for low intermittent suctioning. -Nystatin for oropharyngeal candidiasis, treat for 7 to 14 days -Correction Humalog SSImedium. -Continue home Atorvastatin and cholestyramine. -Wound cares for left toe wound and gluteal pressure wound. -Offloading gluteal pressure wounds. -N.p.o. except meds. 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 -DVT prophylaxis: Lovenox -Disposition: senior living facility for rehab. Referral to wound care clinic for left toe wound and gluteal pressure wound. Time Spent With Patient Time: Total time spent is greater than 50% in coordination of care (as documented) at patient's floor/unit and/or counseling patient: Total time spent with greater than 50% in coordination of care (as documented) at patient's floor/unit and/or counseling patient:: 35 - 50 minutes QUALITY VTE Deep Vein Thrombosis/Pulmonary Embolism Present on Admission: No
--- NOTE | 2021-11-06 14:27 | Discharge Summary ---
Discharge Provider Provider Patient information: Note initiated : 11/06/21 at 2:24 pm Service Date, if different from initiated Date: [as above] Patient: Will Lyn 75 y/o M admitted on 10/26/21 for Weak. Chief Complaint: [Bowel osbtruction] Date of admission: 10/26/21 17:11 Discharge date: 11/06/21 Primary care physician: Qasim Murphy Admitting clinician: Griffin Anaya Consults: 10/26/21 Consult to Physician [CONS] Stat Comment: Consulting Provider: Griffin Anaya Reason For Exam: Physician to Consult Consult to Physician [CONS] Stat Comment: Consulting Provider: Tunde Mullins Reason For Exam: Physician to Consult 10/26/21 17:19 Consult to Physician [CONS] Stat Comment: Consulting Provider: Tunde Mullins Reason For Exam: Physician to Consult 11/02/21 08:15 Consult to Physician [CONS] Routine Comment: Consulting Provider: [facility] Reason For Exam: Physician to Consult 11/03/21 10:25 Consult to Physician [CONS] Routine Comment: Consulting Provider: Bradley Marr Reason For Exam: Physician to Consult 11/03/21 10:27 Consult to Physician [CONS] Routine Comment: Consulting Provider: Gal Pinto Reason For Exam: Physician to Consult Discharging clinician: Morgan Shepherd Discharge Meds Discharge Medications Home Medications ondansetron HCl 8 mg tablet 8 mg PO Q8HP PRN 10/26/21 [History Confirmed 10/26/21 Last Taken Unknown] hydrocodone 5 mg-acetaminophen 325 mg tablet 1 tab PO Q4HP PRN #30 tab 11/06/21 [Rx Last Taken Unknown] COURSE Hospital Course Hospital course: Assessment: 75 year old male with a history of diabetes mellitus, obesity, nonhealing decubitus pressure ulcer, colon cancer status post partial he micolectomy currently receiving chemotherapy who presented to the ED for feeling generally unwell. In the ED, the patient was found to be pancytopenic, likely secondary to chemotherapy, and hypokalemic. The patient was admitted for further evaluation of a gluteal pressure wound. General surgery was consulted and performed debridement of the patient's pressure wound. Neutropenia resolved, the patient felt better however developed nausea, vomiting and tachycardic on the night of 10/30/2021. Work-up with a noncontrast CT abdomen pelvis due to MAYNOR showed a partial large bowel obstruction at the splenic flexure. When I took over the care of this patient, he was being treated for severe ileus. Barium enema did not reveal an obstructive mass. His bowel sounds are improved and he was able to pass gas. NG tube was removed and his diet was advanced however he nearly aspirated. Repeat CT imaging reveals severely dilated stomach and esophagus. He became hypotensive and a goals of care dis cussion with family occurred. Due to his advanced age severe medical comorbidities, poor nutritional status and bedbound status with multiple wounds, the likelihood of full recovery and good quality of life is quite poor. It was decided to transition him to comfort measures only. #Partial large bowel obstruction at the splenic flexure #Acute kidney injury, likely prerenal due to vomiting and bowel obstruction #Intractable nausea and vomiting due to bowel obstruction #Gluteal pressure wounds status post debridement 10/27/2021 #Resolved pancytopenia secondary to chemotherapy #Normocytic anemia #Hypophosphatemia #Bilateral lower extremity pedal edema #Probable liver cirrhosis #Small/moderate ascites #Oropharyngeal candidiasis #Possible mild colonic wall thickening per CT #Diarrhea #Diabetes mellitus #Colon cancer status post partial hemicolectomy currently on chemotherapy #Malnourishment Plan - 11/06: Podiatry will follow up today. Continue supportive care with comfort care orders. -11/05: Due to the patient's clinical deterioration yesterday goals of care discussion was had and he was transition to hospice. 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 He is redeveloped a significant ileus resulting in aspiration. Social work is working on discharge to [facility] for hospice. -11/04: The patient's chest x-ray was unrevealing and his Augmentin has been discontinued. He is afebrile with a normal white blood cell count. We had a long goals of care discussion and a family meeting is scheduled. The patient will benefit from hospice. He remains borderline hypotensive, has poor p.o. 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 -11/03, the patient developed an aspiration event. Will obtain chest x-ray, repeat labs, and start therapy with Augmentin as Unasyn was not available on formulary. Speech eval will be performed. The patient is chronically ill and s ignificantly debilitated. He would highly benefit from palliative services. -NGT out 11/01 -Transfer out of ICU 11/01 -ADAT, [facility] -General surgery consulted for partial large bowel obstruction.->Barium study confirmed ileus, no evidence of mass. Transfer to outside facility cancelled. -IV fluid, monitor renal function and urine output. -NG for low intermittent suctioning. -Nystatin for oropharyngeal candidiasis, treat for 7 to 14 days -Correction Humalog SSImedium. -Continue home Atorvastatin and cholestyramine. -Wound cares for left toe wound and gluteal pressure wound. -Offloading gluteal pressure wounds. -N.p.o. except meds. 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 -DVT prophylaxis: Lovenox -Disposition: [facility] facility for [facility]. Referral to wound care clinic for left toe wound and gluteal pressure wound. Discharge diagnosis: Bowel obstruction Time Spent with Patient Time attestation: Total time spent providing and/or coordinating discharge services: Time spent: Greater than 30 minutes EXAM Constitutional Vitals: Temp Pulse Resp BP Pulse Ox 97 F 84 19 102/71 95 11/06/21 07:26 11/06/21 07:26 11/06/21 07:26 11/06/21 07:26 11/06/21 07:26 General appearance: average body habitus Head Head exam: Present atraumatic, normal inspection and normocephalic Eye Eye exam: Present EOMI, normal appearance and PERRL; Absent conjunctival injection ENT ENT exam: Present normal exam; Absent mucous membranes dry Neck Neck exam: Present full ROM; Absent lymphadenopathy Respiratory Respiratory exam: Present normal respiratory exam and CTAB; Absent decreased breath sounds, respiratory distress or wheezes Cardiovascular Cardiovascular exam: Present normal rate and rhythm and RRR; Absent JVD GI/Abdominal GI/Abdominal exam: Present normal bowel sounds, soft and distended; Absent diminished bowel sounds, guarding, mass, rebound or tenderness Neurological Exam Neurological exam: Present alert, CN II-XII intact and oriented X3 Psychiatric Psychiatric exam: Present normal affect and normal mood Skin Skin exam: Present intact and warm; Absent erythema, pallor, petechiae or rash Discharge Data Data Completed and Pending Labs on day of discharge: Preliminary micro results at discharge 11/04/21 16:23 Blood Culture - Preliminary Blood 11/04/21 16:09 Blood Culture - Preliminary Blood Discharge Plan Patient/Caregiver Discharge Instructions Activity: as per physical therapy Diet: Dysphagia Level 3 Liquidized Foods Prescriptions: New hydrocodone-acetaminophen 5-325 mg Tablet 1 tab PO Q4HP PRN (Reason: Per Pain Protocol) Qty: 30 0RF Continued ondansetron HCl 8 mg tablet 8 mg PO Q8HP PRN (Reason: Nausea) 0RF Discontinued atorvastatin 80 mg Tablet 80 mg PO HS 0RF metformin 1,000 mg Tablet 1,000 mg PO BID 0RF cinnamon bark [Cinnamon] 500 mg Capsule 1,000 mg PO DAILY 0RF salmon oil-omega-3 fatty acids 1,000-200 mg Capsule 1,000 cap PO DAILY 0RF furosemide 40 mg tablet 1 tab PO QDAY 0RF doxycycline hyclate 100 mg capsule 1 cap PO BID 0RF diphenoxylate-atropine 2.5-0.025 mg tablet 2 tab PO QID 0RF pioglitazone 30 mg tablet 1 tab PO QDAY 0RF cholestyramine (with sugar) 4 gram powder 1 ea PO BID 0RF Follow Up Plan Follow up with: Qasim Murphy DO [Primary Care Provider] - Patient Disposition: Hospice - Medical Facility Rehab Potential: Serious I certify that the patient requires SNF services: Yes Overall status at discharge: patient is not back to baseline Discharge Orders: Discharge Order (Routine); Ordered 11/06/21 Ordered By: Morgan FRIED VTE Deep Vein Thrombosis/Pulmonary Embolism Present on Admission: No
== END 2021-11-06 15:40 | disposition hospice, inpatient (51) | DRG 264 ==
LOC: ED 07:52 → MEDSUR 17:11 → ICU 10-30 11:37 → MEDSUR 11-01 14:47
PROVIDERS: ADMIT Internal Medicine; ATTEND Student in an Organized Health Care Education/Training Program